=== PATIENT | male | born 1940 | race Caucasian/White ===

== ENCOUNTER 2019-09-18 10:50 | Emergency (ER) | payer MEDICARE, SELFPAY ==
[2019-09-18 10:51] VITALS: BP 152/81; PULSE 90; RESP 18; TEMP 36.4; O2SAT 99; BMI 26.1
--- NOTE | 2019-09-18 11:08 | ED.VIS.GEN ---
History of Present Illness Chief Complaint: Hypertension Informant: Patient Narrative: Patient has no current complaints. He stopped taking his diltiazem about 15 days ago due to side effects. He went to the PCPs office today to try to get new medication, he was found to be hypertensive and sent to the emergency department. He has no chest pain shortness of breath fever chills cough or congestion. He denies a headache or visual changes. No difficulty urinating. Past Medical History - Allergies and Home Meds Allergies/Adverse Reactions: Allergies No Known Allergies Allergy (Verified 09/18/19 10:55) Primary Care Physician: Marshall Pineda MD [STAFF PHYSICIAN] - Past Medical History: - - Hypertension Surgical History: tonsillectomy, - - Left arm surgery secondary to laceration Smoking Status: Former smoker - Family History Maternal Family History: Reports: Hypertension Paternal Family History: Reports: Heart Disease Review of Systems All systems negative except as indicated General: Denies: Fever Eyes: Denies: Visual changes - left, Visual changes - right Cardiovascular: Denies: Chest pain Respiratory: Denies: Dyspnea, Cough Gastrointestinal: Denies: Abdominal pain, Nausea Musculoskeletal: Denies: Myalgias, Back pain Neurological: Denies: Headache, Weakness Psych: Denies: Depression Hematologic: Denies: Easy bleeding Allergy: Denies: Swelling of the tongue Physical Exam Vital Signs/Narrative: Vital Signs Temp Pulse Resp BP Pulse Ox 09/18/19 10:51 97.5 F L 90 18 152/81 H 99 General: Well nourished, Well developed Eyes: Perrl ENT: Moist mucous membranes, No rhinorrhea Neck: Supple Cardiovascular: Regular rate, Regular rhythm Respiratory: No distress, CTA bilaterally Abdomen: Soft Back: Nontender, Normal Inspection Extremities: Nontender Skin: Normal color Neurological: Alert, Oriented x3, Normal Strength, Normal Sensation Psychological: Normal affect Diagnostic/Tx/Re-eval - Medical Decision Making Patient has normal renal function. We will change his prescription to a lisinopril hydrochlorothiazide combination. His blood pressure in the emergency department is 152/81. ED Disposition - Plan for ED Patient: Disposition: Home or Assisted Living Diagnosis: Hypertension Instructions: HYPERTENSION, Established Prescriptions: Lisinopril/Hydrochlorothiazide [Lisinopril-Hctz 10-12.5 mg Tab] 1 ea PO DAILY #30 tab Prescription Printed Referrals: Marshall Pineda MD [STAFF PHYSICIAN] - 3-5 Days
[2019-09-18 11:44] LABS: Anion Gap 5 (5-15); BUN 13 mg/dL (7-18); Calcium,Total 9.1 mg/dL (8.5-10.1); Chloride 103 mmol/L (98-107); Creatinine, Serum 0.93 mg/dL (0.70-1.30); EST Glomerular Filtration Rate 83 mL/min (>60); Est Glom Filt Rate - Afr Amer 100 mL/min (>60); Estimated Creatinine Clearance 63.35 ml/min; Glucose 155 mg/dL (74-106); Potassium 4.2 mmol/L (3.5-5.1); Sodium Level 135 mmol/L (136-145)
[2019-09-18 12:04] VITALS: BP 168/69; PULSE 68; RESP 12; O2SAT 97
[2019-09-18] MEDS: hydroCHLOROthiazide 12.5mg 12.5 MG PO (12:05)
[2019-09-18] MEDS: Lisinopril 10 MG Tablet PO (12:06)
== END 2019-09-18 12:15 | disposition home or self-care (01) ==
PROVIDERS: Emergency Provider Emergency Medicine; Family Provider Family Medicine; PCP Family Medicine
DX: I10 Essential (primary) hypertension (principal); Z82.49 Family history of ischemic heart disease and other diseases of the circulatory system; Z87.891 Personal history of nicotine dependence
CPT/HCPCS: 80048; 99284; A4216

== ENCOUNTER → 2019-09-28 08:33 | Outpatient (CLI) | payer MEDICARE, SELFPAY ==
[2019-09-18 10:51] VITALS: BMI 26.1
[2019-09-28 11:31] LABS: Anion Gap 9 (5-15); BUN 15 mg/dL (7-18); BUN/Creat Ratio 16.4 RATIO (10-20); Calcium,Total 9.6 mg/dL (8.5-10.1); Chloride 98 mmol/L (98-107); Cholesterol 156 mg/dL (200); Creatinine, Serum 0.91 mg/dL (0.70-1.30); EST Glomerular Filtration Rate 85 mL/min (>60); Est Glom Filt Rate - Afr Amer 103 mL/min (>60); Glucose 123 mg/dL (74-106); High Density Lipoprotein 43 mg/dL; PSA,Total - Annual Screen 2.53 ng/mL (0.00-4.00); Potassium 3.8 mmol/L (3.5-5.1); Sodium Level 133 mmol/L (136-145); Triglycerides 138 mg/dL; Very Low Density Lipoprotein 28 mg/dL (5-40)
[2019-09-28 17:45] LABS: Hemoglobin A1c 6.3 % (4.2-6.3)
== END ==
PROVIDERS: Family Provider Family Medicine; PCP Family Medicine; Visit Provider Family Medicine
DX: I10 Essential (primary) hypertension (principal); N40.0 Benign prostatic hyperplasia without lower urinary tract symptoms; R73.09 Other abnormal glucose; Z12.5 Encounter for screening for malignant neoplasm of prostate
CPT/HCPCS: 36415; 80048; 80061; 83036; 84153; G0103

== ENCOUNTER 2019-12-24 07:21 | Inpatient (IN) | payer MEDICARE, SELFPAY ==
[2019-12-24] VITALS (16 sets, daily range): BP systolic 158–240; BP diastolic 66–86; PULSE 67–111; RESP 11–18; TEMP 36.5–37.1; O2SAT 97–100; BMI 27.3; BMI 25.9; BMI 26.0
--- NOTE | 2019-12-24 07:29 | RAD_ITS ---
STUDY: X-RAY CHEST REASON FOR EXAM: Male, 79 years old. chest pain, palpitations TECHNIQUE: AP COMPARISON: None. FINDINGS: EKG leads project over the chest. The lungs are clear and expanded. There is no demonstrated pleural abnormality. Normal size heart. Normal mediastinum and rico. Normal visualized pulmonary arteries. Normal visualized aortic arch and descending thoracic aorta. Normal visualized thoracic spine. Normal visualized ribs, clavicles, and shoulders. There is no demonstrated abnormality of the visualized soft tissue structures of the upper abdomen. RAD/Chest PA and Lateral IMPRESSION: Nonacute portable x-ray examination of the chest. Electronically Signed: Neymar De Leon MD (Brooks) at 8:02 EDT , Service support ,
--- NOTE | 2019-12-24 07:29 | EKG12_ITS ---
Test Reason : CP Blood Pressure : / mmHG Vent. Rate : 099 BPM Atrial Rate : 099 BPM P-R Int : 188 ms QRS Dur : 086 ms QT Int : 332 ms P-R-T Axes : 078 -50 081 degrees QTc Int : 426 ms Sinus rhythm with occasional and consecutive Premature ventricular complexes and Fusion complexes Possible Left atrial enlargement Left anterior fascicular block Left ventricular hypertrophy with repolarization abnormality Abnormal ECG Confirmed by KATHLEEN NGUYỄN, KARINA ([id number]), editor producer MILTON MAYEN ([id number]) on 12/25/2019 8:25:21 AM Referred By: ELI Confirmed By:KARINA WANG MD
--- NOTE | 2019-12-24 07:33 | ED.DCSUM_ITS ---
History of Present Illness Chief Complaint: Palpitations Informant: Patient Onset: Yesterday Narrative: Patient presents with home intermittent palpitations and racing heart since yesterday afternoon. States without chest pain with it. No dyspnea or cough. No fevers or myalgias. No nausea or vomiting. History of hypertension and hypercholesterolemia. Denies diabetes heart failure history. History of similar in the past with negative work-ups. 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 States PCP has placed him on Cardizem in the past for blood pressure however had side effects. Currently denies any chest pain. Denies any anticoagulant therapy. Pain substernal no radicular symptoms. EMS EKG evaluated noted electronically atrial fibrillation however on reevaluation noted to be sinus rhythm first- degree block with PAC noted at a rate of 122. He states he has been having more urine frequency since feeling his fast heart rate. No dysuria. Prior similar symptoms: Yes Past Medical History - Allergies and Home Meds Allergies/Adverse Reactions: Allergies No Known Allergies Allergy (Verified 12/24/19 07:28) Past Medical History: - - Hypertension, hypercholesterolemia Surgical History: tonsillectomy, - - Left arm surgery secondary to laceration Smoking Status: Former smoker - Family History Maternal Family History: Reports: Hypertension Paternal Family History: Reports: Heart Disease Review of Systems General: Denies: Chills, Fever, Sweats Eyes: Denies: Visual changes - bilaterally, Diplopia ENT: Denies: Rhinorrhea, Sore throat Cardiovascular: Reports: Chest pain, Palpitations, Heart racing Respiratory: Denies: Dyspnea, Cough, Dyspnea on exertion Gastrointestinal: Denies: Abdominal pain, Nausea, Vomiting, Diarrhea, Melena, Hematochezia Genitourinary: Denies: Dysuria, Hematuria, Frequency Musculoskeletal: Denies: Back pain, Extremity Pain Skin: Denies: Rash, Wounds Neurological: Denies: Headache, Weakness, Numbness Physical Exam Vital Signs/Narrative: Vital Signs Temp Pulse Resp BP Pulse Ox 12/24/19 07:23 98.2 F 108 H 14 240/86 H 100 Inital Vital Signs reviewed: Yes General: Well nourished, Well developed, No Acute Distress Head: Normocephalic, Atraumatic Eyes: Perrl, EOMI ENT: Moist mucous membranes, No rhinorrhea Neck: Supple, Nontender Cardiovascular: Regular rate, Regular rhythm, No murmurs, - - Heart rate 96 on exam Respiratory: No distress, CTA bilaterally, Chest nontender Abdomen: Soft, Nontender, Nondistended, Normal bowel sounds Back: Nontender, Normal Inspection Extremities: Nontender, No edema Skin: Normal color, No rash Neurological: Alert, Oriented x3, Cranial nerves II-XII grossly intact, Normal Strength, Normal Sensation Psychological: Normal affect, Normal Mood Diagnostic/Tx/Re-eval Clinical Impression(s) from Imaging Studies Chest X-Ray 12/24/19 07:29 IMPRESSION: Nonacute portable x-ray examination of the chest. Electronically Signed: Neymar De Leon MD (Brooks) at 8:02 EDT , Service support , Abnormal Lab Results 12/24/19 12/24/19 12/24/19 07:25 07:25 07:25 WBC 14.0 H RBC 4.96 Hgb 15.5 Hct 44.9 MCV 90.5 MCH 31.3 MCHC 34.5 RDW Std Deviation 40.2 RDW Coeff of Yoan 12.1 Plt Count 378 MPV 8.8 Immature Gran % (Auto) 0.400 Neut % (Auto) 76.4 H Lymph % (Auto) 13.6 L [place] % (Auto) 8.7 Eos % (Auto) 0.4 Baso % (Auto) 0.5 Absolute Neuts (auto) 10.7 H Absolute Lymphs (auto) 1.91 Nucleated RBC % 0 Sodium 132 L Potassium 3.0 L Chloride 97 L Carbon Dioxide 24.0 Anion Gap 11 BUN 15 Creatinine 1.10 Estim Creat Clear Calc 51.82 Est GFR (MDRD) Af Amer 83 Est GFR (MDRD) Non-Af 68 BUN/Creatinine Ratio 13.6 Glucose 218 H Calcium 9.5 Magnesium 2.2 Troponin I 0.094 H - EKG Initial EKG Interpretation: Sinus Rhythm - Sinus rate of 99, no ST or T wave changes. PVCs noted. - Medical Decision Making Patient currently chest pain-free intermittent palpitations. EKG sinus rhythm rate of 99, PVCs noted, there is isolated T wave inversion in aVL old from p revious January 2017. He had noted EMS EKG is sinus rhythm with a first-degree AV block. Patient had cardiac work-up initiated. He was given aspirin. Troponin returned at 0.096. Chest x-ray negative. White count 14, he had no cough. With urine frequency UA sent. Potassium 3.0, orally replaced, magnesium sent is normal. Reevaluation blood pressure 216/66, heart rate 100s, will give labetalol to help with blood pressure and heart rate. Patient denies any headache or visual changes with elevated blood pressure. I spoke with patient's shaping machine tender Dr. Pittman at 0825, he states no additional anticoagulants at this time. We will plan on continue beta-blockers, admit to hospitalist service and trend his troponin. He does not plan on stress testing, heart cath if needed depending on repeat troponins. Hospitalist is on page for discussion. Spoke with Dr. London for admission. - Critical Care Time Critical care time (excluding procedures): 30-74 minutes, Discussing w/Consultants, Arranging Admission or Transfer ED Disposition - Plan for ED Patient: Disposition: Acute Care Hospital [facility] Diagnosis: Chest pain, Elevated troponin, Palpitations, Accelerated hypertension, Hypokalemia
[2019-12-24] MEDS: Aspirin 81 MG TAB.CHEW 324 MG PO (07:35)
[2019-12-24 07:40] LABS: Absolute Lymphocyte Count 1.91 X10^3/uL (0.83-4.51); Absolute Neutrophil Count 10.7 X10^3/uL (2.0-7.7); Basophil# 0.07 X10^3/uL; Basophil% 0.5 % (0-1); Eosinophil# 0.06 X10^3/uL; Eosinophils% 0.4 % (0-5); Hematocrit 44.9 % (40-54); Hemoglobin 15.5 g/dL (13.0-16.5); Lymphocyte # 1.91 X10^3/ul (4.0); Lymphocyte % 13.6 % (19-41); Mean Corp Hgb Conc 34.5 g/dL (32-36); Mean Corpuscular Hgb 31.3 pg (27.0-32.0); Mean Corpuscular Volume 90.5 fL (80-94); Mean Platelet Vol. 8.8 fl (6.2-12.0); Monocyte# 1.22 X10^3/uL; Monocyte% 8.7 % (0-10); NRBC Flagged by Analyzer 0 % (0-5); Neutrophil % 76.4 % (47-70); Platelet Count 378 K/mm3 (150-450); RBC Distribution Width CV 12.1 % (11.6-14.6); RBC Distribution Width SD 40.2 fl (35.1-43.9); Red Blood Count 4.96 M/mm3 (4.6-6.2)
[2019-12-24 07:54] LABS: Anion Gap 11 (5-15); BUN 15 mg/dL (7-18); BUN/Creat Ratio 13.6 RATIO (10-20); Calcium,Total 9.5 mg/dL (8.5-10.1); Chloride 97 mmol/L (98-107); EST Glomerular Filtration Rate 68 mL/min (>60); Est Glom Filt Rate - Afr Amer 83 mL/min (>60); Estimated Creatinine Clearance 51.82 ml/min; Glucose 218 mg/dL (74-106); Sodium Level 132 mmol/L (136-145)
[2019-12-24 08:22] LABS: Magnesium 2.2 mg/dL (1.6-2.6)
[2019-12-24 08:27] LABS: Prothrombin Time (Protime)PT. 13.2 SECONDS (11.7-14.9)
[2019-12-24 08:28] LABS: Partial Thromboplast Time 27.6 Seconds (24.1-36.2)
--- NOTE | 2019-12-24 08:34 | HP.PCM_ITS ---
History of Present Illness Date of Admission: 12/24/19 Chief Complaint: palpitations, chest pain The patient is a 79 year old M with a past medical history as outlined. He was admitted through the ED on 12/24/2019 with a complaint of palpitations that started the day before admission. He admitted to associated chest pain with a palpitations. He denied any shortness of breath, dizziness, cough, lightheadedness or dizziness or nausea or vomiting. He admits to a history of recurrent intermittent heart palpitations but denied any history of A. fib. EMS was called and Per ED documentation, EMS EKG noted A. fib but when he came into the ED he was noted to be in sinus rhythm with first-degree block and PACs with a rate of 122. In the ED, he was noted to have severely elevated blood pressure of 240/86 which gradually came down to 192/82. Heart rate was initially 108, but vitals were otherwise stable. CBC showed WBC of 14 was otherwise normal. Initial troponin was 0.094 and potassium was 3 with sodium of 132 and magnesium of 2.2. Chest x-ray showed no acute cardiopulmonary process. He has been admitted to be managed for palpitations and chest pain to rule out ACS. [] Past Medical History Past Medical History (Chronic Problems): Chronic Problems BPH (benign prostatic hyperplasia) (Chronic) Hyperlipemia (Chronic) Hypertension (Chronic) Allergies No Known Allergies Allergy (Verified 12/24/19 07:28) Home Medications: Ambulatory Orders Medication Instructions Recorded Atorvastatin Calcium [Lipitor] 5 mg PO DAILY 12/16/14 Finasteride [Proscar] 5 mg PO DAILY 12/16/14 Cholecalciferol (Vitamin D3) 2,000 unit PO DAILY 10/13/17 [Vitamin D3] Lisinopril/Hydrochlorothiazide 1 ea PO DAILY 12/24/19 [Lisinopril-Hctz 10-12.5 mg Tab] Losartan Potassium [Cozaar] 100 mg PO DAILY 12/24/19 Surgical History: tonsillectomy, - - Left arm surgery secondary to laceration Psychiatric History: No pertinent psych hx Smoking Status: Former smoker - *Family History Maternal History Items: Hypertension Paternal History Items: Heart Disease Review of Systems Constitutional: Denies: Anorexia, Chills, Fever, Malaise, Weakness Eyes: Denies: Blurred vision HEENT: Denies: Head Aches, Sinus Congestion, Sinus Drainage Cardiovascular: Reports: Chest Pain, Palpitations. Denies: Chest Pressure, C hest Tightness, Edema, Heaviness, Light Headedness, Orthopnea, Paroxysmal Noc. Dyspnea, Syncope Respiratory: Denies: Cough, Shortness of Breath, Shortness of breath at rest, S hortness of breath upon exertion, Sputum production Gastrointestinal: Denies: Abdominal Pain, Nausea, Vomiting Genitourinary: Reports: Frequency. Denies: Dysuria Musculoskeletal: Denies: Joint Pain, Joint Tenderness Skin: Denies: Rash, Wounds Neurological: Denies: Numbness, Tingling, Focal weakness Psychiatric: Denies: Anxiety, Depression, Homicidal Ideations, Suicidal Ideations Hematologic/ Lymphatic: Denies: Easy Bruising, Easy Bleeding VTE Information - Inpt Only VTE Present on Admission: No VTE Pharm Prophylaxis ordered?: Yes Patient Problems: Active and Suspected Problems Elevated troponin (Acute) Palpitations (Acute) Accelerated hypertension (Acute) Hypokalemia (Acute) Chest pain (Acute) - Physical Exam Vitals/I&O's: Vital Signs Temp Pulse Resp BP Pulse Ox 98.2 F 108 H 14 240/86 H 100 12/24/19 07:23 12/24/19 07:23 12/24/19 07:23 12/24/19 07:23 12/24/19 07:23 Oxygen Delivery Method Room Air Weight: 180 lb Body Mass Index (BMI) 27.3 General: Alert, Oriented x3, Cooperative, No apparent distress HEENT: Atraumatic, PERRLA, EOMI, Normocephalic Oral: Moist Mucosa Neck: Supple, No JVD, Negative Carotid Bruits Lungs: Clear to auscultation, Normal air movement, No rhonchi, No wheeze, No rales Cardiovascular: Regular rate, Regular Rhythm, Normal S1, Normal S2, No murmurs Abdomen: Bowel Sounds Present, Soft, Non Tender, Non-Distended, No Hepato- splenomegaly Extremities: No clubbing, No cyanosis, No edema, Capillary Refill Less than 3 Seconds Skin: No rashes, No breakdown Musculoskeletal: No Tenderness to Palpation of Joints or Extremities Lymphatic: No Cervical, Supraclavicular, or Inguinal Adenopathy Neurological: Cranial nerves II-XII grossly intact, Neuro grossly intact, Motor Exam 5/5 strength throughout Psych/Mental Status: Normal Affect, Appropriate, Alert and oriented to time, place, person, mood and affect Laboratory Results 12/24/19 07:25: WBC 14.0 H, RBC 4.96, Hgb 15.5, Hct 44.9, MCV 90.5, MCH 31.3, MCHC 34.5, RDW Std Deviation 40.2, RDW Coeff of Yoan 12.1, Plt Count 378, MPV 8.8, Immature Gran % (Auto) 0.400, Neut % (Auto) 76.4 H, Lymph % (Auto) 13.6 L, [place] % (Auto) 8.7, Eos % (Auto) 0.4, Baso % (Auto) 0.5, Absolute Neuts (auto) 10.7 H, Absolute Lymphs (auto) 1.91, Nucleated RBC % 0 12/24/19 07:25: PT 13.2, INR 1.0, APTT 27.6 12/24/19 07:25: Sodium 132 L, Potassium 3.0 L, Chloride 97 L, Carbon Dioxide 24.0, Anion Gap 11, BUN 15, Creatinine 1.10, Estim Creat Clear Calc 51.82, Est GFR (MDRD) Af Amer 83, Est GFR (MDRD) Non-Af 68, BUN/Creatinine Ratio 13.6, Glucose 218 H, Calcium 9.5, Troponin I 0.094 H 12/24/19 07:25: Magnesium 2.2 Diagnostic Data Chest X-Ray 12/24/19 07:29 IMPRESSION: Nonacute portable x-ray examination of the chest. Electronically Signed: eNymar De Leon MD (Brooks) at 8:02 EDT , Service support , Assessment/Plan All Active Problems Elevated troponin (Acute) Palpitations (Acute) Accelerated hypertension (Acute) Hypokalemia (Acute) Chest pain (Acute) 79 y/o admitted with a complaint of palpitations and chest pain 1. Hypertensive emergency * BP was 240/86 on admission, with associated chest pain and palpitations, meets criteria for hypertensive emergency * BP came down to 192/82 with medication * patient claims compliance with home BP meds. * on lisinopril/HCTZ and losartan. Will give PO clonidine 0.3mg once. * hold lisinopril/HCTZ and continue losartan 100mg daily. add on metoprolol 25mg bid * 2. Chest pain * patient says he has chest pain with tachycardia * initial troponiin was 0.094, and trended up to 0.162 * EKG showed no acute ST changes * cycle troponins * PO aspirin 81mg daily. SL nitroglycerin prn for chest pain * cardiology consulted. 3. Sinus tachycardia * HR was 108 on admission, but is now down to 72 * potassium is 3, which could be contributing. mg is 2.2 * will start on metoprolol 25mg bid. * IV labetalol prn 4. BPH: on finasteride. 5. Hyperlipidemia: on statin DVT prophylaxis: lovenox Code status: full code * Patient counseled extensively about different types of CODE STATUS including full code, DNR CCA and DNR CCA. Patient elects to be full code. Total awhc-yx-inut time 16 minutes. Inpatient E&M: 77921 Init Hosp L3 Procedures: 55796 Advncd Care Plan 30 Min
--- NOTE | 2019-12-24 10:01 | ECHOD_ITS ---
Reason For Study: Arrhythmia Procedure This was a 2D Doppler, Color Flow transthoracic echocardiogram. Exam performed portable in patient room. Left Ventricle Normal LV size. Left ventricular systolic function is normal. The estimated ejection fraction is 60 %. Stage 2 diastolic dysfunction. No regional wall motion abnormalities noted. Right Ventricle Normal RV size. Normal systolic function. Atria Normal left atrium. Normal right atrium. Mitral Valve Normal mitral valve. Tricuspid Valve Normal tricuspid valve. Mild (1+) tricuspid valve insufficiency. Pulmonary artery systolic pressure is 30 mmHg. Aortic Valve Normal aortic valve. Trisinus/trileaflet aortic valve. Pulmonic Valve Normal pulmonic valve. Great Vessels Normal aortic root. The pulmonary artery is normal size. Normal inferior vena cava. Pericardium/Pleural No pericardial effusion. MMode/2D Measurements & Calculations LVIDd: 4.1 cm IVSd: 1.1 cm Ao root diam: 3.2 cm LVIDs: 2.2 cm LVPWd: 1.1 cm RVDd: 3.5 cm FS: 45.2 % LAV(MOD-bp): 43.9 ml LA A4 area: 15.8 cm2 LA dimension(2D): 3.5 cm LAV(MOD-bp) Indexed: 22.8 ml/m2 LAV(MOD-sp2): 45.1 ml LAV(MOD-sp4): 40.8 ml RA A4 area: 14.7 cm2 Doppler Measurements & Calculations MV E max prem: 144.1 cm/sec Lat Peak E' Prem: 12.2 cm/sec Med Peak E' Prem: 6.1 cm/sec MV A max prem: 116.6 cm/sec E/E' lat: 11.9 E/E' med: 23.5 MV E/A: 1.2 MV V2 max: 138.6 cm/sec MV P1/2t max prem: 132.1 cm/sec Ao V2 max: 163.6 cm/sec MV max P.7 mmHg MV P1/2t: 63.1 msec Ao max P.7 mmHg MV V2 mean: 88.0 cm/sec MV dec slope: 613.4 cm/sec2 MV mean P.5 mmHg MVA(P1/2t): 3.5 cm2 MV V2 VTI: 38.2 cm LV V1 max: 110.0 cm/sec PA V2 max: 113.7 cm/sec TR max prem: 258.6 cm/sec LV V1 max P.8 mmHg TR max P.7 mmHg Interpretation Summary Normal LV size. Left ventricular systolic function is normal. The estimated ejection fraction is 60 %. Stage 2 diastolic dysfunction. Structurally normal valves. Ordering Physician: Saumya London Referring Physician: Evelio Villalba Performed By: Jyoti Gastelum RDCS
--- NOTE | 2019-12-24 11:29 | CASEMGMT ---
Patient has a Healthcare Power of Coin Box Inspector and a Healthcare Living will. He is aware they are not on file at [facility] and to bring in copies when able. Idalia SEE MSW
[2019-12-24] MEDS: Metoprolol Tartrate 25 MG Tablet PO (11:35)
[2019-12-24] MEDS: cloNIDine HCl 0.1 MG Tablet (11:47)
[2019-12-24] MEDS: Clonidine HCl 0.1 MG, Clonidine HCl 0.2 MG 0.3 MG PO (12:02)
[2019-12-24 13:34] LABS: Mucous, Urine 0 SEEN /hpf (<or=2+); Squamous Epithelial Cells - UA 0 SEEN /hpf (0-5); White Blood Cells 0 SEEN /hpf (0-5)
[2019-12-24 13:39] LABS: Color, Urine Yellow (Yellow); Glucose, Dipstick 50 mg/dl (Normal); Ketone-Dipstick Negative (Negative); Leukocyte Esterase-Dipstick 25 /ul (Negative); Nitrite-Dipstick Negative (Negative); Occult Blood-Urine 25 /ul (Negative); Protein-Dipstick Negative (Negative); Urine Bilirubin Dipstick Negative (Negative); Urine Clarity Clear (Clear); Urine Urobilinogen Normal (Normal)
[2019-12-24 13:45] LABS: Bacteria RARE /hpf (None Seen); Red Blood Cells-Urine 0-5 SEEN /hpf (0-5)
--- NOTE | 2019-12-24 15:10 | CON.PCM_ITS ---
Reason for Consult Date of Consultation: 12/24/19 Reason for Consultation: Chest pain and irregular heartbeat History of Present Illness: The patient is a 79 year old M with a past medical history of palpitations. He was admitted through the ED on 12/24/2019 with a complaint of palpitations that started the day before admission. He admitted to associated chest pain with a palpitations. He denied any shortness of breath, dizziness, cough, lightheadedness or dizziness or nausea or vomiting. He admits to a history of recurrent intermittent heart palpitations but denied any history of A. fib. EMS was called and Per ED documentation, EMS EKG noted A. fib but when he came into the ED he was noted to be in sinus rhythm with first-degree block and PACs with a rate of 122. In the ED, he was noted to have severely elevated blood pressure of 240/86 which gradually came down to 192/82. Heart rate was initially 108, but vitals were otherwise stable. He was treated with intravenous labetalol and I was called for further evaluation and management. Of note was the fact that approximately 5 years ago the patient underwent stress testing where he exercised to 7 metabolic equivalents with peaked T waves being noted. No obvious ischemia was noted though the patient did develop some chest discomfort requiring sublingual nitroglycerin. He did not follow-up for care. He says that at this particular time he is free of any chest discomfort. [] Past Medical History Allergies/Adverse Reactions: Allergies No Known Allergies Allergy (Verified 12/24/19 07:28) Home Medications: Ambulatory Orders Medication Instructions Recorded Atorvastatin Calcium [Lipitor] 5 mg PO DAILY 12/16/14 Finasteride [Proscar] 5 mg PO DAILY 12/16/14 Cholecalciferol (Vitamin D3) 2,000 unit PO DAILY 10/13/17 [Vitamin D3] Lisinopril/Hydrochlorothiazide 1 ea PO DAILY 12/24/19 [Lisinopril-Hctz 10-12.5 mg Tab] Losartan Potassium [Cozaar] 100 mg PO DAILY 12/24/19 Past Medical History (Chronic Problems): Chronic Problems BPH (benign prostatic hyperplasia) (Chronic) Hyperlipemia (Chronic) Hypertension (Chronic) Surgical History: tonsillectomy, - - Left arm surgery secondary to laceration Psychiatric History: No pertinent psych hx - *Family History Maternal History Items: Hypertension Paternal History Items: Heart Disease Lives: Spouse/ Significant Other Smoking Status: Former smoker Tobacco Use: Non-smoker Alcohol: None Drugs: None Review of Systems - Review of Systems General: Denies: Fever, Night Sweats, Fatigue HEENT: Denies: Vision Change Cardiovascular: Reports: Chest Discomfort, Palpitations. Denies: Shortness of Breath, Orthopnea, PND, Peripheral Edema, Lightheadedness, Dizziness, Near Syncope, Syncope Respiratory: Denies: Cough, Sputum Production, Hemoptysis Gastrointestinal: Denies: Hematemesis, Hematochezia, Melena Genitourinary: Denies: Dysuria, Hematuria Muscoloskeletal: Denies: Myalgias Skin: Denies: Rash Neurological: Denies: Dizziness Psychiatric: Denies: Anxiety Hematologic/ Lymphatic: Denies: Anemia Subjectve: Pleasant gentleman in no distress Objective: Vital Signs Temp Pulse Resp BP Pulse Ox 98.7 F 81 16 158/74 H 99 12/24/19 13:24 12/24/19 14:39 12/24/19 13:24 12/24/19 13:24 12/24/19 13:24 Oxygen Delivery Method Room Air Weight: 170 lb 13.732 oz Body Mass Index (BMI) 25.9 General: Awake, Alert, Oriented x 3 HEENT: PERRL, EOMI, Sclera Non Icteric Neck: Supple, Good ROM, No Lymph Node Enlargement Lungs: Clear to auscultation Cardiovascular: Regular Rhythm, Normal S1, Normal S2, No Murmurs, No Rubs, No Gallops Vascular: No Carotid Bruits, Normal Femoral Pulses, Normal Radial Pulses, Normal Dorsalis Pedal Pulse, Normal Posterior Tibial Pulses Abdomen: Bowel Sounds Present, Soft, Non Tender, No HSM, No Organomegaly Extremities: No Cyanosis, No Clubbing, No edema Musculoskeletal: No Erythema Skin: No Rashes Lymphatic: No Lymph Node Enlargement Neurological: No Focal Motor or Sensory Deficit Psych/Mental Status: Appropriate 12/24/19 07:25: WBC 14.0 H, RBC 4.96, Hgb 15.5, Hct 44.9, MCV 90.5, MCH 31.3, MCHC 34.5, Plt Count 378, MPV 8.8, Immature Gran % (Auto) 0.400, Neut % (Auto) 76.4 H, Lymph % (Auto) 13.6 L, Travis % (Auto) 8.7, Eos % (Auto) 0.4, Baso % (Auto) 0.5, Absolute Neuts (auto) 10.7 H, Nucleated RBC % 0 12/24/19 07:25: PT 13.2, INR 1.0, APTT 27.6 12/24/19 07:25: Sodium 132 L, Potassium 3.0 L, Chloride 97 L, Carbon Dioxide 24.0, Anion Gap 11, BUN 15, Creatinine 1.10, Est GFR (MDRD) Af Amer 83, Est GFR (MDRD) Non-Af 68, BUN/Creatinine Ratio 13.6, Glucose 218 H, Calcium 9.5, Troponin I 0.094 H 12/24/19 07:25: Magnesium 2.2 12/24/19 07:25: Magnesium Cancelled 12/24/19 10:30: Troponin I 0.162 H 12/24/19 13:20: Urine Color Yellow, Urine Clarity Clear, Urine pH 7.0, Ur Specific [place] 1.010, Urine Protein Negative, Urine Glucose (UA) 50 H, Urine Ketones Negative, Urine Occult Blood 25 H, Urine Nitrite Negative, Urine Bilirubin Negative, Urine Urobilinogen Normal, Ur Leukocyte Esterase 25 H, Urine RBC 0-5 SEEN, Urine WBC 0 SEEN 12/24/19 13:35: Troponin I 0.159 H Rhythm: EKG: Normal sinus rhythm with frequent premature ventricular complexes ECHO: Preserved left ventricular systolic function Stress Test: Cardiac Cath: PCI: CT Surgery: Holter monitor: EPS: PPM: CXR: Chest CT Scan: Assessment/Plan 1. Chest discomfort * Patient presents with chest discomfort which is somewhat atypical. It appears to be related to the premature ventricular complexes however the fact that he was at rest is somewhat concerning. In addition his cardiac enzymes appear to be trending upwards. This is concerning especially in light of the fact that his last stress test was not completely normal. He is of course hesitant about repeating his stress test at this time and therefore I would like to recommend that we obtain visualization of his coronary anatomy. The risk benefits and alternatives have been explained to him he understands and agrees to proceed. * It is possible that the above was secondary to his markedly elevated blood pressure. His echocardiogram demonstrated overall preserved left ventricular systolic function. No LVH was noted. * 2. Severe uncontrolled hypertension-hypertensive emergency * Patient presents with hypertensive emergency and requires treatment with intravenous labetalol. He appears to be doing fairly well at this particular time. * His echocardiogram demonstrated preserved left ventricular systolic function * My recommendation will be for him to continue with the losartan * Discontinue hydrochlorothiazide * Metoprolol 50 mg twice a day * May need to add amlodipine if blood pressure still elevated * If blood pressure does not improve may need to screen for secondary hyperaldosteronism 3. Hyperlipidemia * His lipid profile appears to be under good control at this time * We will continue risk factor modification * * Thank you for allowing me to participate in the care of your patient. Please don't hesitate to call if any issues arise.
[2019-12-24] MEDS: Clopidogrel Bisulfate 300 MG Tablet PO (16:51)
[2019-12-24] MEDS: 0.9% Saline Lock 10 ML Syringe IV (19:18)
[2019-12-24] MEDS: Metoprolol Tartrate 50 MG Tablet PO (21:46)
[2019-12-24] MEDS: Atorvastatin Calcium 20 MG Tablet PO (21:47)
[2019-12-25] VITALS (30 sets, daily range): BP systolic 89–141; BP diastolic 39–61; PULSE 48–77; RESP 10–18; TEMP 36.3–37; O2SAT 92–99
--- NOTE | 2019-12-25 05:55 | EKG12_ITS ---
Test Reason : AM EKG Blood Pressure : / mmHG Vent. Rate : 068 BPM Atrial Rate : 068 BPM P-R Int : 208 ms QRS Dur : 080 ms QT Int : 426 ms P-R-T Axes : 035 -46 032 degrees QTc Int : 452 ms Normal sinus rhythm Left anterior fascicular block Abnormal ECG When compared with ECG of 24-DEC-2019 07:24, MANUAL COMPARISON REQUIRED, DATA IS UNCONFIRMED Confirmed by ROMARIO THORNTON ([id number]), food expeditor DANNI LOOMIS ([id number]) on 12/27/2019 8:02:06 AM Referred By: DR MONTEZ Confirmed By:ROMARIO THORNTON
[2019-12-25 06:19] LABS: Absolute Lymphocyte Count 1.71 X10^3/uL (0.83-4.51); Absolute Neutrophil Count 8.8 X10^3/uL (2.0-7.7); Basophil# 0.05 X10^3/uL; Basophil% 0.4 % (0-1); Eosinophil# 0.08 X10^3/uL; Eosinophils% 0.7 % (0-5); Hematocrit 44.4 % (40-54); Hemoglobin 15.1 g/dL (13.0-16.5); Lymphocyte # 1.71 X10^3/ul (4.0); Lymphocyte % 14.4 % (19-41); Mean Corpuscular Hgb 30.8 pg (27.0-32.0); Mean Corpuscular Volume 90.4 fL (80-94); Mean Platelet Vol. 8.7 fl (6.2-12.0); Monocyte# 1.27 X10^3/uL; Monocyte% 10.7 % (0-10); NRBC Flagged by Analyzer 0 % (0-5); Neutrophil # 8.75 X10^3/uL (2.7-7.7); Neutrophil % 73.5 % (47-70); Platelet Count 376 K/mm3 (150-450); RBC Distribution Width CV 12.7 % (11.6-14.6); Red Blood Count 4.91 M/mm3 (4.6-6.2); White Blood Count 11.9 K/mm3 (4.4-11.0)
[2019-12-25] MEDS: Aspirin E.C. 81 MG Tablet PO (06:32)
[2019-12-25] MEDS: Clopidogrel Bisulfate 75 MG Tablet PO (06:32)
[2019-12-25 07:01] LABS: Anion Gap 7 (5-15); BUN 17 mg/dL (7-18); BUN/Creat Ratio 20.7 RATIO (10-20); Calcium,Total 9.2 mg/dL (8.5-10.1); Chloride 105 mmol/L (98-107); Creatinine, Serum 0.82 mg/dL (0.70-1.30); EST Glomerular Filtration Rate 96 mL/min (>60); Est Glom Filt Rate - Afr Amer 116 mL/min (>60); Estimated Creatinine Clearance 69.51 ml/min; Glucose 141 mg/dL (74-106); Potassium 4.7 mmol/L (3.5-5.1); Sodium Level 134 mmol/L (136-145); Thyroid Stim Hormone (TSH) 1.93 uIU/mL (0.358-3.74)
--- NOTE | 2019-12-25 07:42 | CASEMGMT ---
According to [facility], the following are in-network tertiary facilities: [facility], [place], [facility], [place], [facility], [facility], [place], [facility], and . Dwight ORELLANA CM
--- NOTE | 2019-12-25 08:40 | PN.CARD_ITS ---
Subjectve: Patient seen and evaluated and appears to be doing well Objective: Vital Signs Temp Pulse Resp BP Pulse Ox 97.6 F L 64 11 L 89/41 L 98 12/25/19 06:28 12/25/19 06:53 12/25/19 06:28 12/25/19 06:30 12/25/19 06:28 Oxygen Delivery Method Room Air Weight: 170 lb 13.732 oz Body Mass Index (BMI) 25.9 Intake and Output for Last 24 Hours 12/23/19 12/24/19 12/25/19 23:59 23:59 23:59 Intake Total 750 / 750 40 / 40 Balance 750 / 750 40 / 40 General: Awake, Alert, Oriented x 3 HEENT: PERRL, EOMI, Sclera Non Icteric Neck: Supple, Good ROM, No Lymph Node Enlargement Lungs: Clear to auscultation Cardiovascular: Regular Rhythm, Normal S1, Normal S2, No Murmurs, No Rubs, No Gallops Vascular: No Carotid Bruits, Normal Femoral Pulses, Normal Radial Pulses, Normal Dorsalis Pedal Pulse, Normal Posterior Tibial Pulses Abdomen: Bowel Sounds Present, Soft, Non Tender, No HSM, No Organomegaly Extremities: No Cyanosis, No Clubbing, No edema Musculoskeletal: No Erythema Skin: No Rashes Lymphatic: No Lymph Node Enlargement Neurological: No Focal Motor or Sensory Deficit Psych/Mental Status: Appropriate 12/24/19 07:25: Magnesium Cancelled 12/24/19 10:30: Troponin I 0.162 H 12/24/19 13:20: Urine Color Yellow, Urine Clarity Clear, Urine pH 7.0, Ur Specific [place] 1.010, Urine Protein Negative, Urine Glucose (UA) 50 H, Urine Ketones Negative, Urine Occult Blood 25 H, Urine Nitrite Negative, Urine Bilirubin Negative, Urine Urobilinogen Normal, Ur Leukocyte Esterase 25 H, Urine RBC 0-5 SEEN, Urine WBC 0 SEEN 12/24/19 13:35: Troponin I 0.159 H 12/25/19 05:40: WBC 11.9 H, RBC 4.91, Hgb 15.1, Hct 44.4, MCV 90.4, MCH 30.8, MCHC 34.0, Plt Count 376, MPV 8.7, Immature Gran % (Auto) 0.300, Neut % (Auto) 73.5 H, Lymph % (Auto) 14.4 L, Sampson % (Auto) 10.7 H, Eos % (Auto) 0.7, Baso % (Auto) 0.4, Absolute Neuts (auto) 8.8 H, Nucleated RBC % 0 12/25/19 05:40: Sodium 134 L, Potassium 4.7, Chloride 105, Carbon Dioxide 22.0, Anion Gap 7, BUN 17, Creatinine 0.82, Est GFR (MDRD) Af Amer 116, Est GFR (MDRD) Non-Af 96, BUN/Creatinine Ratio 20.7 H, Glucose 141 H, Calcium 9.2 Rhythm: EKG: ECHO: Stress Test: Cardiac Cath: PCI: CT Surgery: Holter monitor: EPS: PPM: CXR: Chest CT Scan: Medical Necessity - Tobacco Use Smoking Status: Former smoker Tobacco Use: Non-smoker Assessment/Plan 1. Chest discomfort * Patient presents with chest discomfort which is somewhat atypical. It appears to be related to the premature ventricular complexes however the fact that he was at rest is somewhat concerning. * He underwent cardiac catheterization which demonstrated the following: * Normal left main coronary artery * Left anterior descending artery with minimal disease * Codominant left circumflex artery with distal 90% stenosis * Right coronary artery with moderate mid segment stenosis * Preserved left ventricular systolic function * Based on the above the patient underwent angioplasty and stenting of the distal left circumflex artery. * Will discharge in a.m. * 2. Severe uncontrolled hypertension-hypertensive emergency * Patient presents with hypertensive emergency and requires treatment with intravenous labetalol. He appears to be doing fairly well at this particular time. * His echocardiogram demonstrated preserved left ventricular systolic function * My recommendation will be for him to continue with the losartan * Discontinue hydrochlorothiazide * Metoprolol 50 mg twice a day * May need to add amlodipine if blood pressure still elevated * If blood pressure does not improve may need to screen for secondary hyp eraldosteronism 3. Hyperlipidemia * His lipid profile appears to be under good control at this time * We will continue risk factor modification * * Thank you for allowing me to participate in the care of your patient. Please don't hesitate to call if any issues arise.
--- NOTE | 2019-12-25 08:59 | CL.D_ITS ---
Patient Name: MICHAEL HENRY Study Date: 12/25/2019 Performing: Albaro Pittman MD Ht: 68.11 inches 173 cm : 1940 Wt: 171.96 lbs 78 kg Age: 79 Gender: male BSA: 1.92 PROCEDURE(S) PERFORMED BW53-IIM/COR/LV BP21-MSQ W OR WO PTCA, SINGLE CORONARY ARTERY CLINICAL PROFILE AND INDICATIONS Indications: Suspected CAD, Suspected CAD Heart Failure: None Stress/Imaging Stress/Image Study Performed: No CAD Presentations: Unstable angina. 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 Preserved ejection fraction RECOMMENDATIONS Referred for immediate PCI DESCRIPTION OF PROCEDURE The patient arrived to the procedure lab. The risks and benefits of the procedure as well as a full d escription of our services here and current unavailability of surgical backup were fully explained to the patient and/or their significant other prior to the catheterization. The Timeout was completed, verifying the correct patient and procedure. The patient's procedural site was prepped and draped in the usual fashion. Local anesthetic was given subcutaneously to right radial region with Lidocaine 2% . Using a modified Seldinger technique, arterial access was obtained via the right radial artery, a 6 Fr sheath was inserted. Left Coronary Artery selective angiography was performed in multiple views u sing a 5 Fr. JL3.5 catheter. Right Coronary Artery selective angiography was then performed in multip le views using a 5 Fr. JR 4 catheter. LV to AO pullback pressures were then recorded. Left Ventriculo graphy was performed in BETH projection using a 5 Fr. Pigtail catheter.The arterial sheath was pulled and a TR Band was applied for hemostasis - 11CC AIR CORONARY ANGIOGRAPHY DOMINANCE: Co- Dominant LEFT HEART ASSESSMENT Left Ventricular Ejection Fraction: by LV Gram 60 % Normal Left Ventricular systolic function LEFT MAIN: Angiographically normal LEFT ANTERIOR DESCENDING ARTERY: Mild luminal irregularities CIRCUMFLEX ARTERY: PROX CIRC: Mild luminal irregularities LT PDA: Left PDA: Mid - 90 % Stenosis RIGHT CORONARY ARTERY: Moderate luminal irregularities up to 50% COMPLICATIONS No Complications PROCEDURE MEDICATIONS Versed 1 mg IV Fentanyl 25 mcg IV Fentanyl 25 mcg IV Versed 2 mg IV Oxygen: 2 L/min via nasal cannula Heparin diluted in 23cc Heparinized saline. Patient given 10cc IA of this solution. 12/25/2019 08:09: 44 Heparin 6000 unit(s) IV 12/25/2019 08:31:18 Nitro 200 mcg IC 12/25/2019 08:39:24 Nitro 200 mcg IC 12/25/2019 08:39:24 Verapamil 2.5mg, Ntg 100mcgs, 2000 units of Heparin diluted in 23cc Heparinized saline. Patient give n 10cc IA of this solution. 12/25/2019 08:09:44 IV Bolus: .9 NaCl 350ml total 12/25/2019 08:14:31 IV Fluids: .9 NaCl decreased to 150 ml/hr 12/25/2019 08:53:45 SUMMARY OF HEMODYNAMIC DATA Time AIR REST ECG 07:46:03 AO 78/37 (47) SA 08:13:53 AO 170/77 (115) 08:19:17 LV 87/0, 7 08:27:51 LV 119/1, 15 08:28:36 LV 118/0, 14 08:28:43 LVp 120/0, 15 08:28:48 AOp 94/45 (60) 08:28:53 Signed By Albaro Pittman MD On 12/25/2019 08:58:55 Albaro Pittman MD
--- NOTE | 2019-12-25 09:09 | EKG12_ITS ---
Test Reason : POST STENT PLACEMENT Blood Pressure : / mmHG Vent. Rate : 064 BPM Atrial Rate : 064 BPM P-R Int : 226 ms QRS Dur : 138 ms QT Int : 460 ms P-R-T Axes : 060 002 171 degrees QTc Int : 474 ms Sinus rhythm with 1st degree A-V block Left bundle branch block Abnormal ECG When compared with ECG of 25-DEC-2019 05:49, MANUAL COMPARISON REQUIRED, DATA IS UNCONFIRMED Confirmed by ROMARIO THORNTON ([id number]), online content editor DANNI LOOMIS ([id number]) on 12/27/2019 7:51:51 AM Referred By: HILLARY Confirmed By:ROMARIO THORNTON
[2019-12-25 09:11] LABS: ACT Activated Clotting Time 235 sec (74-137)
--- NOTE | 2019-12-25 09:26 | CL.I_ITS ---
Patient Name: MICHAEL HENRY Study Date: 12/25/2019 Performing: Derek Weldon MD Ht: 68.11 inches 173 cm : 1940 Wt: 171.96 lbs 78 kg Age: 79 Gender: male BSA: 1.92 PROCEDURE(S) PERFORMED KH40-RFC W OR WO PTCA, SINGLE CORONARY ARTERY CLINICAL PROFILE AND CO-MORBIDITIES Patient presents with NSTEMI for urgent cardiac cath Indications: Suspected CAD, Suspected CAD, ACS > 24 hrs, New Onset Angina <= 2 months, Suspected CAD Heart Failure: None Stress/Imaging Stress/Image Study Performed: No Stress/Image Study Performed: No Angina Classification Anginal Classification w/in 2 Weeks: CCS III CAD Presentations: Unstable angina. Unstable angina. Non-STEMI. Symptom onset Date/Time: 0 Time Not Available Comorbidities/Risk Factors: Hypertension Dyslipidemia CONCLUSIONS Successful PTCA/GORDO distal LCX with a 2.25 x 24 Promus Synergy at 12 BRENNAN; 75%-->0%, no dissection. RECOMMENDATIONS Highly recommend quitting all tobacco products Follow up with primary therapeutic recreation leader Risk factor modification ASA Indefinitley Plavix for at least 12 months Routine post interventional care Refer for Outpatient Cardiac Rehab Manual sheath removal per protocol Follow up with Dr. Pittman TR band placed with good tamponade. DESCRIPTION OF PROCEDURE The patient arrived to the procedure lab. The risks and benefits of the procedure as well as a full d escription of our services here and current unavailability of surgical backup were fully explained to the patient and/or their significant other prior to the catheterization. The Timeout was completed, verifying the correct patient and procedure. The patient's procedural site was prepped and draped in the usual fashion. Local anesthetic was given subcutaneously to right radial region with Lidocaine 2% Using a modified Seldinger technique,arterial access was obtained via the right radial artery, a 6Fr sheath was inserted. Left Coronary Artery selective angiography was performed in multiple views usin g a 5 Fr. JL3.5 catheter. Right Coronary Artery selective angiography was then performed in multiple views using a 5 Fr. JR 4 catheter. LV to AO pullback pressures were then recorded. Left Ventriculogra phy was performed in BETH projection using a 5 Fr. Pigtail catheter.The images were reviewed and options discussed. A decision was then made to proceed with an Intervention, IVUS or oth er adjunct procedure. EBU 3.5 Guide catheter was inserted and engaged into the LCA. BMW Guide wire was advanced to the DISTAL CIRC. Angiogram performed pre balloon dilatation. 2.0X12 EMERGE Balloon catheter was inserted. Balloon catheter was advanced across lesion in the circumflex, distal. PTCA balloon inflated at 6 at ms for 12 secs. PTCA balloon inflated at 6 atms for 8 secs. PTCA balloon inflated at 6 atms for 6 sec s. PTCA balloon inflated at 8 atms for 11 secs. Angiogram performed post balloon dilatation. Angiogra m performed pre stent deployment. 2.25X20 SYNERGY Drug Eluting stent was inserted. Drug Eluting stent was removed intact, failed to cross lesion 2.25X24 SYNERGY Drug Eluting stent was inserted. Angiogra m performed pre stent deployment. Angiogram performed post stent deployment. The arterial sheath wa s pulled and a TR Band was applied for hemostasis - 11CC AIR INTERVENTION INFORMATION LESION SITE: Circumflex (Distal) Lesion Complexity: High/C, lesion at bifurcation: No, lesion length: 24 mm, thrombus present: No, cul prit lesion: Yes Pre Stenosis: 75 % Pre intervention KITA flow: 3 PROCEDURE: Drug Eluting Stent with pre dilatation. Post Stenosis: 0 % Post intervention KITA flow: 3 Lesion Devices: Lara .014 BMW [place] Straight 190cm Dedrick Sci EMERGE MR 2.00x12 BALLOON Dedrick Sci Synergy MR GORDO 2.25x24 COMPLICATIONS No Complications PROCEDURE MEDICATIONS Versed 1 mg IV Fentanyl 25 mcg IV Fentanyl 25 mcg IV Versed 2 mg IV Oxygen: 2 L/min via nasal cannula Heparin diluted in 23cc Heparinized saline. Patient given 10cc IA of this solution. 12/25/2019 08:09: 44 Heparin 6000 unit(s) IV 12/25/2019 08:31:18 Nitro 200 mcg IC 12/25/2019 08:39:24 Nitro 200 mcg IC 12/25/2019 08:39:24 Verapamil 2.5mg, Ntg 100mcgs, 2000 units of Heparin diluted in 23cc Heparinized saline. Patient give n 10cc IA of this solution. 12/25/2019 08:09:44 IV Bolus: .9 NaCl 350ml total 12/25/2019 08:14:31 IV Fluids: .9 NaCl decreased to 150 ml/hr 12/25/2019 08:53:45 SUMMARY OF HEMODYNAMIC DATA Time AIR REST ECG 07:46:03 AO 78/37 (47) SA 08:13:53 AO 170/77 (115) 08:19:17 LV 87/0, 7 08:27:51 LV 119/1, 15 08:28:36 LV 118/0, 14 08:28:43 LVp 120/0, 15 08:28:48 AOp 94/45 (60) 08:28:53 Signed By Derek Weldon MD On 12/25/2019 9:25:45 AM Derek Weldon MD
[2019-12-25] MEDS: 0.9% Normal Saline 1,000 ML 150 ML IV (09:42)
[2019-12-25] MEDS: Finasteride 5 MG Tablet PO (09:43)
--- NOTE | 2019-12-25 10:00 | EKG12_ITS ---
Test Reason : AM EKG Blood Pressure : / mmHG Vent. Rate : 082 BPM Atrial Rate : 082 BPM P-R Int : 206 ms QRS Dur : 088 ms QT Int : 378 ms P-R-T Axes : 028 -46 065 degrees QTc Int : 441 ms Normal sinus rhythm Left anterior fascicular block Abnormal ECG When compared with ECG of 25-DEC-2019 09:21, MANUAL COMPARISON REQUIRED, DATA IS UNCONFIRMED Confirmed by ROMARIO THORNTON ([id number]), editor magazine DANNI LOOMIS ([id number]) on 12/27/2019 7:56:46 AM Referred By: MELIDA Confirmed By:ROMARIO THORNTON
[2019-12-25 10:10] LABS: ACT Activated Clotting Time 197 sec (74-137)
--- NOTE | 2019-12-25 10:33 | CRPHASE1 ---
Cardiac Rehabilitation Info Cardiac Rehabilitation Program Information: Cardiac Rehabilitation is important for patients like you who are recovering from a heart problem. Cardiac rehabilitation programs are recognized as integral to the continued care of the patient with coronary heart disease. The cardiac rehabilitation program is designed to optimize a patient's physical, psychological, and social functioning. Health career services director work in cardiac rehabilitation programs and assist you with getting the treatments you need to get stronger and healthier - like exercise, healthy eating habits, and medications. Cardiac rehabilitation has been show to help people with heart problems live longer and have better life enjoyment than people who do not go to cardiac rehabilitation. Please contact the Cardiac Rehabilitation Program at [facility] at in two weeks if you have not heard from them.
--- NOTE | 2019-12-25 12:41 | CRPHASE1 ---
Patient Communication PHII Cardiac Rehab Discussed with Patient:: Yes Guide to Cardiac Rehab Given to Patient:: Yes Cardiac Rehab Facility Choice List Given to Patient:: Yes Choice Program [facility] CR PHII:: Communication Given to CR, Refer to [facility] Discharge/Home/Social Eval Discharge Disposition: Home - PT DENIES NEED OR WANT OF ATTENDING CR AT THIS TIME. Cardiac Rehabilitation Info Cardiac Rehabilitation Program Information: Cardiac Rehabilitation is important for patients like you who are recovering from a heart problem. Cardiac rehabilitation programs are recognized as integral to the continued care of the patient with coronary heart disease. The cardiac rehabilitation program is designed to optimize a patient's physical, psychological, and social functioning. Health care trainer work in cardiac rehabilitation programs and assist you with getting the treatments you need to get stronger and healthier - like exercise, healthy eating habits, and medications. Cardiac rehabilitation has been show to help people with heart problems live longer and have better life enjoyment than people who do not go to cardiac rehabilitation. Please contact the Cardiac Rehabilitation Program at [facility] at in two weeks if you have not heard from them.
[2019-12-25] MEDS: Nitroglycerin Oint 1 INCH PACKET TRANSDERM. ×3 (12:43→23:03)
--- NOTE | 2019-12-25 12:44 | CRPH1.INSTRU ---
General Education CAD and cardiac anatomy and function:: Not instructed Explanation of diagnoses and procedures:: Not instructed Sign/Symptoms of [place]:: Not instructed Antiplatelet therapy: Needs reinforcement Proper use of NTG-SL: Not instructed Emergency procedures and activation of EMS: Not instructed Compliance of all prescribed medications: Not instructed Smoking Nicotine/Smoking Response Code:: Not instructed Dyslipidemia Recommendations Include:: Lipid profile not available Overweight/Obesity Overweight/Obesity:: Not instructed Hypertension Hypertension:: Needs reinforcement, Not instructed Heart Disease Heart Disease Response Code:: Not instructed Diabetes Patient Diabetes Risk Factors Are:: No documented hx of diabetes Metabolic Syndrome Metabolic Syndrome Response Code:: Not instructed Sedentary Sedentary Response Code:: Not instructed Stress Stress Response Code:: Not instructed - PT DENIES NEED OR DESIRE TO ATTEND CR
--- NOTE | 2019-12-25 12:45 | CASEMGMT ---
REYNA RUBY assessment: Face to Face with patient for initial transition planning/care coordination assessment. RN CM introduced self and role at [facility], pt voices understanding and consents to assessment at this time. Pt is sitting up in bed in no distress at this time. Pt is A/Ox4 at this time and answers all questions appropriately at this time. Care providers, pharmacy, and demographics verified at this time. Presentation: Palpitations since yesterday, increases w/ exertion, also c/o CP Admitting dx: Palpitations PCP: Orly Specialists: Toya cardio Preferred Pharmacy: [facility] Insurance: [facility] Prescription Benefit: [facility] Living Will/HPOA: Pt states has a LW/HPOA and is aware that they are not on file at [facility] at this time. Pt states that his , Cheryl Lindquist, is HPOA. LNOK: Cheryl Lindquist, Living Arrangements: Pt states lives with in home and states no concerns at home at this time. Pt states is independent with ADL's. Transportation: Pt states drives self and states no transportation concerns at this time. DME/HHC: Pt states no current DME or need for any at this time. Pt states no hx of HHC or SNF in the past. Pt states no concerns with going home at time of discharge. Pt states is retired. Pt states does not smoke or drink ETOH. Pt states no further concerns/needs at this time. Pt does get somewhat upset with this RN CM at this time and frustrated with answering questions but as this RN CM continued to talk/let pt vent, pt states he is upset because he came in for palpitations and no one is 'fixing that or telling me what they are from.' Dr. London and Jane ORELLANA updated on all, voice understanding and both into room at this time. Pt Goal: Home Plan: [place] REYNA RUBY
--- NOTE | 2019-12-25 12:49 | PN_ITS ---
Patient Problems: Active and Suspected Problems (Last Updated 12/25/19 @ 13:56 by Veronica Zimmerman) Elevated troponin (Acute) Palpitations (Acute) Accelerated hypertension (Acute) Hypokalemia (Acute) Chest pain (Acute) Subjective: Patient seen and examined. He was seen after cardiac cath. He had no complaints. Review of symptoms otherwise negative. He has remained hemodynamically stable. Findings of cath with single-vessel coronary artery disease involving the distal circumflex artery had mild to moderate disease noted in the RCA and he had PCI of the distal circumflex artery. Vitals/I&O's: Vital Signs Temp Pulse Resp BP Pulse Ox 98.4 F 68 15 111/51 L 98 12/25/19 10:40 12/25/19 12:43 12/25/19 12:40 12/25/19 12:43 12/25/19 12:40 Oxygen Delivery Method Room Air Weight: 170 lb 13.732 oz Body Mass Index (BMI) 25.9 Intake and Output for Last 24 Hours 12/23/19 12/24/19 12/25/19 23:59 23:59 23:59 Intake Total 750 / 750 40 / 40 Balance 750 / 750 40 / 40 General: Alert, Oriented x3, Cooperative, No apparent distress HEENT: Atraumatic, PERRLA, EOMI, Normocephalic Oral: Moist Mucosa Neck: Supple, No JVD, Negative Carotid Bruits Lungs: Clear to auscultation, Normal air movement, No rhonchi, No wheeze, No rales Cardiovascular: Regular rate, Regular Rhythm, Normal S1, Normal S2, No murmurs Abdomen: Bowel Sounds Present, Soft, Non Tender, Non-Distended, No Hepato- splenomegaly Extremities: No clubbing, No cyanosis, No edema, Capillary Refill Less than 3 Seconds Skin: No rashes, No breakdown, right wrist dressing Musculoskeletal: No Tenderness to Palpation of Joints or Extremities Lymphatic: No Cervical, Supraclavicular, or Inguinal Adenopathy Neurological: Cranial nerves II-XII grossly intact, Neuro grossly intact, Motor Exam 5/5 strength throughout Psych/Mental Status: Normal Affect, Appropriate, Alert and oriented to time, place, person, mood and affect Laboratory Results 12/24/19 13:20: Urine Color Yellow, Urine Clarity Clear, Urine pH 7.0, Ur Specific [place]idental 1.010, Urine Protein Negative, Urine Glucose (UA) 50 H, Urine Ketones Negative, Urine Occult Blood 25 H, Urine Nitrite Negative, Urine Bilirubin Negative, Urine Urobilinogen Normal, Ur Leukocyte Esterase 25 H, Urine RBC 0-5 SEEN, Urine WBC 0 SEEN, Ur Squamous Epith Cells 0 SEEN, Urine Bacteria RARE, Urine Mucus 0 SEEN 12/24/19 13:35: Troponin I 0.159 H 12/25/19 05:40: WBC 11.9 H, RBC 4.91, Hgb 15.1, Hct 44.4, MCV 90.4, MCH 30.8, MCHC 34.0, RDW Std Deviation 42.0, RDW Coeff of Yoan 12.7, Plt Count 376, MPV 8.7, Immature Gran % (Auto) 0.300, Neut % (Auto) 73.5 H, Lymph % (Auto) 14.4 L, [place] % (Auto) 10.7 H, Eos % (Auto) 0.7, Baso % (Auto) 0.4, Absolute Neuts (auto) 8.8 H, Absolute Lymphs (auto) 1.71, Nucleated RBC % 0 12/25/19 05:40: Sodium 134 L, Potassium 4.7, Chloride 105, Carbon Dioxide 22.0, Anion Gap 7, BUN 17, Creatinine 0.82, Estim Creat Clear Calc 69.51, Est GFR (MDRD) Af Amer 116, Est GFR (MDRD) Non-Af 96, BUN/Creatinine Ratio 20.7 H, Glucose 141 H, Calcium 9.2, TSH 1.93 12/25/19 08:50: Activated Clotting Time 235 H 12/25/19 09:55: Activated Clotting Time 197 H Diagnostic Data Chest X-Ray 12/24/19 07:29 IMPRESSION: Nonacute portable x-ray examination of the chest. Electronically Signed: Neymar De Leon MD (Brooks) at 8:02 EDT , Service support , Current Medications Acetaminophen (Tylenol) 650 mg PO Q6H PRN PRN PRN Reason: Pain Score 1-3/10 Aspirin (Ecotrin) 81 mg PO DAILY@0800 THANH Last Admin: 12/25/19 06:32 Dose: 81 mg Documented by: Atorvastatin Calcium (Lipitor) 20 mg PO QHS [facility] Last Admin: 12/24/19 21:47 Dose: 20 mg Documented by: Atropine Sulfate () 0.5 mg IV UD PRN PRN Reason: HR <50 bpm Clopidogrel Bisulfate (Plavix) 75 mg PO DAILY [facility] Last Admin: 12/25/19 06:32 Dose: 75 mg Documented by: Finasteride (Proscar) 5 mg PO DAILY [facility] Last Admin: 12/25/19 09:43 Dose: 5 mg Documented by: Glucagon () 1 mg IM .X1 PRN PRN Reason: Hypoglycemia Heparin Sodium (Beef Lung) (Heparin 500 Unit/5 Ml (100/Ml)) 500 unit IV UD PRN PRN Reason: HEPARIN FLUSH Sodium Chloride () 250 mls @ 15 mls/hr IV .[id number] PRN PRN Reason: Saline Flush Sodium Chloride () 250 mls @ 15 mls/hr IV .[id number] PRN PRN Reason: Additional IVPB Infusion Dextrose (Dextrose 10%-Water) 250 mls @ 999 mls/hr IV .Q16M PRN; Protocol PRN Reason: HYPOGLYCEMIA Sodium Chloride () 1,000 mls @ 15 mls/hr IV .Q48H [facility] Last Admin: 12/25/19 09:32 Dose: Not Given Documented by: Sodium Chloride () 1,000 mls @ 150 mls/hr IV .Q6H40M [facility] Stop: 12/25/19 15:52 Last Admin: 12/25/19 09:42 Dose: 150 mls/hr Documented by: Labetalol HCl (Trandate) 10 mg IV Q4H PRN PRN PRN Reason: BLOOD PRESSURE ELEVATION Last Admin: 12/24/19 19:13 Dose: 10 mg Documented by: Labetalol HCl (Trandate) 5 mg IV X1 PRN PRN Reason: SBP > 160 when pulling sheath Lorazepam (Ativan) 1 mg PO Q6H PRN PRN PRN Reason: BACK SPASMS/ANXIETY Losartan Potassium (Cozaar) 100 mg PO DAILY [facility] Last Admin: 12/25/19 10:37 Dose: Not Given Documented by: Metoclopramide HCl (Reglan) 5 mg IV Q6H PRN PRN PRN Reason: NAUSEA/VOMITING Metoprolol Tartrate (Lopressor (Beta Eric)) 50 mg PO BID [facility] Last Admin: 12/25/19 10:37 Dose: Not Given Documented by: Morphine Sulfate () 2 - 4 mg IV Q4H PRN PRN PRN Reason: Pain Score 1-10/10 Nitroglycerin (Nitrobid) 1 inch TRANSDERM. Q6 [facility] Stop: 12/26/19 10:00 Last Admin: 12/25/19 12:43 Dose: 1 inch Documented by: Nitroglycerin (Nitrostat) 0.4 mg SUBLINGUAL Q5M PRN PRN Reason: CARDIAC/CHEST PAIN Ondansetron HCl (Zofran) 4 mg IV Q8H PRN PRN PRN Reason: NAUSEA/VOMITING Sodium Chloride () 10 - 40 ml IV UD PRN PRN Reason: SALINE FLUSH Last Admin: 12/24/19 19:18 Dose: 20 ml Documented by: Sodium Chloride () 500 ml IV BOLUS PRN PRN Reason: VASO-VAGAL PROTOCOL STROKE Vital Signs/Narrative: Vital Signs Temp Pulse Resp BP Pulse Ox 12/25/19 12:43 68 111/51 L 12/25/19 12:40 67 15 111/51 L 98 12/25/19 12:10 63 16 106/47 L 96 12/25/19 11:40 61 16 117/46 L 99 12/25/19 11:25 58 L 16 125/59 H 96 12/25/19 11:10 62 16 105/51 L 99 12/25/19 11:05 66 12/25/19 10:55 63 14 126/61 H 97 12/25/19 10:40 98.4 F 69 16 92/42 L 96 12/25/19 10:25 64 18 98/49 L 99 12/25/19 10:10 64 16 94/49 L 99 12/25/19 09:55 67 16 96/48 L 97 12/25/19 09:40 72 18 92/39 L 92 12/25/19 09:25 48 L 16 94/42 L 93 12/25/19 09:10 97.3 F L 74 18 112/55 L 97 Medical Necessity - Tobacco Use Smoking Status: Former smoker Tobacco Use: Non-smoker Assessment/Plan All Active Problems (Last Updated 12/25/19 @ 13:56 by Veronica A Elsie) Elevated troponin (Acute) Palpitations (Acute) Accelerated hypertension (Acute) Hypokalemia (Acute) Chest pain (Acute) 79 y/o admitted with a complaint of palpitations and chest pain 1. Hypertensive emergency * BP is now down to 111/51 * on losartan 100mg daily and metoprolol 50mg bid. * * 2. CAD s/p stent * troponin peaked at 0.162 * had cardiac cath today which showed single vessel disease of distal left circumflex artery, with PCI and drug eluting stent placement * on aspirin and statin as well as plavix. 3. Sinus tachycardia * resolved. HR now normalised * on metoprolol 50mg bid. 4. BPH: on finasteride. 5. Hyperlipidemia: on statin DVT prophylaxis: lovenox Code status: full code * Inpatient E&M: 26400 Subs Hosp L2
--- NOTE | 2019-12-25 14:38 | PCM.PN.BLA ---
Progress Note Patient will be contacted by [facility] for an office appointment in approximately 4 weeks. STROKE Vital Signs/Narrative: Vital Signs Temp Pulse Resp BP Pulse Ox 12/25/19 13:40 73 16 98/41 L 97 12/25/19 12:43 68 111/51 L 12/25/19 12:40 67 15 111/51 L 98 12/25/19 12:10 63 16 106/47 L 96 12/25/19 11:40 61 16 117/46 L 99 12/25/19 11:25 58 L 16 125/59 H 96 12/25/19 11:10 62 16 105/51 L 99 12/25/19 11:05 66 12/25/19 10:55 63 14 126/61 H 97 12/25/19 10:40 98.4 F 69 16 92/42 L 96
[2019-12-25] MEDS: Atorvastatin Calcium 20 MG Tablet PO (22:15)
[2019-12-26] VITALS (7 sets, daily range): BP systolic 126–150; BP diastolic 57–67; PULSE 74–81; RESP 16; TEMP 36.8; O2SAT 98
[2019-12-26 06:12] LABS: Absolute Lymphocyte Count 1.24 X10^3/uL (0.83-4.51); Absolute Neutrophil Count 9.8 X10^3/uL (2.0-7.7); Basophil# 0.05 X10^3/uL; Basophil% 0.4 % (0-1); Eosinophil# 0.11 X10^3/uL; Eosinophils% 0.9 % (0-5); Hematocrit 39.5 % (40-54); Hemoglobin 13.3 g/dL (13.0-16.5); Lymphocyte # 1.24 X10^3/ul (4.0); Mean Corp Hgb Conc 33.7 g/dL (32-36); Mean Corpuscular Hgb 31.1 pg (27.0-32.0); Mean Corpuscular Volume 92.3 fL (80-94); Mean Platelet Vol. 8.9 fl (6.2-12.0); Monocyte# 1.09 X10^3/uL; Monocyte% 8.8 % (0-10); NRBC Flagged by Analyzer 0 % (0-5); Neutrophil # 9.77 X10^3/uL (2.7-7.7); Neutrophil % 79.3 % (47-70); Platelet Count 295 K/mm3 (150-450); RBC Distribution Width CV 12.7 % (11.6-14.6); Red Blood Count 4.28 M/mm3 (4.6-6.2); White Blood Count 12.3 K/mm3 (4.4-11.0)
[2019-12-26] MEDS: Nitroglycerin Oint 1 INCH PACKET TRANSDERM. (06:34)
[2019-12-26 06:50] LABS: ALB/GLOB Ratio 0.9 RATIO (0.9-2.4); AST(SGOT) 32 U/L (15-37); Alanine Aminotransfer ALT/SGPT 38 U/L (16-61); Albumin, Serum 3.2 g/dL (3.2-5.0); Alkaline Phosphatase 63 U/L (45-117); Anion Gap 10 (5-15); BUN 21 mg/dL (7-18); BUN/Creat Ratio 30.2 RATIO (10-20); Calcium,Total 8.5 mg/dL (8.5-10.1); Chloride 105 mmol/L (98-107); EST Glomerular Filtration Rate 116 mL/min (>60); Est Glom Filt Rate - Afr Amer 140 mL/min (>60); Globulin 3.4 g/dL (2.2-4.2); Glucose 129 mg/dL (74-106); Potassium 4.3 mmol/L (3.5-5.1); Protein, Total 6.6 g/dL (6.4-8.2); Sodium Level 133 mmol/L (136-145)
[2019-12-26] MEDS: Aspirin E.C. 81 MG Tablet PO (08:24)
[2019-12-26] MEDS: Losartan Potassium 100 MG Tablet PO (08:24)
[2019-12-26] MEDS: Metoprolol Tartrate 50 MG Tablet PO (08:24)
[2019-12-26] MEDS: Clopidogrel Bisulfate 75 MG Tablet PO (08:24)
[2019-12-26] MEDS: Finasteride 5 MG Tablet PO (08:24)
--- NOTE | 2019-12-26 09:32 | PCM.PN.CARD ---
Subjectve: Patient doing very well, no 24-hour events. Has no chest pain. Right radial site is clean/dry/intact with excellent pulses and capillary refill. Hemoglobin and creatinine within nominal limits. KG shows normal sinus rhythm, no acute changes. Objective: Vital Signs Temp Pulse Resp BP Pulse Ox 98.3 F 79 16 150/66 H 98 12/26/19 08:21 12/26/19 08:24 12/26/19 08:21 12/26/19 08:21 12/26/19 08:21 Oxygen Delivery Method Room Air Weight: 170 lb 13.732 oz Body Mass Index (BMI) 25.9 Intake and Output for Last 24 Hours 12/24/19 12/25/19 12/26/19 23:59 23:59 23:59 Intake Total 750 / 750 1790 / 1790 0 / 0 Balance 750 / 750 1790 / 1790 0 / 0 General: Awake, Alert, Oriented x 3 HEENT: PERRL, EOMI, Sclera Non Icteric Neck: Supple, Good ROM, No Lymph Node Enlargement Lungs: Clear to auscultation Cardiovascular: Regular Rhythm, Normal S1, Normal S2, No Murmurs, No Rubs, No Gallops Vascular: No Carotid Bruits, Normal Femoral Pulses, Normal Radial Pulses, Normal Dorsalis Pedal Pulse, Normal Posterior Tibial Pulses Abdomen: Bowel Sounds Present, Soft, Non Tender, No HSM, No Organomegaly Extremities: No Cyanosis, No Clubbing, No edema Neurological: No Focal Motor or Sensory Deficit 12/26/19 05:22: WBC 12.3 H, RBC 4.28 L, Hgb 13.3, Hct 39.5 L, MCV 92.3, MCH 31.1, MCHC 33.7, Plt Count 295, MPV 8.9, Immature Gran % (Auto) 0.600, Neut % (Auto) 79.3 H, Lymph % (Auto) 10.0 L, [place] % (Auto) 8.8, Eos % (Auto) 0.9, Baso % (Auto) 0.4, Absolute Neuts (auto) 9.8 H, Nucleated RBC % 0 12/26/19 05:22: Sodium 133 L, Potassium 4.3, Chloride 105, Carbon Dioxide 18.0 L, Anion Gap 10, BUN 21 H, Creatinine 0.70, Est GFR (MDRD) Af Amer 140, Est GFR (MDRD) Non-Af 116, BUN/Creatinine Ratio 30.2 H, Glucose 129 H, Calcium 8.5, Total Bilirubin 0.90 Rhythm: EKG: ECHO: Stress Test: Cardiac Cath: PCI: CT Surgery: Holter monitor: EPS: PPM: CXR: Chest CT Scan: Medical Necessity - Tobacco Use Smoking Status: Former smoker Tobacco Use: Non-smoker Assessment/Plan 1. Coronary artery disease: Patient status post angioplasty and drug-eluting stenting to his distal left circumflex receiving a 2.25X 24 Promus Synergy stent with an excellent result. Patient has minimal nonobstructive coronary disease of his remaining coronary vessels. He denies any chest pain feels much better. Would recommend he continue baby aspirin, Plavix, antihypertensive therapy as outlined in the MRF, and be enrolled in cardiac rehab in the next week or 2. The patient will follow-up with Dr. Pittman going forward. Patient may be discharged home from a cardiac standpoint. 2. Hyperlipidemia: Continue Lipitor therapy. Repeat lipid profile in 6 weeks time. 3. Hypertension: I believe the patient's hypertension is a major component to his anginal symptoms, and responded well to nitrate-based therapy. Recommend starting him on Imdur 30 mg p.o. daily going forward in addition to his losartan and metoprolol. He will return in 2 weeks time to our office for a blood pressure check. 4. Patient may be discharged home and follow-up with Dr. Pittman going forward. Inpatient E&M: 21553 [facility] Hosp L2
--- NOTE | 2019-12-26 09:39 | DCINST_ITS ---
- Discharge Diagnoses Current Active Problems: Current Active and Chronic Problems (Last Updated 12/25/19 @ 13:56 by Veronica Zimmerman) Atherosclerosis of coronary artery without angina pectoris (Chronic) Successful PTCA/GORDO distal LCX with a 2.25 x 24 Promus Synergy 12/25/2019 Stented coronary artery (Chronic 12/25/19) Successful PTCA/GORDO distal LCX with a 2.25 x 24 Promus Synergy 12/25/2019 Elevated troponin (Acute) Palpitations (Acute) Accelerated hypertension (Acute) Hypokalemia (Acute) Chest pain (Acute) You will use the following diet at home:: Cardiac Your food should be the consistency of: Regular Your liquids should be the consistency of: Regular/Thin Discharge Activity: Return to Normal Activity Weight Bearing Status: Weight bearing as tolerated Call your doctor if you observe: Shortness of breath, Dizziness, Fainting spells, Chest pain, Increased palpitations (irregular heartbeat) Instructions: ED Palpitations, First Aid: Heart Attacks, Heart Attack, Symptoms of a Heart Attack, Exercising After a Heart Attack, Know the Medications You're Taking Allergies/Adverse Reactions: Allergies No Known Allergies Allergy (Verified 12/24/19 07:28) Medications to take at Discharge Finasteride [Proscar] 5 mg PO DAILY 12/16/14 Cholecalciferol (Vitamin D3) [Vitamin D3] 2,000 unit PO DAILY 10/13/17 Aspirin E.C. [Ecotrin] 81 mg PO DAILY@0800 #30 tab 12/26/19 Atorvastatin Calcium [Lipitor] 40 mg PO QHS #30 tab 12/26/19 Clopidogrel Bisulfate [Plavix] 75 mg PO DAILY #30 tab 12/26/19 Losartan Potassium [Cozaar] 100 mg PO DAILY #30 tab 12/26/19 Metoprolol Tartrate [Lopressor (beta ino)] 50 mg PO BID #60 tab 12/26/19 The following prescriptions were given: Losartan Potassium [Cozaar] 100 mg PO DAILY #30 tab Transmission Status: Pending to [facility] #30 Aspirin E.C. [Ecotrin] 81 mg PO DAILY@0800 #30 tab Transmission Status: Pending to [facility] #30 Atorvastatin Calcium [Lipitor] 40 mg PO QHS #30 tab Transmission Status: Pending to [facility] #30 Metoprolol Tartrate [Lopressor (beta ino)] 50 mg PO BID #60 tab Transmission Status: Pending to [facility] #30 Clopidogrel Bisulfate [Plavix] 75 mg PO DAILY #30 tab Transmission Status: Pending to [facility] #30 Orders to be completed after discharge: Phase II, Outpatient Cardiac Rehab Location: None Selected Primary Care Physician: Evelio Villalba MD [Primary Care Provider] - Please follow up with your Primary Care Physician in: ONE WEEK Test Results: Test results from this visit will be discussed in further detail at your follow- up appointment, if applicable. Please Follow Up With: Albaro Pittman MD When: 2-4 WEEKS Proposed Discharge Date: 12/26/19
--- NOTE | 2019-12-26 09:41 | PCM.DC.SUM ---
Discharge Date and Diagnosis Date of Admission: 12/24/19 Date of Discharge: 12/26/19 - Primary Discharge Diagnosis Active and Suspected Problems (Last Updated 12/25/19 @ 13:56 by Veronica Zimmerman) Elevated troponin (Acute) Palpitations (Acute) Accelerated hypertension (Acute) Hypokalemia (Acute) Chest pain (Acute) CAD - Secondary Discharge Diagnosis Chronic Problems (Last Updated 12/25/19 @ 13:56 by Veronica Zimmerman) Atherosclerosis of coronary artery without angina pectoris (Chronic) Successful PTCA/GORDO distal LCX with a 2.25 x 24 Promus Synergy 12/25/2019 Stented coronary artery (Chronic 12/25/19) Successful PTCA/GORDO distal LCX with a 2.25 x 24 Promus Synergy 12/25/2019 BPH (benign prostatic hyperplasia) (Chronic) Hyperlipemia (Chronic) Hypertension (Chronic) Hospital Course and Treatment Imaging Results: Diagnostic Data Chest X-Ray 12/24/19 07:29 IMPRESSION: Nonacute portable x-ray examination of the chest. Electronically Signed: Neymar De Leon MD (Brooks) at 8:02 EDT , Service support , cardiology- Dr Pittman Operations: None Procedures: Cardiac catheterization Summary of Care Provided: The patient is a 79 year old M with a past medical history as outlined. He was admitted through the ED on 12/24/2019 with a complaint of palpitations that started the day before admission. He admitted to associated chest pain with a palpitations. He denied any shortness of breath, dizziness, cough, lightheadedness or dizziness or nausea or vomiting. He admits to a history of recurrent intermittent heart palpitations but denied any history of A. fib. EMS was called and Per ED documentation, EMS EKG noted A. fib but when he came into the ED he was noted to be in sinus rhythm with first-degree block and PACs with a rate of 122. In the ED, he was noted to have severely elevated blood pressure of 240/86 which gradually came down to 192/82. Heart rate was initially 108, but vitals were otherwise stable. CBC showed WBC of 14 was otherwise normal. Initial troponin was 0.094 and potassium was 3 with sodium of 132 and magnesium of 2.2. Chest x-ray showed no acute cardiopulmonary process. He was admitted to be managed for hypertensive emergency and chest pain rule out ACS as well as palpitations. Lisinopril and hydrochlorothiazide was discontinued and he was continued on his losartan and placed on p.o. metoprolol 50 mg twice daily. Troponins trended up to a peak of 0.162. Cardiology was consulted and patient was taken for cardiac cath which showed single-vessel coronary artery disease involving the distal circumflex artery. He also had mild disease noted in the RCA. Patient had PCI with drug-eluting stent placement of the distal circumflex artery. He was placed on aspirin and Plavix. Patient tachycardia resolved and he felt as well. He remained stable hemodynamically and was discharged home on 12/26/2019 with a prescription for p.o. aspirin 80 mg daily, p.o. Plavix 75 mg daily, and p.o. atorvastatin 40 mg nightly. He was also given a prescription for p.o. metoprolol 50 mg twice daily. He is follow-up with his primary care doctor and with cardiology within 2 to 3 weeks. Patient seen and examined prior to discharge. He felt well and said he felt ready to go home. Review of symptoms otherwise negative. Labs and vitals reviewed. Home medication reviewed and reconciled. o/e: Vital Signs Height 5 ft 8 in Weight: 170 lb 13.732 oz Weight in Pounds 170.9 lbs Pulse Ox 98 Temperature 98.3 F Pulse Rate 79 Respiratory Rate 16 Blood Pressure [BP] 112/53 Blood Pressure 150/66 Blood Pressure Position [BP] Semi-Fowlers Blood Pressure Position Semi-Fowlers General: Alert, Oriented x3, Cooperative, No apparent distress HEENT: Atraumatic, PERRLA, EOMI, Normocephalic Oral: Moist Mucosa Neck: Supple, No JVD, Negative Carotid Bruits Lungs: Clear to auscultation, Normal air movement, No rhonchi, No wheeze, No rales Cardiovascular: Regular rate, Regular Rhythm, Normal S1, Normal S2, No murmurs Abdomen: Bowel Sounds Present, Soft, Non Tender, Non-Distended, No Hepato-splenomegaly Extremities: No clubbing, No cyanosis, No edema, Capillary Refill Less than 3 Seconds Skin: No rashes, No breakdown, right wrist dressing Musculoskeletal: No Tenderness to Palpation of Joints or Extremities Lymphatic: No Cervical, Supraclavicular, or Inguinal Adenopathy Neurological: Cranial nerves II-XII grossly intact, Neuro grossly intact, Motor Exam 5/5 strength throughout Psych/Mental Status: Normal Affect, Appropriate, Alert and oriented to time, place, person, mood and affect Plan is for discharge home today as above. - Physical Exam Vitals/I&O's: Vital Signs Temp Pulse Resp BP Pulse Ox 98.3 F 79 16 150/66 H 98 12/26/19 08:21 12/26/19 08:24 12/26/19 08:21 12/26/19 08:21 12/26/19 08:21 Oxygen Delivery Method Room Air Weight: 170 lb 13.732 oz Body Mass Index (BMI) 25.9 Intake and Output for Last 24 Hours 12/24/19 12/25/19 12/26/19 23:59 23:59 23:59 Intake Total 750 / 750 1790 / 1790 0 / 0 Balance 750 / 750 1790 / 1790 0 / 0 Laboratory Results 12/25/19 09:55: Activated Clotting Time 197 H 12/26/19 05:22: WBC 12.3 H, RBC 4.28 L, Hgb 13.3, Hct 39.5 L, MCV 92.3, MCH 31.1, MCHC 33.7, RDW Std Deviation 43.0, RDW Coeff of Yoan 12.7, Plt Count 295, MPV 8.9, Immature Gran % (Auto) 0.600, Neut % (Auto) 79.3 H, Lymph % (Auto) 10.0 L, [place] % (Auto) 8.8, Eos % (Auto) 0.9, Baso % (Auto) 0.4, Absolute Neuts (auto) 9.8 H, Absolute Lymphs (auto) 1.24, Nucleated RBC % 0 12/26/19 05:22: Sodium 133 L, Potassium 4.3, Chloride 105, Carbon Dioxide 18.0 L, Anion Gap 10, BUN 21 H, Creatinine 0.70, Estim Creat Clear Calc 57.00, Est GFR (MDRD) Af Amer 140, Est GFR (MDRD) Non-Af 116, BUN/Creatinine Ratio 30.2 H, Glucose 129 H, Calcium 8.5, Total Bilirubin 0.90, AST 32, ALT 38, Alkaline Phosphatase 63, Total Protein 6.6, Albumin 3.2, Globulin 3.4, Albumin/Globulin Ratio 0.9 Current Medications Acetaminophen (Tylenol) 650 mg PO Q6H PRN PRN PRN Reason: Pain Score 1-3/10 Aspirin (Ecotrin) 81 mg PO DAILY@0800 [facility] Last Admin: 12/26/19 08:24 Dose: 81 mg Documented by: Atorvastatin Calcium (Lipitor) 20 mg PO QHS [facility] Last Admin: 12/25/19 22:15 Dose: 20 mg Documented by: Atropine Sulfate () 0.5 mg IV UD PRN PRN Reason: HR <50 bpm Clopidogrel Bisulfate (Plavix) 75 mg PO DAILY [facility] Last Admin: 12/26/19 08:24 Dose: 75 mg Documented by: Finasteride (Proscar) 5 mg PO DAILY [facility] Last Admin: 12/26/19 08:24 Dose: 5 mg Documented by: Glucagon () 1 mg IM .X1 PRN PRN Reason: Hypoglycemia Heparin Sodium (Beef Lung) (Heparin 500 Unit/5 Ml (100/Ml)) 500 unit IV UD PRN PRN Reason: HEPARIN FLUSH Sodium Chloride () 250 mls @ 15 mls/hr IV .[id number] PRN PRN Reason: Saline Flush Sodium Chloride () 250 mls @ 15 mls/hr IV .[id number] PRN PRN Reason: Additional IVPB Infusion Dextrose (Dextrose 10%-Water) 250 mls @ 999 mls/hr IV .Q16M PRN; Protocol PRN Reason: HYPOGLYCEMIA Sodium Chloride () 1,000 mls @ 15 mls/hr IV .Q48H [facility] Last Admin: 12/25/19 09:32 Dose: Not Given Documented by: Isosorbide Mononitrate (Imdur) 30 mg PO DAILY [facility] Labetalol HCl (Trandate) 10 mg IV Q4H PRN PRN PRN Reason: BLOOD PRESSURE ELEVATION Last Admin: 12/24/19 19:13 Dose: 10 mg Documented by: Labetalol HCl (Trandate) 5 mg IV X1 PRN PRN Reason: SBP > 160 when pulling sheath Lorazepam (Ativan) 1 mg PO Q6H PRN PRN PRN Reason: BACK SPASMS/ANXIETY Losartan Potassium (Cozaar) 100 mg PO DAILY [facility] Last Admin: 12/26/19 08:24 Dose: 100 mg Documented by: Metoclopramide HCl (Reglan) 5 mg IV Q6H PRN PRN PRN Reason: NAUSEA/VOMITING Metoprolol Tartrate (Lopressor (Beta Eric)) 50 mg PO BID [facility] Last Admin: 12/26/19 08:24 Dose: 50 mg Documented by: Morphine Sulfate () 2 - 4 mg IV Q4H PRN PRN PRN Reason: Pain Score 1-10/10 Nitroglycerin (Nitrostat) 0.4 mg SUBLINGUAL Q5M PRN PRN Reason: CARDIAC/CHEST PAIN Ondansetron HCl (Zofran) 4 mg IV Q8H PRN PRN PRN Reason: NAUSEA/VOMITING Sodium Chloride () 10 - 40 ml IV UD PRN PRN Reason: SALINE FLUSH Last Admin: 12/24/19 19:18 Dose: 20 ml Documented by: Sodium Chloride () 500 ml IV BOLUS PRN PRN Reason: VASO-VAGAL PROTOCOL Discharge Diet: Low fat/ Low Cholesterol Discharge Activity: Return to Normal Activity Weight Bearing Status: Weight bearing as tolerated Call your doctor if you observe: Shortness of breath, Dizziness, Fainting spells, Chest pain, Increased palpitations (irregular heartbeat) Home Medications: Medications to take at Discharge Finasteride [Proscar] 5 mg PO DAILY 12/16/14 Cholecalciferol (Vitamin D3) [Vitamin D3] 2,000 unit PO DAILY 10/13/17 Aspirin E.C. [Ecotrin] 81 mg PO DAILY@0800 #30 tab 12/26/19 atorvastatin 40 mg tablet 40 mg PO QHS #90 tab 12/26/19 clopidogrel 75 mg tablet 75 mg PO DAILY #90 tab 12/26/19 isosorbide mononitrate 30 mg tablet,extended release 24 hr 30 mg PO DAILY #30 tab 12/26/19 losartan 100 mg tablet 100 mg PO DAILY #90 tab 12/26/19 metoprolol tartrate 50 mg tablet 50 mg PO BID #180 tab 12/26/19 Following Prescrptions Were Given to Patient: Aspirin E.C. [Ecotrin] 81 mg PO DAILY@0800 #30 tab Transmission Status: Received by [facility] #30 Other Amb Orders: Phase II, Outpatient Cardiac Rehab Location: None Selected Primary Care Physician: Evelio Villalba MD [Primary Care Provider] - Please follow up with your Primary Care Physician in: ONE WEEK Please Follow Up With: Albaro Pittman MD When: 2-4 WEEKS Patient Instructions: Symptoms of a Heart Attack, First Aid: Heart Attacks, Heart Attack, Exercising After a Heart Attack, Know the Medications You're Taking, ED Palpitations Disposition: Home Minutes spent on discharge:: 40 Patient Condition:: Stable Medical Necessity - Tobacco Use Smoking Status: Former smoker Tobacco Use: Non-smoker Meaningful Use Info Meaningful Use Diagnoses (Choose all that apply): None applicable Inpatient E&M: 14068 Disch Hosp
[2019-12-26] MEDS: Isosorbide Mononitrate 30 MG Tablet PO (11:00)
--- NOTE | 2019-12-26 11:19 | PHA.DC.MC ---
Pharmacy Service has performed discharge medication reconciliation and counseling for this patient. 1. ASPIRIN 81MG PO DAILY 2. ATORVASTATIN 40MG PO QHS 3. CLOPIDOGREL 75MG PO DAILY 4. METOPROLOL TARTRATE 50MG PO BID 5. LOSARTAN 100MG PO DAILY The patient's discharge medication list was reviewed for discrepancies and discrepancies were resolved. Home Medications Finasteride [Proscar] 5 mg PO DAILY 12/16/14 Cholecalciferol (Vitamin D3) [Vitamin D3] 2,000 unit PO DAILY 10/13/17 Aspirin E.C. [Ecotrin] 81 mg PO DAILY@0800 #30 tab 12/26/19 Atorvastatin Calcium [Lipitor] 40 mg PO QHS #30 tab 12/26/19 Clopidogrel Bisulfate [Plavix] 75 mg PO DAILY #30 tab 12/26/19 Losartan Potassium [Cozaar] 100 mg PO DAILY #30 tab 12/26/19 Metoprolol Tartrate [Lopressor (beta ino)] 50 mg PO BID #60 tab 12/26/19 The patient was counseled on the following discharge medications and changes in medications for homegoing were reviewed. The Reason for Use, instructions for use, and potential side effects were reviewed for all new medications. The patient's questions regarding all of their medications were answered. The patient was able to verbally demonstrate an understanding of their discharge medications.
--- NOTE | 2019-12-26 11:49 | NURSING ---
Spoke with Eveline from [employer] d/t Dr Weldon being in PCI to verify 30 mg PO Imdur needed to be ordered as OP script. Discharge instructions signed by hospitalist, Dr London, minutes after script was ordered by Dr Weldon and therefore not mentioned for patient to take as OP.
[2019-12-26 14:34] LABS: Vitamin D 1,25-Dihydroxy 69.1 pg/mL (19.9-79.3)
--- NOTE | 2019-12-26 14:53 | ED.RN ---
I was alerted by REYNA RUBY this pt may have had concerns regarding source of palpitations despite receiving other treatment. We then determined he had been d/c. I explained I'd review chart to be aware of situation prn future inquiry from pt.
== END 2019-12-26 12:01 | disposition home or self-care (01) | DRG 247 ==
LOC: ED 08:31 → PCU 08:43
PROVIDERS: Internal Medicine Cardiovascular Disease; Admitting Provider Student in an Organized Health Care Education/Training Program; Emergency Provider Emergency Medicine; PCP Family Medicine; Visit Provider Student in an Organized Health Care Education/Training Program
DX: I21.4 Non-ST elevation (NSTEMI) myocardial infarction (principal); I16.1 Hypertensive emergency; I25.10 Atherosclerotic heart disease of native coronary artery without angina pectoris; I10 Essential (primary) hypertension; E87.6 Hypokalemia; E78.5 Hyperlipidemia, unspecified; N40.0 Benign prostatic hyperplasia without lower urinary tract symptoms; Z87.891 Personal history of nicotine dependence
CPT/HCPCS: 36415; 71046; 80048; 80053; 81001; 82652; 83735; 84443; 84484; 85025; 85347; 85610; 85730; 92928; 93005; 93306; 93458; 99152; 99153; 99285; J7030; Q9967; A4216; C1725; C1769; C1874; C1887; C1894; C9600

== ENCOUNTER 2020-05-01 11:13 | Observation (INO) | payer MEDICARE, SELFPAY ==
[2019-12-24 09:22] VITALS: BMI 25.9
[2020-05-01] VITALS (7 sets, daily range): BP systolic 116–145; BP diastolic 48–64; PULSE 55–71; RESP 16–18; TEMP 36.3–36.7; O2SAT 97–100; BMI 26.4; BMI 26.5
--- NOTE | 2020-05-01 11:44 | ED.DCSUM_ITS ---
- ER Visit Summary Date of Service: 05/01/20 Chief Complaint: Palpitations History of Present Illness: The patient is a 79 M who presents with palpitations that began yesterday. Patient states his palpitations began when he woke up yesterday morning. Patient states he felt like his heart was racing and beating hard. Patient states he took his morning medications and his palpitations resolved. Patient states that today he also noted some palpitations when he woke up this morning. Patient states he took his morning medications again today and his palpitations have resolved. Patient admits to some mild pain in his chest when he had the palpitations. Patient currently denies any chest pain. Patient denies any shortness of breath or cough. Patient denies any nausea or vomiting. Patient does admit to some urinary frequency and mild dysuria. Physical Examination: Vital signs are stable. Patient is afebrile. Patient is in no acute distress. Oral mucosa is pink and moist. Neck is supple. Trachea is midline. There is no JVD. Heart was regular rate and rhythm. Lungs are clear and equal bilaterally. Abdomen is soft. Bowel sounds are normal. There is no tenderness. Cranial nerves II through XII are intact. There are no focal motor or sensory deficits noted. Extremities are intact. There is no calf tenderness or edema. Test Results: EKG shows a normal sinus rhythm with a rate of 64. There are no acute ST or T wave changes. There is left ventricular hypertrophy noted. This was unchanged compared to previous EKG dated 12/26/2019. CBC, comprehensive metabolic profile, troponin, and urinalysis were obtained were all within normal limits. Portable chest x-ray was obtained. There is no acute cardiopulmonary process. This was interpreted by the radiologist and myself. Emergency Department Course and Treatment: Patient had no further episodes of palpitations here in the emergency department. Since the patient's symptoms are similar to symptoms he had prior to his most recent cardiac stent, I recommended admitting the patient to the hospital overnight for observation. Patient is agreeable with this. Case was discussed with the hospitalist. She will admit the patient for observation. Patient understood and was agreeable with the plan. All questions were answered. Disposition: Admit to hospital Impression: 1. Palpitations This note was generated with [employer] dictation software. It may contain incorrect words, spelling, and punctuation that were not noted in review of the chart prior to signing ED Disposition - Plan for ED Patient: Disposition: Acute Care Hospital [facility] Diagnosis: Palpitations Referrals: Evelio Villalba MD [Primary Care Provider] -
--- NOTE | 2020-05-01 12:12 | EKG12_ITS ---
Test Reason : AM EKG Blood Pressure : / mmHG Vent. Rate : 057 BPM Atrial Rate : 057 BPM P-R Int : 224 ms QRS Dur : 090 ms QT Int : 444 ms P-R-T Axes : 067 -42 036 degrees QTc Int : 432 ms Sinus bradycardia with 1st degree A-V block Left axis deviation Abnormal ECG When compared with ECG of 01-MAY-2020 11:31, MANUAL COMPARISON REQUIRED, DATA IS UNCONFIRMED Confirmed by MEREDITH NGUYỄN, EMPERATRIZ ([id number]), purchasing expeditor DANNI LOOMIS ([id number]) on 05/05/2020 2:13:48 PM Referred By: ERVIN Confirmed By:MARTA HARPER MD
--- NOTE | 2020-05-01 12:22 | RAD_ITS ---
STUDY: X-RAY CHEST REASON FOR EXAM: Male, 79 years old. Palpitations intermittent for 2 days TECHNIQUE: Single AP portable view of the chest. COMPARISON: Comparison is made with prior study dated 12/24/2019. FINDINGS: EKG electrodes are seen. The lungs are clear and expanded. There is no demonstrated pleural abnormality. Normal size heart. Normal mediastinum and rico. Normal visualized pulmonary arteries. Normal visualized aortic arch and descending thoracic aorta. There are diffuse degenerative changes of the visualized thoracic spine. Normal visualized ribs, clavicles, and shoulders. There is no demonstrated abnormality of the visualized soft tissue structures of the upper abdomen. RAD/Chest 1 View (Portable) IMPRESSION: Unremarkable examination. Electronically Signed: Gian Cordero, at 12:42 EDT , Service support ,
[2020-05-01 12:29] LABS: Absolute Lymphocyte Count 0.81 X10^3/uL (0.83-4.51); Absolute Neutrophil Count 8.9 X10^3/uL (2.0-7.7); Basophil# 0.05 X10^3/uL; Basophil% 0.5 % (0-1); Eosinophil# 0.03 X10^3/uL; Eosinophils% 0.3 % (0-5); Hematocrit 41.8 % (40-54); Hemoglobin 14.2 g/dL (13.0-16.5); Lymphocyte # 0.81 X10^3/ul (4.0); Lymphocyte % 7.7 % (19-41); Mean Corpuscular Hgb 31.2 pg (27.0-32.0); Mean Corpuscular Volume 91.9 fL (80-94); Mean Platelet Vol. 9.4 fl (6.2-12.0); Monocyte# 0.78 X10^3/uL; Monocyte% 7.4 % (0-10); NRBC Flagged by Analyzer 0 % (0-5); Neutrophil # 8.87 X10^3/uL (2.7-7.7); Neutrophil % 83.7 % (47-70); Platelet Count 338 K/mm3 (150-450); RBC Distribution Width CV 12.2 % (11.6-14.6); RBC Distribution Width SD 40.9 fl (35.1-43.9); Red Blood Count 4.55 M/mm3 (4.6-6.2); White Blood Count 10.6 K/mm3 (4.4-11.0)
[2020-05-01 12:36] LABS: Partial Thromboplast Time 30.7 Seconds (24.1-36.2); Prothrombin Time (Protime)PT. 13.1 SECONDS (11.7-14.9)
[2020-05-01 12:47] LABS: ALB/GLOB Ratio 1.2 RATIO (0.9-2.4); AST(SGOT) 19 U/L (15-37); Alanine Aminotransfer ALT/SGPT 45 U/L (16-61); Albumin, Serum 4.2 g/dL (3.2-5.0); Alkaline Phosphatase 70 U/L (45-117); Anion Gap 4 (5-15); BUN 16 mg/dL (7-18); BUN/Creat Ratio 16.1 RATIO (10-20); Calcium,Total 9.4 mg/dL (8.5-10.1); Chloride 102 mmol/L (98-107); Creatinine, Serum 0.99 mg/dL (0.70-1.30); EST Glomerular Filtration Rate 77 mL/min (>60); Est Glom Filt Rate - Afr Amer 93 mL/min (>60); Estimated Creatinine Clearance 57.58 ml/min; Globulin 3.6 g/dL (2.2-4.2); Glucose 203 mg/dL (74-106); Potassium 3.9 mmol/L (3.5-5.1); Protein, Total 7.8 g/dL (6.4-8.2); Sodium Level 134 mmol/L (136-145)
[2020-05-01 13:38] LABS: Bacteria 0 SEEN /hpf (None Seen); Mucous, Urine 0 SEEN /hpf (<or=2+); Red Blood Cells-Urine 0 SEEN /hpf (0-5); Squamous Epithelial Cells - UA 0 SEEN /hpf (0-5); White Blood Cells 0 SEEN /hpf (0-5)
[2020-05-01 13:41] LABS: Color, Urine Yellow (Yellow); Glucose, Dipstick Normal (Normal); Ketone-Dipstick Negative (Negative); Leukocyte Esterase-Dipstick Negative /ul (Negative); Nitrite-Dipstick Negative (Negative); Occult Blood-Urine 10 /ul (Negative); Protein-Dipstick Negative (Negative); Urine Bilirubin Dipstick Negative (Negative); Urine Clarity Clear (Clear); Urine Urobilinogen Normal (Normal)
--- NOTE | 2020-05-01 14:29 | NURSING ---
PCU OBS WHITE PALPITATIONS
--- NOTE | 2020-05-01 15:00 | HP.PCM_ITS ---
Problem List (1) Chest pain Status: Acute (2) Palpitations Status: Acute (3) Atherosclerosis of coronary artery without angina pectoris Status: Chronic Qualifiers: Coronary Disease-Associated Artery/Lesion type: unspecified vessel or lesion type [place] vs. transplanted heart: unspecified whether [place] or transplanted heart Qualified Code(s): I25.10 - Atherosclerotic heart disease of [place] coronary artery without angina pectoris Comment: Successful PTCA/GORDO distal LCX with a 2.25 x 24 Promus Synergy 12/25/2019 (4) BPH (benign prostatic hyperplasia) Status: Chronic Qualifiers: Lower urinary tract symptom presence: unspecified whether lower urinary tract symptoms present Qualified Code(s): N40.0 - Benign prostatic hyperplasia without lower urinary tract symptoms (5) Hyperlipemia Status: Chronic Qualifiers: Hyperlipidemia type: unspecified Qualified Code(s): E78.5 - Hyperlipidemia, unspecified (6) Hypertension Status: Chronic Qualifiers: Hypertension type: essential hypertension Qualified Code(s): I10 - Essential (primary) hypertension History of Present Illness Date of Admission: 05/01/20 Chief Complaint: Palpitations, racing heart The patient is a 79 y/o M w/ PMHx: Hx rheumatic fever in his youth, CAD s/p 12/25/19 PCI GORDO distal LCx, HTN, HLD, BPH, Former Tobacco use who presents to the [facility] ED on 05/01/20 with history of ~ 48 hours of initially intermittent, now constant since awakening at ~ 6:30 ongoing racing heart sensation/palpitations with rare occasional midsternal, non-radiating, zing like electrical shock lasting seconds only, rated minimal 1-2/10 when occurred (only twice on day of presentation), worse with deep inspiratory effort with no specific onset dyspnea, diaphoresis, nausea or emesis but not resolving prompting ED pre sentation. Patient denied any recent fever, chills, nausea, emesis, abdominal pain, diarrhea, arthralgia or myalgias, cough, alteration to sense of taste or smell, rhinorrhea or congestion or any headaches. Work-up in the ED included T 97.4, heart rate 58, BP 136/64, respiratory rate 16, 98% on room air, CBC with WBC 10.6, hemoglobin 14.2, platelet 338 with left shift with concurrent noted lymphopenia, unremarkable coags, CMP with sodium 134, glucose 2 3 otherwise unremarkable, troponin is 0.05, EKG was sinus rhythm with no acute evidence of ischemia, urinalysis unremarkable, chest x-ray with no acute cardiopulmonary findings. Past Medical History Past Medical History (Chronic Problems): Chronic Problems (Last Updated 12/25/19 @ 13:56 by Veronica Zimmerman) Atherosclerosis of coronary artery without angina pectoris (Chronic) Successful PTCA/GORDO distal LCX with a 2.25 x 24 Promus Synergy 12/25/2019 Stented coronary artery (Chronic 12/25/19) Successful PTCA/GORDO distal LCX with a 2.25 x 24 Promus Synergy 12/25/2019 BPH (benign prostatic hyperplasia) (Chronic) Hyperlipemia (Chronic) Hypertension (Chronic) Medical History: Medical History (Last Updated 12/25/19 @ 13:56 by Veronica Zimmerman) Atherosclerosis of coronary artery without angina pectoris (Chronic) I25.10 Successful PTCA/GORDO distal LCX with a 2.25 x 24 Promus Synergy 12/25/2019 Allergies No Known Allergies Allergy (Verified 05/01/20 11:17) Home Medications: Ambulatory Orders Medication Instructions Recorded Finasteride [Proscar] 5 mg PO DAILY 12/16/14 atorvastatin 40 mg tablet 40 mg PO QHS #90 tab 12/26/19 isosorbide mononitrate 30 mg 30 mg PO DAILY #30 tab 12/26/19 tablet,extended release 24 hr losartan 100 mg tablet 100 mg PO DAILY #90 tab 12/26/19 metoprolol tartrate 50 mg tablet 50 mg PO BID #180 tab 12/26/19 Aspirin E.C. [Ecotrin] 81 mg PO QODAY 05/01/20 Cholecalciferol (Vitamin D3) 5,000 unit PO DAILY 05/01/20 [Vitamin D3] Clopidogrel Bisulfate [Clopidogrel] 75 mg PO QODAY 05/01/20 Surgical History: Surgical History (Last Updated 12/25/19 @ 13:56 by Veronica Zimmerman) Stented coronary artery (Chronic) Onset Date: 12/25/19 Z95.5 Successful PTCA/GORDO distal LCX with a 2.25 x 24 Promus Synergy 12/25/2019 Surgical History: tonsillectomy, - - Left arm surgery secondary to laceration, tonsillectomy, cataract surgery. Psychiatric History: No pertinent psych hx Lives: Spouse/ Significant Other Smoking Status: Former smoker - Patient quit cigarette tobacco usage in 1981 with prior to this approximately 1 pack/day cigarette tobacco use and he had been a teenager. Tobacco Use: Non-smoker Alcohol: None Drugs: None - *Family History Maternal History Items: Hypertension, - - Mother with history of dementia. Paternal History Items: Heart Disease Review of Systems Constitutional: Reports: Weakness, Fatigue. Denies: Anorexia, Chills, Fever, Malaise, Weight Change HEENT: Denies: Head Aches, Nasal Congestion, Sinus Congestion, Sinus Drainage, Visual Changes Cardiovascular: Reports: Chest Pain. Denies: Chest Pressure, Chest Tightness, Edema, Heaviness, Light Headedness, Orthopnea, Palpitations, Syncope Respiratory: Denies: Cough, Shortness of Breath, Shortness of breath at rest, Shortness of breath upon exertion, Sputum production Gastrointestinal: Denies: Abdominal Pain, Diarrhea, Nausea, Vomiting Genitourinary: Denies: Dysuria Musculoskeletal: Denies: Joint Pain, Joint Tenderness, Muscle pain Skin: Reports: Skin Changes. Denies: Rash, Wounds Neurological: Denies: Numbness, Tingling, Focal weakness Psychiatric: Denies: Anxiety, Depression, Homicidal Ideations, Suicidal Ideations Hematologic/ Lymphatic: Reports: Easy Bruising, Easy Bleeding VTE Information - Inpt Only VTE Present on Admission: No VTE Mechan Device Prophylaxis: SCD's VTE Pharm Prophylaxis ordered?: Yes Patient Problems: Active and Suspected Problems (Last Updated 12/25/19 @ 13:56 by Veronica Zimmerman) Palpitations (Acute) Subjective: Patient seated upright in the ED bed, no acute distress, denies any current chest discomfort, sensation of racing heart and palpitations have resolved. Objective: Physical Examination: General: awake, alert, oriented x 3 and cooperative, seated upright in the ED bed in no apparent distress, no chest discomfort nor any palpitations/racing heart sensation. Skin: normal color, turgor, no icterus, cyanosis. HEENT: AT/NC, EOMI, PERRLA, MMM, no carotid bruits or JVD noted. Lungs: CTA bilaterally, moderate effort, moderate decrease BL bases, no rales, ronchi or wheezing. Heart: Currently mildly bradycardic with regular rhythm; no gallop, rub audible. Abdomen: soft, NTTP, ND, normal BS, no HSM. Extremities: no cyanosis, clubbing, or edema. Neurological: patient awake, alert, oriented x 3; cognitive function intact; pupils equally reactive to light and accomodation; cranial nerves II-XII grossly normal, moving all 4 extremities, no focal deficits, strength preserved. Psychiatric: affect appears normal, no acute evidence of depressive or anxiety feelings. - Physical Exam Vitals/I&O's: Vital Signs Temp Pulse Resp BP Pulse Ox 97.4 F L 58 L 18 116/53 L 100 05/01/20 11:15 05/01/20 14:23 05/01/20 14:23 05/01/20 14:23 05/01/20 14:23 Oxygen Delivery Method Room Air Weight: 173 lb 11.588 oz Body Mass Index (BMI) 26.4 Laboratory Results 05/01/20 11:30: WBC 10.6, RBC 4.55 L, Hgb 14.2, Hct 41.8, MCV 91.9, MCH 31.2, MCHC 34.0, RDW Std Deviation 40.9, RDW Coeff of Yoan 12.2, Plt Count 338, MPV 9.4, Immature Gran % (Auto) 0.400, Neut % (Auto) 83.7 H, Lymph % (Auto) 7.7 L, [place] % (Auto) 7.4, Eos % (Auto) 0.3, Baso % (Auto) 0.5, Absolute Neuts (auto) 8.9 H, Absolute Lymphs (auto) 0.81 L, Nucleated RBC % 0 05/01/20 11:30: PT 13.1, INR 1.0, APTT 30.7 05/01/20 11:30: Sodium 134 L, Potassium 3.9, Chloride 102, Carbon Dioxide 28.0, Anion Gap 4 L, BUN 16, Creatinine 0.99, Estim Creat Clear Calc 57.58, Est GFR (MDRD) Af Amer 93, Est GFR (MDRD) Non-Af 77, BUN/Creatinine Ratio 16.1, Glucose 203 H, Calcium 9.4, Total Bilirubin 0.70, AST 19, ALT 45, Alkaline Phosphatase 70, Troponin I 0.015, Total Protein 7.8, Albumin 4.2, Globulin 3.6, Albumin/Globulin Ratio 1.2 05/01/20 13:15: Urine Color Yellow, Urine Clarity Clear, Urine pH 7.0, Ur Specific [place] 1.010, Urine Protein Negative, Urine Glucose (UA) Normal, Urine Ketones Negative, Urine Occult Blood 10 H, Urine Nitrite Negative, Urine Bilirubin Negative, Urine Urobilinogen Normal, Ur Leukocyte Esterase Negative, Urine RBC 0 SEEN, Urine WBC 0 SEEN, Ur Squamous Epith Cells 0 SEEN, Urine Bacteria 0 SEEN, Urine Mucus 0 SEEN Assessment/Plan All Active Problems (Last Updated 12/25/19 @ 13:56 by Veronica Zimmerman) Elevated troponin (Acute) Palpitations (Acute) Accelerated hypertension (Acute) Hypokalemia (Acute) Chest pain (Acute) The patient is a 79 y/o M w/ PMHx: Hx rheumatic fever in his youth, CAD s/p 12/25/19 PCI GORDO distal LCx, HTN, HLD, BPH, Former Tobacco use who presents to the [facility] ED on 05/01/20 with history of ~ 48 hours of initially intermittent, now constant since awakening at ~ 6:30 ongoing racing heart sensation/palpitations with rare occasional midsternal, non-radiating, zing like electrical shock lasting seconds only, rated minimal 1-2/10 when occurred (only twice on day of presentation). 1. Chest Pain with palpitations/racing heart sensation: EKG in ED sinus rhythm with no acute evidence of ischemia, CXR w/ no acute cardiopulmonary findings, initial trop normal x1. Will admit to PCU, place on a monitored bed to assure no acute myocardial infarction with serial cardiac enzymes and EKGs, will continue to monitor for etiology for sensation of racing heart/palpitations which is his primary complaint, if no arrhythmia then may consider stress testing but will defer immediate order at this time as atypical discomfort complaint and primary presentation reason was for significant arrhythmia sensation. Magnesium and TSH requested. ASA, NG, morphine. 2. Hyperglycemia: Admission glucose 203, hemoglobin A1c requested, if notable transition to insulin sliding scale with ADA diet with nutrition consultation. 3. CAD: s/p NSTEMI 12/21/19 with 12/25/19 PCI GORDO distal LCx, continue home regimen asa, plavix, statin, BB. 4. Chronic hyponatremia, mild: Admission sodium 134, baseline 131-135, trend. 5. Hypertension: Continue home regimen including isosorbide, losartan, metoprolol with hold parameters, PRN hydralazine. 6. Hyperlipidemia: Continue home statin regimen. 7. BPH: We will continue patient home Proscar regimen. 8. Former tobacco usage: Encouraged continued tobacco cessation. 9. DVT prophylaxis: SCDs, Lovenox. 10. CODE status: Patient SARAH is his and living will is currently in place. Discussed CODE status at length including difference between FULL code, DNR-CCA and DNR-CC status. Following discussions about the differences in these status, requested full CODE STATUS. Advanced Care Planning Face to Face Time: 16 minutes. OBSV E&M: 98115 Initial observation care L3 Procedures: [id number] Advncd Care Plan 30 Min
[2020-05-01 16:47] LABS: Magnesium 2.1 mg/dL (1.6-2.6); T4 Free Direct 0.76 ng/dL (0.76-1.46); Thyroid Stim Hormone (TSH) 1.38 uIU/mL (0.358-3.74)
[2020-05-01 16:53] LABS: Hemoglobin A1c 6.3 % (3.8-5.6)
[2020-05-01] MEDS: Atorvastatin Calcium 40 MG Tablet PO (20:26)
[2020-05-01] MEDS: Metoprolol Tartrate 50 MG Tablet PO (20:26)
[2020-05-01] MEDS: Losartan Potassium 100 MG Tablet PO (20:27)
[2020-05-02 02:30] VITALS: BP 142/49; PULSE 59; RESP 12; TEMP 36.6; O2SAT 98
[2020-05-02 02:59] VITALS: PULSE 59
--- NOTE | 2020-05-02 05:55 | EKG12_ITS ---
Test Reason : PALPS Blood Pressure : / mmHG Vent. Rate : 064 BPM Atrial Rate : 064 BPM P-R Int : 196 ms QRS Dur : 086 ms QT Int : 396 ms P-R-T Axes : 073 -27 046 degrees QTc Int : 408 ms Normal sinus rhythm Moderate voltage criteria for LVH, may be normal variant Nonspecific ST abnormality Abnormal ECG Confirmed by KATHLEEN NGUYỄN, KARINA ([id number]), newspaper editor managing MILTON MAYEN ([id number]) on 05/06/2020 8:53:44 AM Referred By: JOHN Confirmed By:KARINA WANG MD
[2020-05-02 06:50] LABS: Absolute Lymphocyte Count 2.08 X10^3/uL (0.83-4.51); Absolute Neutrophil Count 5.2 X10^3/uL (2.0-7.7); Basophil# 0.06 X10^3/uL; Basophil% 0.7 % (0-1); Eosinophil# 0.18 X10^3/uL; Eosinophils% 2.2 % (0-5); Hematocrit 40.8 % (40-54); Hemoglobin 13.6 g/dL (13.0-16.5); Lymphocyte # 2.08 X10^3/ul (4.0); Lymphocyte % 25.1 % (19-41); Mean Corp Hgb Conc 33.3 g/dL (32-36); Mean Corpuscular Hgb 31.1 pg (27.0-32.0); Mean Corpuscular Volume 93.4 fL (80-94); Mean Platelet Vol. 9.2 fl (6.2-12.0); Monocyte# 0.79 X10^3/uL; Monocyte% 9.5 % (0-10); NRBC Flagged by Analyzer 0 % (0-5); Neutrophil # 5.15 X10^3/uL (2.7-7.7); Neutrophil % 62.3 % (47-70); Platelet Count 262 K/mm3 (150-450); RBC Distribution Width CV 12.3 % (11.6-14.6); RBC Distribution Width SD 42.6 fl (35.1-43.9); Red Blood Count 4.37 M/mm3 (4.6-6.2); White Blood Count 8.3 K/mm3 (4.4-11.0)
[2020-05-02 07:00] VITALS: PULSE 58
[2020-05-02 07:15] LABS: ALB/GLOB Ratio 1.1 RATIO (0.9-2.4); AST(SGOT) 21 U/L (15-37); Alanine Aminotransfer ALT/SGPT 38 U/L (16-61); Albumin, Serum 3.7 g/dL (3.2-5.0); Alkaline Phosphatase 65 U/L (45-117); Anion Gap 3 (5-15); BUN 16 mg/dL (7-18); BUN/Creat Ratio 20.2 RATIO (10-20); Calcium,Total 8.9 mg/dL (8.5-10.1); Chloride 102 mmol/L (98-107); Creatinine, Serum 0.79 mg/dL (0.70-1.30); EST Glomerular Filtration Rate 100 mL/min (>60); Est Glom Filt Rate - Afr Amer 120 mL/min (>60); Globulin 3.3 g/dL (2.2-4.2); Glucose 109 mg/dL (74-106); Potassium 4.2 mmol/L (3.5-5.1); Sodium Level 132 mmol/L (136-145)
[2020-05-02 07:45] VITALS: O2SAT 98
[2020-05-02 07:55] VITALS: BP 149/56; PULSE 57; RESP 16; TEMP 36.6; O2SAT 99
[2020-05-02 09:37] VITALS: PULSE 66
[2020-05-02] MEDS: Finasteride 5 MG Tablet PO (09:37)
[2020-05-02] MEDS: Isosorbide Mononitrate 30 MG Tablet PO (09:37)
[2020-05-02] MEDS: Clopidogrel Bisulfate 75 MG Tablet PO (09:37)
[2020-05-02] MEDS: Metoprolol Tartrate 50 MG Tablet PO (09:37)
[2020-05-02] MEDS: Aspirin E.C. 81 MG Tablet PO (09:38)
[2020-05-02] MEDS: Enoxaparin 40 MG/0.4 ML Syringe SC (09:38)
--- NOTE | 2020-05-02 09:40 | DCINST_ITS ---
- Discharge Diagnoses Current Active Problems: Current Active and Chronic Problems (Last Updated 12/25/19 @ 13:56 by Veronica Zimmerman) Palpitations (Acute) You will use the following diet at home:: Cardiac Your food should be the consistency of: Regular Your liquids should be the consistency of: Regular/Thin Discharge Activity: Return to Normal Activity Call your doctor if you observe: Fever of 101 or Higher, Shortness of breath, Dizziness, Fainting spells, Swelling in the ankles, Chest pain, Increased palpitations (irregular heartbeat) Allergies/Adverse Reactions: Allergies No Known Allergies Allergy (Verified 05/01/20 11:17) Medications to take at Discharge Finasteride [Proscar] 5 mg PO DAILY 12/16/14 atorvastatin 40 mg tablet 40 mg PO QHS #90 tab 12/26/19 isosorbide mononitrate 30 mg tablet,extended release 24 hr 30 mg PO DAILY #30 tab 12/26/19 losartan 100 mg tablet 100 mg PO DAILY #90 tab 12/26/19 metoprolol tartrate 50 mg tablet 50 mg PO BID #180 tab 12/26/19 Cholecalciferol (Vitamin D3) [Vitamin D3] 5,000 unit PO DAILY 05/01/20 Aspirin E.C. [Ecotrin] 81 mg PO DAILY #0 05/02/20 Clopidogrel Bisulfate [Clopidogrel] 75 mg PO DAILY #0 05/02/20 Primary Care Physician: Evelio Villalba MD [Primary Care Provider] - Please follow up with your Primary Care Physician in: 3-5 days Test Results: Test results from this visit will be discussed in further detail at your follow- up appointment, if applicable. Please Follow Up With: Cardiology When: Normal Follow-up
--- NOTE | 2020-05-02 10:04 | PHA.DC.MR ---
Pharmacy Service has performed discharge medication reconciliation for this patient. The patient's discharge medication list was reviewed for discrepancies and discrepancies were resolved. Home Medications Finasteride [Proscar] 5 mg PO DAILY 12/16/14 atorvastatin 40 mg tablet 40 mg PO QHS #90 tab 12/26/19 isosorbide mononitrate 30 mg tablet,extended release 24 hr 30 mg PO DAILY #30 tab 12/26/19 losartan 100 mg tablet 100 mg PO DAILY #90 tab 12/26/19 metoprolol tartrate 50 mg tablet 50 mg PO BID #180 tab 12/26/19 Cholecalciferol (Vitamin D3) [Vitamin D3] 5,000 unit PO DAILY 05/01/20 Aspirin E.C. [Ecotrin] 81 mg PO DAILY #0 05/02/20 Clopidogrel Bisulfate [Clopidogrel] 75 mg PO DAILY #0 05/02/20
--- NOTE | 2020-05-02 11:53 | DS.PCM_ITS ---
Discharge Date and Diagnosis Date of Admission: 05/01/20 Date of Discharge: 05/02/20 - Secondary Discharge Diagnosis Chronic Problems: Chronic Problems (Last Updated 12/25/19 @ 13:56 by Veronica Zimmerman) Atherosclerosis of coronary artery without angina pectoris (Chronic) Successful PTCA/GORDO distal LCX with a 2.25 x 24 Promus Synergy 12/25/2019 Stented coronary artery (Chronic 12/25/19) Successful PTCA/GORDO distal LCX with a 2.25 x 24 Promus Synergy 12/25/2019 BPH (benign prostatic hyperplasia) (Chronic) Hyperlipemia (Chronic) Hypertension (Chronic) Hospital Course and Treatment Imaging Results: None Consults: None Operations: None Procedures: None Summary of Care Provided: Per HPI: The patient is a 79 y/o M w/ PMHx: Hx rheumatic fever in his youth, CAD s/p 12/25/19 PCI GORDO distal LCx, HTN, HLD, BPH, Former Tobacco use who presents to the [facility] ED on 05/01/20 with history of ~ 48 hours of initially intermittent, now constant since awakening at ~ 6:30 ongoing racing heart sensation/palpitations with rare occasional midsternal, non-radiating, zing like electrical shock lasting seconds only, rated minimal 1-2/10 when occurred (only twice on day of presentation), worse with deep inspiratory effort with no specific onset dyspnea, diaphoresis, nausea or emesis but not resolving prompting ED presentation. Patient denied any recent fever, chills, nausea, emesis, abdominal pain, diarrhea, arthralgia or myalgias, cough, alteration to sense of taste or smell, rhinorrhea or congestion or any headaches. Work-up in the ED included T 97.4, heart rate 58, BP 136/64, respiratory rate 16, 98% on room air, CBC with WBC 10.6, hemoglobin 14.2, platelet 338 with left shift with concurrent noted lymphopenia, unremarkable coags, CMP with sodium 134, glucose 2 3 otherwise unremarkable, troponin is 0.05, EKG was sinus rhythm with no acute evidence of ischemia, urinalysis unremarkable, chest x-ray with no acute cardiopulmonary findings. Hospital Course: 1. Chest pain with palpitation/CAD status post non-STEMI and stents/HTN/HLD- 79-year-old male who recently underwent a heart cath in December with stent placement presents with 2 episodes of palpitations after working on his car with his son. He also had one episode of slight chest pain. He states that he feels great now he has not had any arrhythmia on telemetry and does not have any chest pain. EKG is unremarkable and unchanged from December and his troponins were also normal. I discussed with him that he should really be taking his aspirin and his Plavix daily instead of every other day which she agrees to. He had a stress test ordered this morning however unfortunately prior to the stress test being ordered he had eaten, I discussed with him the possibility of staying overnight and having a stress test done on Tuesday however he refused. 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 No changes were made to his medication other than the recommendation of taking his aspirin and Plavix daily. 2. Hyperglycemia-when he presented his blood sugar was 203, his A1c is 6.3 and given at his age that snacking to be addressed during this hospitalization he can follow-up with his PCP as an outpatient. - Physical Exam Vitals/I&O's: Vital Signs Temp Pulse Resp BP Pulse Ox 97.9 F 66 16 149/56 H 99 05/02/20 07:55 05/02/20 09:37 05/02/20 07:55 05/02/20 07:55 05/02/20 07:55 Oxygen Delivery Method Room Air Weight: 174 lb 1.585 oz Body Mass Index (BMI) 26.4 Intake and Output for Last 24 Hours 04/30/20 05/01/20 05/02/20 23:59 23:59 23:59 Intake Total 500 / 500 200 / 200 Balance 500 / 500 200 / 200 General: Alert, Oriented x3, Cooperative, No apparent distress HEENT: Atraumatic, PERRLA, EOMI, Normocephalic Oral: Moist Mucosa Neck: Supple, No JVD Lungs: Clear to auscultation, Normal air movement, No rhonchi, No wheeze, No rales Cardiovascular: Regular rate, Regular Rhythm, Normal S1, Normal S2, No murmurs Abdomen: Soft, Non Tender, Non-Distended, No Hepato-splenomegaly Extremities: No edema, Capillary Refill Less than 3 Seconds Skin: No rashes, No breakdown Neurological: Neuro grossly intact, Sensory exam intact to light touch and pain Psych/Mental Status: Normal Affect, Appropriate Laboratory Results 05/01/20 11:30: WBC 10.6, RBC 4.55 L, Hgb 14.2, Hct 41.8, MCV 91.9, MCH 31.2, MCHC 34.0, RDW Std Deviation 40.9, RDW Coeff of [place] 12.2, Plt Count 338, MPV 9.4, Immature Gran % (Auto) 0.400, Neut % (Auto) 83.7 H, Lymph % (Auto) 7.7 L, [place] % (Auto) 7.4, Eos % (Auto) 0.3, Baso % (Auto) 0.5, Absolute Neuts (auto) 8.9 H, Absolute Lymphs (auto) 0.81 L, Nucleated RBC % 0 05/01/20 11:30: PT 13.1, INR 1.0, APTT 30.7 05/01/20 11:30: Sodium 134 L, Potassium 3.9, Chloride 102, Carbon Dioxide 28.0, Anion Gap 4 L, BUN 16, Creatinine 0.99, Estim Creat Clear Calc 57.58, Est GFR (MDRD) Af Amer 93, Est GFR (MDRD) Non-Af 77, BUN/Creatinine Ratio 16.1, Glucose 203 H, Calcium 9.4, Total Bilirubin 0.70, AST 19, ALT 45, Alkaline Phosphatase 70, Troponin I 0.015, Total Protein 7.8, Albumin 4.2, Globulin 3.6, Albumin/Globulin Ratio 1.2 05/01/20 11:30: Hemoglobin A1c 6.3 H 05/01/20 11:30: Magnesium 2.1, TSH 1.38, Free T4 0.76 05/01/20 13:15: Urine Color Yellow, Urine Clarity Clear, Urine pH 7.0, Ur Specific [place] 1.010, Urine Protein Negative, Urine Glucose (UA) Normal, Urine Ketones Negative, Urine Occult Blood 10 H, Urine Nitrite Negative, Urine Bilirubin Negative, Urine Urobilinogen Normal, Ur Leukocyte Esterase Negative, Urine RBC 0 SEEN, Urine WBC 0 SEEN, Ur Squamous Epith Cells 0 SEEN, Urine Bacteria 0 SEEN, Urine Mucus 0 SEEN 05/01/20 16:38: Troponin I Cancelled 05/01/20 16:59: Troponin I < 0.015 05/01/20 20:41: Troponin I < 0.015 05/02/20 06:20: WBC 8.3, RBC 4.37 L, Hgb 13.6, Hct 40.8, MCV 93.4, MCH 31.1, MCHC 33.3, RDW Std Deviation 42.6, RDW Coeff of [place] 12.3, Plt Count 262, MPV 9.2, Immature Gran % (Auto) 0.200, Neut % (Auto) 62.3, Lymph % (Auto) 25.1, [place] % (Auto) 9.5, Eos % (Auto) 2.2, Baso % (Auto) 0.7, Absolute Neuts (auto) 5.2, Absolute Lymphs (auto) 2.08, Nucleated RBC % 0 05/02/20 06:20: Sodium 132 L, Potassium 4.2, Chloride 102, Carbon Dioxide 27.0, Anion Gap 3 L, BUN 16, Creatinine 0.79, Estim Creat Clear Calc 57.00, Est GFR (MDRD) Af Amer 120, Est GFR (MDRD) Non-Af 100, BUN/Creatinine Ratio 20.2 H, Glucose 109 H, Calcium 8.9, Total Bilirubin 1.40 H, AST 21, ALT 38, Alkaline Phosphatase 65, Total Protein 7.0, Albumin 3.7, Globulin 3.3, Albumin/Globulin Ratio 1.1 Discharge Activity: Return to Normal Activity Call your doctor if you observe: Fever of 101 or Higher, Shortness of breath, Dizziness, Fainting spells, Swelling in the ankles, Chest pain, Increased palpitations (irregular heartbeat) Home Medications: Medications to take at Discharge Finasteride [Proscar] 5 mg PO DAILY 12/16/14 atorvastatin 40 mg tablet 40 mg PO QHS #90 tab 12/26/19 isosorbide mononitrate 30 mg tablet,extended release 24 hr 30 mg PO DAILY #30 tab 12/26/19 losartan 100 mg tablet 100 mg PO DAILY #90 tab 12/26/19 metoprolol tartrate 50 mg tablet 50 mg PO BID #180 tab 12/26/19 Cholecalciferol (Vitamin D3) [Vitamin D3] 5,000 unit PO DAILY 05/01/20 Aspirin E.C. [Ecotrin] 81 mg PO DAILY #0 05/02/20 Clopidogrel Bisulfate [Clopidogrel] 75 mg PO DAILY #0 05/02/20 Primary Care Physician: vEelio Villalba MD [Primary Care Provider] - Please follow up with your Primary Care Physician in: 3-5 days Please Follow Up With: Cardiology When: Normal Follow-up Disposition: Home Minutes spent on discharge:: 35 Patient Condition:: Stable Medical Necessity - Tobacco Use Smoking Status: Former smoker - Patient quit cigarette tobacco usage in 1981 with prior to this approximately 1 pack/day cigarette tobacco use and he had been a teenager. Tobacco Use: Non-smoker Meaningful Use Info Meaningful Use Diagnoses (Choose all that apply): None applicable OBSV E&M: 06346 Observation care discharge
== END 2020-05-02 09:40 | disposition home or self-care (01) ==
LOC: ED 13:02 → PCU 15:42
PROVIDERS: Admitting Provider Family Medicine; Emergency Provider Emergency Medicine; PCP Family Medicine; Visit Provider Family Medicine
DX: R07.89 Other chest pain (principal); R00.2 Palpitations; I25.10 Atherosclerotic heart disease of native coronary artery without angina pectoris; I25.2 Old myocardial infarction; E87.1 Hypo-osmolality and hyponatremia; I10 Essential (primary) hypertension; N40.0 Benign prostatic hyperplasia without lower urinary tract symptoms; E78.5 Hyperlipidemia, unspecified; R73.9 Hyperglycemia, unspecified; Z79.899 Other long term (current) drug therapy; Z79.02 Long term (current) use of antithrombotics/antiplatelets; Z79.82 Long term (current) use of aspirin; Z87.891 Personal history of nicotine dependence
CPT/HCPCS: 36415; 71045; 80053; 81001; 83036; 83735; 84439; 84443; 84484; 85025; 85610; 85730; 93005; 96372; 99218; 99283; A4216; G0378

== ENCOUNTER → 2020-11-26 15:00 | Outpatient (CLI) | payer MEDICARE, SELFPAY ==
[2020-05-01 15:16] VITALS: BMI 26.4
[2020-11-26 18:44] LABS: Anion Gap 8 (5-15); BUN 15 mg/dL (7-18); BUN/Creat Ratio 17.5 RATIO (10-20); Calcium,Total 9.2 mg/dL (8.5-10.1); Chloride 99 mmol/L (98-107); Cholesterol 113 mg/dL (200); Creatinine, Serum 0.86 mg/dL (0.70-1.30); EST Glomerular Filtration Rate 91 mL/min (>60); Est Glom Filt Rate - Afr Amer 110 mL/min (>60); Glucose 106 mg/dL (74-106); High Density Lipoprotein 47 mg/dL; Potassium 4.4 mmol/L (3.5-5.1); Sodium Level 133 mmol/L (136-145); Triglycerides 84 mg/dL; Very Low Density Lipoprotein 17 mg/dL (5-40)
== END ==
PROVIDERS: PCP Family Medicine; Referring Provider Family Medicine; Visit Provider Family Medicine
DX: I10 Essential (primary) hypertension (principal)
CPT/HCPCS: 36415; 80048; 80061

== ENCOUNTER 2020-12-06 06:11 | Observation (INO) | payer MEDICARE, SELFPAY ==
[2020-05-01 15:16] VITALS: BMI 26.4
[2020-12-06] VITALS (10 sets, daily range): BP systolic 133–165; BP diastolic 50–69; PULSE 63–95; RESP 14–16; TEMP 35.6–37.2; O2SAT 97–100; BMI 27.0; BMI 25.8
--- NOTE | 2020-12-06 06:18 | EKG12_ITS ---
Test Reason : PALPS Blood Pressure : / mmHG Vent. Rate : 079 BPM Atrial Rate : 079 BPM P-R Int : 214 ms QRS Dur : 092 ms QT Int : 358 ms P-R-T Axes : 071 -33 063 degrees QTc Int : 410 ms Sinus rhythm with 1st degree A-V block Left axis deviation Voltage criteria for left ventricular hypertrophy Septal CO, age undetermined, cannot be excluded Abnormal ECG Confirmed by ROE NGUYỄN, SAFIA ([id number]), commercial production editor MILTON MAYEN ([id number]) on 12/09/2020 12:33:12 PM Referred By: CLEM Confirmed By:SAFIA AU MD
[2020-12-06] MEDS: Aspirin 81 MG TAB.CHEW 324 MG PO (06:25)
[2020-12-06] MEDS: 0.9% Normal Saline 1,000 ML 1000 ML IV (06:25)
[2020-12-06 06:26] LABS: Absolute Lymphocyte Count 1.98 X10^3/uL (0.83-4.51); Absolute Neutrophil Count 6.6 X10^3/uL (2.0-7.7); Basophil# 0.05 X10^3/uL; Basophil% 0.5 % (0-1); Eosinophil# 0.13 X10^3/uL; Eosinophils% 1.3 % (0-5); Hematocrit 43.3 % (40-54); Hemoglobin 15.2 g/dL (13.0-16.5); Lymphocyte # 1.98 X10^3/ul (4.0); Lymphocyte % 20.5 % (19-41); Mean Corp Hgb Conc 35.1 g/dL (32-36); Mean Corpuscular Hgb 31.7 pg (27.0-32.0); Mean Corpuscular Volume 90.2 fL (80-94); Mean Platelet Vol. 9.3 fl (6.2-12.0); Monocyte# 0.92 X10^3/uL; Monocyte% 9.5 % (0-10); NRBC Flagged by Analyzer 0 % (0-5); Neutrophil # 6.55 X10^3/uL (2.7-7.7); Neutrophil % 67.8 % (47-70); Platelet Count 342 K/mm3 (150-450); RBC Distribution Width CV 11.9 % (11.6-14.6); RBC Distribution Width SD 39.5 fl (35.1-43.9); White Blood Count 9.7 K/mm3 (4.4-11.0)
--- NOTE | 2020-12-06 06:28 | ED.DCSUM_ITS ---
History of Present Illness Chief Complaint: Palpitations Informant: Patient Onset: Today Activity at onset: Rest Narrative: patient is an 80-year-old male with history of coronary artery disease status post PCI with GORDO to the distal left circumflex 1 year ago as well as hypertension, hyperlipidemia and tobacco abuse in the past presenting with palpitations. Patient states she has been feeling off for the past day or 2 and since 1 AM he felt like his heart was racing. He could not really sleep because of his discomfort. He did not check his heart rate or blood pressure at that time. When he finally started moving around around 4 AM the symptoms only started to improve. For him a symptom started to worsen. He called EMS and was brought to the ER. By the time they arrived his symptoms started to remove improved. Patient states the last time he felt like this he had stents placed. He does note that over the past few days he started taking hydrochlorothiazide in addition to HCTZ. He is not sure if that the cause of his presentation symptoms. He denies any swelling of his extremities, chest pain or difficulty breathing. Denies any fever or chills. No other complaints at this time. He is on daily aspirin and Plavix. Prior Similar Symptoms: Yes, With Prior [place] - NSTEMI Past Medical History - Allergies and Home Meds Allergies/Adverse Reactions: Allergies No Known Allergies Allergy (Verified 05/01/20 11:17) Primary Care Physician: Evelio Villalba MD [Primary Care Provider] - Past Medical History: - - Coronary artery disease, hypertension, BPH, hyperlipidemia Surgical History: tonsillectomy, - - Left arm surgery secondary to laceration, tonsillectomy, cataract surgery. Smoking Status: Former smoker - Family History Maternal Family History: Reports: Hypertension, - - Mother with history of dementia. Paternal Family History: Reports: Heart Disease Review of Systems General: Denies: Chills, Fever, Sweats Eyes: Denies: Visual changes - bilaterally, Diplopia ENT: Denies: Rhinorrhea, Sore throat Cardiovascular: Reports: Palpitations, Heart racing. Denies: Chest pain Respiratory: Denies: Dyspnea, Cough, Dyspnea on exertion Gastrointestinal: Denies: Abdominal pain, Nausea, Vomiting, Diarrhea, Melena, Hematochezia Genitourinary: Denies: Dysuria, Hematuria, Frequency Musculoskeletal: Denies: Back pain, Extremity Pain Skin: Denies: Rash, Wounds Neurological: Reports: Weakness - Generalized. Denies: Headache, Numbness Physical Exam Vital Signs/Narrative: Vital Signs Temp Pulse Resp Pulse Ox 12/06/20 06:13 96.1 F L 78 15 97 Inital Vital Signs reviewed: Yes General: Well nourished, Well developed, No Acute Distress Head: Normocephalic, Atraumatic Eyes: Perrl, EOMI ENT: Moist mucous membranes, No rhinorrhea Neck: Supple, Nontender, No JVD Cardiovascular: Regular rate, Regular rhythm, No murmurs Respiratory: No distress, CTA bilaterally, Chest nontender Abdomen: Soft, Nontender, Nondistended, Normal bowel sounds Back: Nontender, Normal Inspection Extremities: Nontender, No edema Skin: Normal color, No rash Neurological: Alert, Oriented x3, Cranial nerves II-XII grossly intact, Normal Strength, Normal Sensation Psychological: Normal affect, Normal Mood Diagnostic/Tx/Re-eval Chest X-Ray - ED: 1 View, Read by ED Physician, Read by Radiologist Laboratory Data 12/06/20 12/06/20 06:05 06:05 WBC 9.7 RBC 4.80 Hgb 15.2 Hct 43.3 MCV 90.2 MCH 31.7 MCHC 35.1 RDW Std Deviation 39.5 RDW Coeff of Yoan 11.9 Plt Count 342 MPV 9.3 Immature Gran % (Auto) 0.400 Neut % (Auto) 67.8 Lymph % (Auto) 20.5 [place] % (Auto) 9.5 Eos % (Auto) 1.3 Baso % (Auto) 0.5 Absolute Neuts (auto) 6.6 Absolute Lymphs (auto) 1.98 Nucleated RBC % 0 Sodium 129 L Potassium 3.7 Chloride 92 L Carbon Dioxide 29.0 Anion Gap 8 BUN 15 Creatinine 0.89 Estim Creat Clear Calc 65.10 Est GFR (MDRD) Af Amer 106 Est GFR (MDRD) Non-Af 87 BUN/Creatinine Ratio 16.9 Glucose 149 H Calcium 9.6 Magnesium 2.1 Troponin I < 0.015 TSH 3.01 - Rhythm Strip Rhythm Strip: Sinus Rhythm Rate: 79 Ectopy: None - EKG Initial EKG Interpretation: Sinus Rhythm, - - Normal sinus rhythm at a rate of 79 with first-degree AV block MA interval 214 Left axis deviation Normal QRS and QTc Minimal voltage criteria for LVH T wave inversion in aVL Compared to prior EKG patient has new T wave inversion in aVL Treatment: Aspirin - Medical Decision Making Patient evaluated for sensation of palpitations and feeling his heart racing. His symptoms actually resolved upon arrival to the ER. He was hypertensive with a systolic of 190 per EMS but his blood pressure improved without intervention in the ER. Patient is given aspirin in the ER. He does have a history of coronary artery disease with stent placement within the last year. Patient does have a new T wave inversion in aVL. Given his heart score of 5, history and EKG changes I do think you benefit from admission for further cardiac evaluation. Patient agreeable with plan of care. ED Disposition - Plan for ED Patient: Referrals: Evelio Villalba MD [Primary Care Provider] -
--- NOTE | 2020-12-06 06:32 | RAD_ITS ---
STUDY: X-RAY CHEST REASON FOR EXAM: Male, 80 years old. chest pain and palpitations. TECHNIQUE: Single AP portable view of the chest. COMPARISON: 05/01/2020 FINDINGS: The lungs are clear and expanded. There is no demonstrated pleural abnormality. Normal size heart. Normal mediastinum and rico. Normal visualized pulmonary arteries. Normal visualized aortic arch and descending thoracic aorta. Normal visualized thoracic spine. Normal visualized ribs, clavicles, and shoulders. There is no demonstrated abnormality of the visualized soft tissue structures of the upper abdomen. RAD/Chest 1 View (Portable) IMPRESSION: Normal x-ray examination of the chest. Electronically Signed: Diaz Rajan MD at 6:56 EST Tel , Service support ,
[2020-12-06 06:51] LABS: Anion Gap 8 (5-15); BUN 15 mg/dL (7-18); BUN/Creat Ratio 16.9 RATIO (10-20); Calcium,Total 9.6 mg/dL (8.5-10.1); Chloride 92 mmol/L (98-107); Creatinine, Serum 0.89 mg/dL (0.70-1.30); EST Glomerular Filtration Rate 87 mL/min (>60); Est Glom Filt Rate - Afr Amer 106 mL/min (>60); Glucose 149 mg/dL (74-106); Magnesium 2.1 mg/dL (1.6-2.6); Potassium 3.7 mmol/L (3.5-5.1); Sodium Level 129 mmol/L (136-145); Thyroid Stim Hormone (TSH) 3.01 uIU/mL (0.358-3.74)
[2020-12-06 07:22] LABS: BNP,B-Type NATRIURETIC PEPTIDE 20.8 pg/mL (0-100)
--- NOTE | 2020-12-06 10:10 | CON.PCM_ITS ---
Reason for Consult Date of Consultation: 12/06/20 History of Present Illness: The patient is a 80 year old M [] Past Medical History Allergies/Adverse Reactions: Allergies No Known Allergies Allergy (Verified 05/01/20 11:17) Home Medications: Ambulatory Orders Medication Instructions Recorded Finasteride [Proscar] 5 mg PO DAILY 12/16/14 atorvastatin 40 mg tablet 40 mg PO QHS #90 tab 12/26/19 isosorbide mononitrate 30 mg 30 mg PO DAILY #30 tab 12/26/19 tablet,extended release 24 hr losartan 100 mg tablet 100 mg PO DAILY #90 tab 12/26/19 metoprolol tartrate 50 mg tablet 50 mg PO BID #180 tab 12/26/19 Cholecalciferol (Vitamin D3) 5,000 unit PO DAILY 05/01/20 [Vitamin D3] Aspirin E.C. [Ecotrin] 81 mg PO DAILY #0 05/02/20 Clopidogrel Bisulfate [Clopidogrel] 75 mg PO DAILY #0 05/02/20 Hydrochlorothiazide [Hctz] 25 mg PO DAILY 12/06/20 Past Medical History (Chronic Problems): Chronic Problems (Last Updated 12/25/19 @ 13:56 by Veronica Zimmerman) Atherosclerosis of coronary artery without angina pectoris (Chronic) Successful PTCA/GORDO distal LCX with a 2.25 x 24 Promus Synergy 12/25/2019 Stented coronary artery (Chronic 12/25/19) Successful PTCA/GORDO distal LCX with a 2.25 x 24 Promus Synergy 12/25/2019 BPH (benign prostatic hyperplasia) (Chronic) Hyperlipemia (Chronic) Hypertension (Chronic) Surgical History: tonsillectomy, - - Left arm surgery secondary to laceration, tonsillectomy, cataract surgery. Psychiatric History: No pertinent psych hx - *Family History Maternal History Items: Hypertension, - - Mother with history of dementia. Paternal History Items: Heart Disease Smoking Status: Former smoker Objective: Vital Signs Temp Pulse Resp BP Pulse Ox 98.1 F 75 16 161/65 H 100 12/06/20 08:25 12/06/20 08:25 12/06/20 08:25 12/06/20 08:25 12/06/20 08:25 Oxygen Delivery Method Room Air Weight: 175 lb 0.752 oz Body Mass Index (BMI) 25.8 Intake and Output for Last 24 Hours 12/04/20 12/05/20 12/06/20 23:59 23:59 23:59 Intake Total 1000 / 1000 Balance 1000 / 1000 General: Awake, Alert, Oriented x 3 HEENT: PERRL, EOMI, Sclera Non Icteric Neck: Supple, Good ROM, No Lymph Node Enlargement Lungs: Clear to auscultation Cardiovascular: Normal S2, No Murmurs, No Rubs, No Gallops 12/06/20 06:05: WBC 9.7, RBC 4.80, Hgb 15.2, Hct 43.3, MCV 90.2, MCH 31.7, MCHC 35.1, Plt Count 342, MPV 9.3, Immature Gran % (Auto) 0.400, Neut % (Auto) 67.8, Lymph % (Auto) 20.5, [place] % (Auto) 9.5, Eos % (Auto) 1.3, Baso % (Auto) 0.5, Absolute Neuts (auto) 6.6, Nucleated RBC % 0 12/06/20 06:05: Sodium 129 L, Potassium 3.7, Chloride 92 L, Carbon Dioxide 29.0, Anion Gap 8, BUN 15, Creatinine 0.89, Est GFR (MDRD) Af Amer 106, Est GFR (MDRD) Non-Af 87, BUN/Creatinine Ratio 16.9, Glucose 149 H, Calcium 9.6, Magnesium 2.1, Troponin I < 0.015 12/06/20 06:05: B-Natriuretic Peptide 20.8 12/06/20 08:59: Troponin I < 0.015 Rhythm: Sinus rhythm EKG: Nonspecific change, evidence of left ventricle hypertrophy. Assessment/Plan 80-year-old patient, cardiac consult patient requested to evaluate for CAD progression Patient had history of CAD, PCI and stent of the left circumflex artery done in December 25, 2019 Using drug-eluting stent 2.25 x 24 mm Evidently patient seen by his primary employment case manager and follow-up by Dr. Pittman Recently he was seen by his primary care physician Dr. Rick who increase his medication for hypertension he was on losartan HCTZ. He denied any symptoms of chest pain today and he is very reluctant to undergo stress test Electrocardiogram on this admission showed sinus rhythm with 30 degree AV block and voltage criteria for LVH Patient lives with his Card examination essentially normal In the initial set of cardiac biomarker was high sensitive troponin has been negative Assessment and plan; 1. I reviewed and discussed his current medication will continue current treatment/maximize medical therapy 2. Patient reluctant to undergo nuclear stress test Continue to monitor and follow-up clinically during this admission. Plan cardiac care plan discussed with the patient and nursing staff
[2020-12-06] MEDS: Losartan Potassium 100 MG Tablet PO (10:28)
[2020-12-06] MEDS: Metoprolol Tartrate 50 MG Tablet PO ×2 (10:29→20:32)
[2020-12-06] MEDS: Isosorbide Mononitrate 30 MG Tablet PO (10:29)
[2020-12-06] MEDS: Clopidogrel Bisulfate 75 MG Tablet PO (10:29)
[2020-12-06] MEDS: Finasteride 5 MG Tablet PO (10:29)
--- NOTE | 2020-12-06 10:40 | HP.PCM_ITS ---
History of Present Illness Date of Admission: 12/06/20 Chief Complaint: Chest pain The patient is a 80 year old M with a PMH as below who presents to the hospital with chest pain and a sensation of palpitations. He says he is not been feeling well for about the last 2 days just feeling off and then starting this morning around 1 AM he felt like his heart was racing. He was unable to sleep because of his chest discomfort. At around 4 AM he started moving around and his symptoms got worse so he called EMS and presented to the ER. Initial troponin was unremarkable and EKG only showed T wave inversions in aVL. He had a cardiac cath less than a year ago with a stent placed to his circumflex. And recently his blood pressure medications were increased by his PCP, he states that he was added hydrochlorothiazide and he thinks that he had had this added to his medication list a year ago when he had similar issues with palpitations which he thinks is the hydrochlorothiazide that is causing his palpitations at this time and he is refusing to take it. Past Medical History Past Medical History (Chronic Problems): Chronic Problems (Last Updated 12/25/19 @ 13:56 by Veronica Zimmerman) Atherosclerosis of coronary artery without angina pectoris (Chronic) Successful PTCA/GORDO distal LCX with a 2.25 x 24 Promus Synergy 12/25/2019 Stented coronary artery (Chronic 12/25/19) Successful PTCA/GORDO distal LCX with a 2.25 x 24 Promus Synergy 12/25/2019 BPH (benign prostatic hyperplasia) (Chronic) Hyperlipemia (Chronic) Hypertension (Chronic) Medical History: Medical History (Last Updated 12/25/19 @ 13:56 by Veronica Zimmerman) Atherosclerosis of coronary artery without angina pectoris (Chronic) I25.10 Successful PTCA/GORDO distal LCX with a 2.25 x 24 Promus Synergy 12/25/2019 Allergies No Known Allergies Allergy (Verified 05/01/20 11:17) Home Medications: Ambulatory Orders Medication Instructions Recorded RX: Finasteride [Proscar] 5 mg PO DAILY 12/16/14 atorvastatin 40 mg tablet 40 mg PO QHS #90 tab 12/26/19 isosorbide mononitrate 30 mg 30 mg PO DAILY #30 tab 12/26/19 tablet,extended release 24 hr losartan 100 mg tablet 100 mg PO DAILY #90 tab 12/26/19 metoprolol tartrate 50 mg tablet 50 mg PO BID #180 tab 12/26/19 RX: Cholecalciferol (Vitamin D3) 5,000 unit PO DAILY 05/01/20 [Vitamin D3] RX: Aspirin E.C. [Ecotrin] 81 mg PO DAILY #0 05/02/20 RX: Clopidogrel Bisulfate 75 mg PO DAILY #0 05/02/20 [Clopidogrel] Hydrochlorothiazide [Hctz] 25 mg PO DAILY 12/06/20 Surgical History: Surgical History (Last Updated 12/25/19 @ 13:56 by Veronica Zimmerman) Stented coronary artery (Chronic) Onset Date: 12/25/19 Z95.5 Successful PTCA/GORDO distal LCX with a 2.25 x 24 Promus Synergy 12/25/2019 Surgical History: tonsillectomy, - - Left arm surgery secondary to laceration, tonsillectomy, cataract surgery. Psychiatric History: No pertinent psych hx Smoking Status: Former smoker Tobacco Use: Cigarettes Alcohol: None Drugs: None - *Family History Maternal History Items: Hypertension, - - Mother with history of dementia. Paternal History Items: Heart Disease Review of Systems Constitutional: Reports: Weakness. Denies: Chills, Fever, Weight Change HEENT: Denies: Head Aches, Sinus Congestion, Sinus Drainage Cardiovascular: Reports: Chest Tightness, Palpitations. Denies: Chest Pain Respiratory: Denies: Cough, Shortness of breath at rest, Sputum production Gastrointestinal: Denies: Abdominal Pain, Nausea, Vomiting Genitourinary: Denies: Dysuria Musculoskeletal: Denies: Joint Pain, Joint Tenderness Skin: Denies: Rash, Wounds Neurological: Denies: Numbness, Tingling, Focal weakness Psychiatric: Denies: Anxiety, Depression Hematologic/ Lymphatic: Denies: Easy Bruising, Easy Bleeding VTE Information - Inpt Only VTE Present on Admission: No - Physical Exam Vitals/I&O's: Vital Signs Temp Pulse Resp BP Pulse Ox 98.1 F 75 16 161/65 H 100 12/06/20 08:25 12/06/20 10:29 12/06/20 08:25 12/06/20 08:25 12/06/20 08:25 Oxygen Delivery Method Room Air Weight: 175 lb 0.752 oz Body Mass Index (BMI) 25.8 Intake and Output for Last 24 Hours 12/04/20 12/05/20 12/06/20 23:59 23:59 23:59 Intake Total 1000 / 1000 Balance 1000 / 1000 General: Alert, Oriented x3, Cooperative, No apparent distress HEENT: Atraumatic, PERRLA, EOMI, Normocephalic Oral: Moist Mucosa Neck: Supple, No JVD Lungs: Clear to auscultation, Normal air movement, No rhonchi, No wheeze, No rales Cardiovascular: Regular rate, Regular Rhythm, Normal S1, Normal S2, No murmurs Abdomen: Soft, Non Tender, Non-Distended, No Hepato-splenomegaly Extremities: No edema, Capillary Refill Less than 3 Seconds Skin: No rashes, No breakdown Neurological: Neuro grossly intact, Sensory exam intact to light touch and pain Psych/Mental Status: Normal Affect, Appropriate Laboratory Results 12/06/20 06:05: WBC 9.7, RBC 4.80, Hgb 15.2, Hct 43.3, MCV 90.2, MCH 31.7, MCHC 35.1, RDW Std Deviation 39.5, RDW Coeff of Yoan 11.9, Plt Count 342, MPV 9.3, Immature Gran % (Auto) 0.400, Neut % (Auto) 67.8, Lymph % (Auto) 20.5, [place] % (Auto) 9.5, Eos % (Auto) 1.3, Baso % (Auto) 0.5, Absolute Neuts (auto) 6.6, Absolute Lymphs (auto) 1.98, Nucleated RBC % 0 12/06/20 06:05: Sodium 129 L, Potassium 3.7, Chloride 92 L, Carbon Dioxide 29.0, Anion Gap 8, BUN 15, Creatinine 0.89, Estim Creat Clear Calc 65.10, Est GFR (MDRD) Af Amer 106, Est GFR (MDRD) Non-Af 87, BUN/Creatinine Ratio 16.9, Glucose 149 H, Calcium 9.6, Magnesium 2.1, Troponin I < 0.015, TSH 3.01 12/06/20 06:05: B-Natriuretic Peptide 20.8 12/06/20 08:59: Troponin I < 0.015 Current Medications Acetaminophen (Acetaminophen 325 Mg Tablet) 650 mg PO Q6H PRN PRN PRN Reason: Pain Score 1-10/Temp > 100.7 F Aspirin (Aspirin E.C. 81 Mg Tablet) [facility] Last Admin: 12/06/20 10:34 Dose: Not Given Documented by: Atorvastatin Calcium (Atorvastatin Calcium 40 Mg Tablet) 40 mg PO QHS [facility] Clopidogrel Bisulfate (Clopidogrel Bisulfate 75 Mg Tablet) 75 mg PO DAILY [facility] Last Admin: 12/06/20 10:29 Dose: 75 mg Documented by: Enoxaparin Sodium (Enoxaparin 40 Mg/0.4 Ml Syringe) 40 mg SC DAILY [facility] Last Admin: 12/06/20 10:34 Dose: Not Given Documented by: Finasteride (Finasteride 5 Mg Tablet) 5 mg PO DAILY [facility] Last Admin: 12/06/20 10:29 Dose: 5 mg Documented by: Isosorbide Mononitrate (Isosorbide Mononitrate 30 Mg Tablet) 30 mg PO DAILY [facility] Last Admin: 12/06/20 10:29 Dose: 30 mg Documented by: Losartan Potassium (Losartan Potassium 100 Mg Tablet) 100 mg PO DAILY [facility] Last Admin: 12/06/20 10:28 Dose: 100 mg Documented by: Melatonin (Melatonin 3 Mg Tablet) 3 mg PO QHS PRN PRN PRN Reason: INSOMNIA Metoprolol Tartrate (Metoprolol Tartrate 50 Mg Tablet) 50 mg PO BID [facility] Last Admin: 12/06/20 10:29 Dose: 50 mg Documented by: Nitroglycerin (Nitroglycerin (Inpatient Use) 0.4 Mg Tab.Subl) 0.4 mg SUBLINGUAL Q5M PRN PRN Reason: CARDIAC/CHEST PAIN Ondansetron HCl (Ondansetron 4 Mg/2 Ml Vial) 4 mg IV Q8H PRN PRN PRN Reason: NAUSEA/VOMITING Sodium Chloride (0.9% Saline Lock 10 Ml Syringe) 10 - 40 ml IV UD PRN PRN Reason: SALINE FLUSH Sodium Chloride (0.9% Saline Lock 10 Ml Syringe) 10 - 40 ml IV UD PRN PRN Reason: SALINE FLUSH Assessment/Plan All Active Problems (Last Updated 12/25/19 @ 13:56 by Veronica Zimmerman) Elevated troponin (Acute) Palpitations (Acute) Accelerated hypertension (Acute) Hypokalemia (Acute) Chest pain (Acute) 1. Chest pain/palpitations/CAD status post stent/HTN/HLD -Had a stent placed in December 2019 in his left circumflex -Continue with aspirin and Plavix -We will continue with his home blood pressure medications and consult cardiology -Since he does not want to take hydrochlorothiazide which was added by his PCP, could also transitioned metoprolol to Coreg or start him on Norvasc -Does not want a stress test therefore we will try to maximize therapy and continue to trend troponins plan will be for heart cath on Tuesday -We will obtain an echo, his last EF was 60% with stage II diastolic dysfunction -Continue with Lipitor 2. BPH -Stable -Continue with Proscar DVT: Lovenox OBSV E&M: [id number] Initial observation care L2
--- NOTE | 2020-12-06 10:46 | ECHOCS_ITS ---
Reason For Study: Chest pain Procedure This was a 2D Doppler, Color Flow transthoracic echocardiogram. The study was technically difficult. Exam performed portable in patient room. Left Ventricle Moderate assymetric septal hypertrophy. The estimated ejection fraction is EF 55-60% %. Right Ventricle Normal right ventricle. Normal systolic function. Atria Normal left atrium. Normal right atrium. Mitral Valve The mitral valve is structurally normal. No prolapse or stenosis seen. Trivial mitral valve insufficiency. Tricuspid Valve The tricuspid valve is not well visualized. Normal tricuspid valve. Aortic Valve Normal aortic valve. Pulmonic Valve The pulmonic valve is not well visualized. Great Vessels Normal aortic root. Inferior vena cava collapse with respiration. Pericardium/Pleural No pericardial effusion. Medication Diluted definity 1ml given slow IV push to enhance endocardial definition. MMode/2D Measurements & Calculations LVIDd: 3.8 cm IVSd: 1.5 cm Ao root diam: 3.3 cm LVIDs: 2.1 cm LVPWd: 1.0 cm FS: 43.6 % LAV(MOD-bp): 41.9 ml LA A4 area: 16.4 cm2 LA dimension(2D): 3.5 cm LAV(MOD-bp) Indexed: 21.5 ml/m2 LAV(MOD-sp2): 39.5 ml LAV(MOD-sp4): 44.4 ml RA A4 area: 12.8 cm2 Doppler Measurements & Calculations MV E max prem: 82.6 cm/sec Lat Peak E' Prem: 8.7 cm/sec Med Peak E' Prem: 7.3 cm/sec MV A max prem: 119.0 cm/sec E/E' lat: 9.5 E/E' med: 11.3 MV E/A: 0.69 Ao V2 max: 160.7 cm/sec LV V1 max: 97.9 cm/sec PA V2 max: 112.5 cm/sec Ao max P.3 mmHg LV V1 max P.8 mmHg Interpretation Summary The estimated ejection fraction is EF 55-60% %. Moderate assymetric Basalseptal hypertrophy. IVSD 1.5cm Grade #2 Diastolic Dysfunction Ordering Physician: Abhijit Nielsen Referring Physician: Evelio Villalba Performed By: Jyoti Gastelum RDCS
--- NOTE | 2020-12-06 14:56 | EKG12_ITS ---
Test Reason : MORNING EKG Blood Pressure : / mmHG Vent. Rate : 068 BPM Atrial Rate : 068 BPM P-R Int : 208 ms QRS Dur : 086 ms QT Int : 424 ms P-R-T Axes : 069 -46 060 degrees QTc Int : 450 ms Normal sinus rhythm Left anterior fascicular block Abnormal ECG When compared with ECG of 07-DEC-2020 02:58, MANUAL COMPARISON REQUIRED, DATA IS UNCONFIRMED Confirmed by KATHLEEN NGUYỄN, KARINA ([id number]), non linear editor MILTON MAYEN ([id number]) on 12/09/2020 12:38:09 PM Referred By: JARKE Confirmed By:KARINA WANG MD
[2020-12-06] MEDS: Atorvastatin Calcium 40 MG Tablet PO (20:33)
[2020-12-07] VITALS (13 sets, daily range): BP systolic 112–186; BP diastolic 47–69; PULSE 70–96; RESP 16–20; TEMP 36.2–36.8; O2SAT 97–99
--- NOTE | 2020-12-07 02:36 | NURSING ---
PT AWAKE WITH PALPITATIONS, VITAL SIGNS WERE OBTAINED, NOTIFIED DR RODRIGUEZ. NO NEW ORDERS RECEIVED. PT DENIES ANY PAIN AT THIS TIME.
--- NOTE | 2020-12-07 02:41 | EKG12_ITS ---
Test Reason : PALP Blood Pressure : / mmHG Vent. Rate : 069 BPM Atrial Rate : 069 BPM P-R Int : 216 ms QRS Dur : 090 ms QT Int : 396 ms P-R-T Axes : 070 -35 067 degrees QTc Int : 424 ms Sinus rhythm with 1st degree A-V block with Premature supraventricular complexes Left axis deviation Abnormal ECG When compared with ECG of 06-DEC-2020 11:42, MANUAL COMPARISON REQUIRED, DATA IS UNCONFIRMED Confirmed by KATHLEEN NGUYỄN, KARINA ([id number]), material expeditor MILTON MAYEN ([id number]) on 12/09/2020 12:49:14 PM Referred By: JAREK Confirmed By:KARINA WANG MD
--- NOTE | 2020-12-07 02:45 | NURSING ---
PT STATES HE FEELS THE PALPITATIONS AGAIN , VS OBTAINED. ORDERED EKG PER PROTOCOL TO EVALUATE.
[2020-12-07] MEDS: Potassium Chloride Oral Tablet 20 MEQ 40 MEQ PO (03:45)
[2020-12-07] MEDS: hydrALAZINE 20 MG/ML Vial 5 MG IV ×2 (03:45→12:11)
[2020-12-07] MEDS: LORazepam 1 MG Tablet PO (05:08)
[2020-12-07 06:56] LABS: Absolute Lymphocyte Count 0.99 X10^3/uL (0.83-4.51); Absolute Neutrophil Count 12.8 X10^3/uL (2.0-7.7); Basophil# 0.04 X10^3/uL; Basophil% 0.3 % (0-1); Hematocrit 44.1 % (40-54); Hemoglobin 15.2 g/dL (13.0-16.5); Lymphocyte # 0.99 X10^3/ul (4.0); Lymphocyte % 6.8 % (19-41); Mean Corp Hgb Conc 34.5 g/dL (32-36); Mean Corpuscular Hgb 31.2 pg (27.0-32.0); Mean Corpuscular Volume 90.6 fL (80-94); Mean Platelet Vol. 9.2 fl (6.2-12.0); Monocyte# 0.76 X10^3/uL; Monocyte% 5.2 % (0-10); NRBC Flagged by Analyzer 0 % (0-5); Neutrophil # 12.78 X10^3/uL (2.7-7.7); Neutrophil % 87.3 % (47-70); Platelet Count 358 K/mm3 (150-450); RBC Distribution Width CV 11.9 % (11.6-14.6); RBC Distribution Width SD 39.7 fl (35.1-43.9); Red Blood Count 4.87 M/mm3 (4.6-6.2); White Blood Count 14.6 K/mm3 (4.4-11.0)
[2020-12-07 07:19] LABS: Anion Gap 11 (5-15); BUN 16 mg/dL (7-18); BUN/Creat Ratio 15.7 RATIO (10-20); Calcium,Total 9.4 mg/dL (8.5-10.1); Chloride 95 mmol/L (98-107); Creatinine, Serum 1.02 mg/dL (0.70-1.30); EST Glomerular Filtration Rate 74 mL/min (>60); Est Glom Filt Rate - Afr Amer 90 mL/min (>60); Glucose 229 mg/dL (74-106); Potassium 4.2 mmol/L (3.5-5.1); Sodium Level 126 mmol/L (136-145)
[2020-12-07] MEDS: Isosorbide Mononitrate 30 MG Tablet PO (08:57)
[2020-12-07] MEDS: Clopidogrel Bisulfate 75 MG Tablet PO (08:57)
[2020-12-07] MEDS: Losartan Potassium 100 MG Tablet PO (08:57)
[2020-12-07] MEDS: Carvedilol 6.25 MG Tablet PO (08:57)
[2020-12-07] MEDS: Finasteride 5 MG Tablet PO (08:58)
[2020-12-07] MEDS: Aspirin E.C. 81 MG Tablet PO (08:59)
--- NOTE | 2020-12-07 10:16 | PCM.PN.HOSP ---
Subjective: Had elevated blood pressures overnight and felt like his head was pounding at times. Had some sharp chest pain associated with it but otherwise feels okay this morning Vitals/I&O's: Vital Signs Temp Pulse Resp BP Pulse Ox 97.1 F L 85 16 186/64 H 99 12/07/20 08:55 12/07/20 08:55 12/07/20 08:55 12/07/20 08:55 12/07/20 08:55 Oxygen Delivery Method Room Air Weight: 175 lb 0.752 oz Body Mass Index (BMI) 25.8 Intake and Output for Last 24 Hours 12/05/20 12/06/20 12/07/20 23:59 23:59 23:59 Intake Total 1840 / 2140 600 / 600 Balance 1840 / 2140 600 / 600 General: Alert, Oriented x3, Cooperative, No apparent distress HEENT: Atraumatic, PERRLA, EOMI, Normocephalic Oral: Moist Mucosa Neck: Supple, No JVD Lungs: Clear to auscultation, Normal air movement, No rhonchi, No wheeze, No rales Cardiovascular: Regular rate, Regular Rhythm, Normal S1, Normal S2, No murmurs Abdomen: Soft, Non Tender, Non-Distended, No Hepato-splenomegaly Extremities: No edema, Capillary Refill Less than 3 Seconds Skin: No rashes, No breakdown Neurological: Neuro grossly intact, Sensory exam intact to light touch and pain Psych/Mental Status: Normal Affect, Appropriate Laboratory Results 12/06/20 11:28: Troponin I < 0.015 12/07/20 06:25: WBC 14.6 H, RBC 4.87, Hgb 15.2, Hct 44.1, MCV 90.6, MCH 31.2, MCHC 34.5, RDW Std Deviation 39.7, RDW Coeff of Yoan 11.9, Plt Count 358, MPV 9.2, Immature Gran % (Auto) 0.400, Neut % (Auto) 87.3 H, Lymph % (Auto) 6.8 L, Charlton % (Auto) 5.2, Eos % (Auto) 0.0, Baso % (Auto) 0.3, Absolute Neuts (auto) 12.8 H, Absolute Lymphs (auto) 0.99, Nucleated RBC % 0 12/07/20 06:25: Sodium 126 L, Potassium 4.2, Chloride 95 L, Carbon Dioxide 20.0 L, Anion Gap 11, BUN 16, Creatinine 1.02, Estim Creat Clear Calc 56.80, Est GFR (MDRD) Af Amer 90, Est GFR (MDRD) Non-Af 74, BUN/Creatinine Ratio 15.7, Glucose 229 H, Calcium 9.4 Current Medications Acetaminophen (Acetaminophen 325 Mg Tablet) 650 mg PO Q6H PRN PRN PRN Reason: Pain Score 1-10/Temp > 100.7 F Aspirin (Aspirin E.C. 81 Mg Tablet) [facility] Admin: 12/07/20 08:59 Dose: 81 mg Documented by: Atorvastatin Calcium (Atorvastatin Calcium 40 Mg Tablet) 40 mg PO QHS [facility] Last Admin: 12/06/20 20:33 Dose: 40 mg Documented by: Carvedilol (Carvedilol 6.25 Mg Tablet) 6.25 mg PO BID [facility] Last Admin: 12/07/20 08:57 Dose: 6.25 mg Documented by: Clopidogrel Bisulfate (Clopidogrel Bisulfate 75 Mg Tablet) 75 mg PO DAILY [facility] Last Admin: 12/07/20 08:57 Dose: 75 mg Documented by: Enoxaparin Sodium (Enoxaparin 40 Mg/0.4 Ml Syringe) 40 mg SC DAILY [facility] Last Admin: 12/07/20 09:00 Dose: Not Given Documented by: Finasteride (Finasteride 5 Mg Tablet) 5 mg PO DAILY [facility] Last Admin: 12/07/20 08:58 Dose: 5 mg Documented by: Hydralazine HCl (Hydralazine 20 Mg/Ml Vial) 5 mg IV Q4H PRN PRN PRN Reason: SBP > 160 OR DBP > 120 Last Admin: 12/07/20 03:45 Dose: 5 mg Documented by: Isosorbide Mononitrate (Isosorbide Mononitrate 30 Mg Tablet) 30 mg PO DAILY [facility] Last Admin: 12/07/20 08:57 Dose: 30 mg Documented by: Losartan Potassium (Losartan Potassium 100 Mg Tablet) 100 mg PO DAILY [facility] Last Admin: 12/07/20 08:57 Dose: 100 mg Documented by: Melatonin (Melatonin 3 Mg Tablet) 3 mg PO QHS PRN PRN PRN Reason: INSOMNIA Nitroglycerin (Nitroglycerin (Inpatient Use) 0.4 Mg Tab.Subl) 0.4 mg SUBLINGUAL Q5M PRN PRN Reason: CARDIAC/CHEST PAIN Ondansetron HCl (Ondansetron 4 Mg/2 Ml Vial) 4 mg IV Q8H PRN PRN PRN Reason: NAUSEA/VOMITING Sodium Chloride (0.9% Saline Lock 10 Ml Syringe) 10 - 40 ml IV UD PRN PRN Reason: SALINE FLUSH Sodium Chloride (0.9% Saline Lock 10 Ml Syringe) 10 - 40 ml IV UD PRN PRN Reason: SALINE FLUSH STROKE Vital Signs/Narrative: Vital Signs Temp Pulse Resp BP Pulse Ox 12/07/20 08:55 97.1 F L 85 16 186/64 H 99 12/07/20 07:45 74 Medical Necessity - Tobacco Use Smoking Status: Former smoker Tobacco Use: Cigarettes Assessment/Plan All Active Problems (Last Updated 12/25/19 @ 13:56 by Veronica Zimmerman) Elevated troponin (Acute) Palpitations (Acute) Accelerated hypertension (Acute) Hypokalemia (Acute) Chest pain (Acute) 1. Chest pain/palpitations/CAD status post stent/HTN/HLD -Had a stent placed in December 2019 in his left circumflex -Continue with aspirin and Plavix -We will continue with his home blood pressure medications and consult cardiology -Start him on Coreg 6.25 mg twice daily, and discontinue his metoprolol. Will increase this as necessary to achieve blood pressure control. -Does not want a stress test therefore we will try to maximize therapy and continue to trend troponins plan will be for heart cath on Tuesday -We will obtain an echo, his last EF was 60% with stage II diastolic dysfunction -Continue with Lipitor 2. BPH -Stable -Continue with Proscar DVT: Lovenox OBSV E&M: 67547 Subsequent observation care L2
[2020-12-07] MEDS: 0.9% Saline Lock 10 ML Syringe IV (12:13)
--- NOTE | 2020-12-07 12:19 | PCM.PN.CARD ---
Objective: Vital Signs Temp Pulse Resp BP Pulse Ox 97.1 F L 85 16 175/63 H 99 12/07/20 08:55 12/07/20 12:11 12/07/20 08:55 12/07/20 12:11 12/07/20 08:55 Oxygen Delivery Method Room Air Weight: 175 lb 0.752 oz Body Mass Index (BMI) 25.8 Intake and Output for Last 24 Hours 12/05/20 12/06/20 12/07/20 23:59 23:59 23:59 Intake Total 1840 / 2139 1000 / 1000 Balance [id number] 1000 / 1000 General: Healthy Appearing, Awake, Alert, Oriented x 3 HEENT: PERRL, EOMI, Sclera Non Icteric Neck: Supple, Good ROM, No Lymph Node Enlargement Lungs: Clear to auscultation Cardiovascular: Regular Rhythm, Normal S1, Normal S2, No Murmurs, No Rubs, No Gallops Vascular: No Carotid Bruits, Normal Femoral Pulses, Normal Radial Pulses, Normal Dorsalis Pedal Pulse, Normal Posterior Tibial Pulses Abdomen: Bowel Sounds Present, Soft, Non Tender, No HSM, No Organomegaly Extremities: No Cyanosis, No Clubbing, No edema Neurological: No Focal Motor or Sensory Deficit 12/07/20 06:25: WBC 14.6 H, RBC 4.87, Hgb 15.2, Hct 44.1, MCV 90.6, MCH 31.2, MCHC 34.5, Plt Count 358, MPV 9.2, Immature Gran % (Auto) 0.400, Neut % (Auto) 87.3 H, Lymph % (Auto) 6.8 L, Colbert % (Auto) 5.2, Eos % (Auto) 0.0, Baso % (Auto) 0.3, Absolute Neuts (auto) 12.8 H, Nucleated RBC % 0 12/07/20 06:25: Sodium 126 L, Potassium 4.2, Chloride 95 L, Carbon Dioxide 20.0 L, Anion Gap 11, BUN 16, Creatinine 1.02, Est GFR (MDRD) Af Amer 90, Est GFR (MDRD) Non-Af 74, BUN/Creatinine Ratio 15.7, Glucose 229 H, Calcium 9.4 Rhythm: EKG: ECHO: Stress Test: Cardiac Cath: PCI: CT Surgery: Holter monitor: EPS: PPM: CXR: Chest CT Scan: Medical Necessity - Tobacco Use Smoking Status: Former smoker Tobacco Use: Cigarettes Assessment/Plan 80-year-old patient seen and evaluated today at bedside Evidently had symptoms of headache and had discomfort in the chest left upper last night Today is feeling stable he does not have any further episode of chest pain Noted his blood pressure was high and cardiac bio -markers/with high sensitive troponins is within normal Cardiac telemetry underlying rhythm is sinus Cardiac exam essentially normal. Assessment and plan;. 1. Increase the dose of carvedilol to 12.5 twice a day 2. We will continue on dual antiplatelet therapy with Plavix and aspirin/atorvastatin and also on Imdur 3. 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 LV systolic function preserved ejection fraction 60%, stage II diastolic dysfunction. Dr. Pitmtan, patient had a history of CAD with left circumflex stent December 2019
[2020-12-07] MEDS: Atorvastatin Calcium 40 MG Tablet PO (21:36)
[2020-12-07] MEDS: Carvedilol 12.5 MG Tablet PO (21:43)
[2020-12-08] VITALS (13 sets, daily range): BP systolic 87–136; BP diastolic 46–65; PULSE 58–72; RESP 14–18; TEMP 36.4–36.8; O2SAT 92–98
--- NOTE | 2020-12-08 05:55 | EKG12_ITS ---
Test Reason : CP ADMISSION Blood Pressure : / mmHG Vent. Rate : 075 BPM Atrial Rate : 075 BPM P-R Int : 206 ms QRS Dur : 092 ms QT Int : 368 ms P-R-T Axes : 071 -23 056 degrees QTc Int : 410 ms Sinus rhythm with Premature supraventricular complexes Otherwise normal ECG When compared with ECG of 06-DEC-2020 06:19, MANUAL COMPARISON REQUIRED, DATA IS UNCONFIRMED Confirmed by KATHLEEN NGUYỄN, KARINA ([id number]), managing editor MILTON MAYEN ([id number]) on 12/09/2020 12:50:39 PM Referred By: OSEAS Confirmed By:KARINA WANG MD
[2020-12-08] MEDS: Clopidogrel Bisulfate 75 MG Tablet PO (06:21)
[2020-12-08] MEDS: Isosorbide Mononitrate 30 MG Tablet PO (06:21)
[2020-12-08] MEDS: Aspirin E.C. 81 MG Tablet PO (06:21)
[2020-12-08] MEDS: Losartan Potassium 100 MG Tablet PO (06:21)
[2020-12-08] MEDS: Carvedilol 12.5 MG Tablet PO (06:27)
--- NOTE | 2020-12-08 08:28 | PCM.PN.CARD ---
Subjectve: Patient seen and evaluated. Appears to be doing well this morning. Objective: Vital Signs Temp Pulse Resp BP Pulse Ox 98.3 F 66 16 130/54 H 98 12/08/20 06:18 12/08/20 07:00 12/08/20 06:18 12/08/20 06:18 12/08/20 06:18 Oxygen Delivery Method Room Air Weight: 175 lb 0.752 oz Body Mass Index (BMI) 25.8 Intake and Output for Last 24 Hours 12/06/20 12/07/20 12/08/20 23:59 23:59 23:59 Intake Total 1840 / 2140 1000 / 1300 350 / 350 Balance 1840 / 2140 1000 / 1300 350 / 350 General: Awake, Alert, Oriented x 3 HEENT: PERRL, EOMI, Sclera Non Icteric Neck: Supple, Good ROM, No Lymph Node Enlargement Lungs: Clear to auscultation Cardiovascular: Regular Rhythm, Normal S1, Normal S2, No Murmurs, No Rubs, No Gallops Vascular: No Carotid Bruits, Normal Femoral Pulses, Normal Radial Pulses, Normal Dorsalis Pedal Pulse, Normal Posterior Tibial Pulses Abdomen: Bowel Sounds Present, Soft, Non Tender, No HSM, No Organomegaly Extremities: No Cyanosis, No Clubbing, No edema Neurological: No Focal Motor or Sensory Deficit Rhythm: EKG: ECHO: Stress Test: Cardiac Cath: PCI: CT Surgery: Holter monitor: EPS: PPM: CXR: Chest CT Scan: Medical Necessity - Tobacco Use Smoking Status: Former smoker Tobacco Use: Cigarettes Assessment/Plan 1. Chest pain. Patient underwent cardiac catheterization this morning which demonstrated the following: Normal left main coronary artery. Left anterior descending artery with minimal luminal irregularities. Left circumflex artery previously stented with mild luminal irregularities. Nondominant right coronary artery with 40% mid stenosis. Preserved ejection fraction. Based on the above angiographic findings I would recommend we continue him on the current medical therapy. He can be discharged for outpatient follow-up. We will continue with risk factor modification. 2. Hypertension. Blood pressure appears well-controlled on the current medical therapy I would not recommend we make any other major changes. Thank you for allowing me to participate in the care of your patient. Please don't hesitate to call if any issues arise.
--- NOTE | 2020-12-08 08:35 | CL.D_ITS ---
Patient Name: MICHAEL HENRY Study Date: 12/08/2020 Performing: Albaro Pittman MD Ht: 69 inches 175 cm : 1940 Wt: 174.4 lbs 79 kg Age: 80 Gender: male BSA: 1.95 PROCEDURE(S) PERFORMED XD20-LEY/COR/LV CLINICAL PROFILE AND INDICATIONS Indications: Suspected CAD Heart Failure: None Stress/Imaging Stress/Image Study Performed: No CAD Presentations: Stable angina. CONCLUSIONS Minimal coronary artery disease. Previously placed stent in the distal circumflex artery is patent w ith mild in-stent stenosis only. The rest of the vessels appeared to be with mild disease. Nondomin ant right coronary artery with at most 50% stenosis. RECOMMENDATIONS Medical therapy DESCRIPTION OF PROCEDURE The patient arrived to the procedure lab. The risks and benefits of the procedure as well as a full d escription of our services here and current unavailability of surgical backup were fully explained to the patient and/or their significant other prior to the catheterization. The Timeout was completed, verifying the correct patient and procedure. The patient's procedural site was prepped and draped in the usual fashion. Local anesthetic was given subcutaneously to right radial region with Lidocaine 2% . Using a modified Seldinger technique, arterial access was obtained via the right radial artery, a 6 Fr sheath was inserted. Left Coronary Artery selective angiography was performed in multiple views u sing a 5 Fr. 4.0 [place] catheter. Right Coronary Artery selective angiography was then performed in mu ltiple views using a 5 Fr. 4.0 [place] catheter. Left Ventriculography was performed in BETH projection using a 5 Fr. Pigtail catheter. LV to AO pullback pressures were then recorded.The arterial sheath was pulled and a TR Band was applied for hemostasis CORONARY ANGIOGRAPHY DOMINANCE: Left Dominant LEFT HEART ASSESSMENT Left Ventricular Ejection Fraction: by LV Gram 65 % Normal LV wall motion Normal Left Ventricular systolic function LEFT MAIN: Angiographically normal LEFT ANTERIOR DESCENDING ARTERY: Mild luminal irregularities CIRCUMFLEX ARTERY: Mild luminal irregularities DISTAL CIRC: Previously placed stent is patent RIGHT CORONARY ARTERY: MID RCA: Moderate luminal irregularities up to 50% COMPLICATIONS No Complications PROCEDURE MEDICATIONS Fentanyl 50 mcg IV Versed 1 mg IV Versed 1 mg IV Oxygen: 2 L/min via nasal cannula IV Bolus: .9 NaCl 250ml total 12/08/2020 08:18:23 SUMMARY OF HEMODYNAMIC DATA Time AIR REST ECG 07:51:06 AO 75/30 (49) SA 08:15:31 LV 82/1, 5 08:22:47 LV 99/0, 9 08:22:54 LV 95/3, 9 08:23:21 LV 97/31, 35 08:23:28 Signed By Albaro Pittman MD On 12/08/2020 08:34:20 Albaro Pittman MD
[2020-12-08] MEDS: 0.9% Normal Saline 1,000 ML 100 ML IV (08:51)
[2020-12-08] MEDS: Finasteride 5 MG Tablet PO (08:58)
--- NOTE | 2020-12-08 10:10 | CASEMGMT ---
RN CM in to discuss MARTINEZ form with pt. Thorough explanation of MARTINEZ form provided by 2 RN CM's. Questions answered. Pt declined to sign MARTINEZ form at this time. MARTINEZ form filed in pt chart.
--- NOTE | 2020-12-08 10:34 | PCM.DC ---
You will use the following diet at home:: No restrictions Your food should be the consistency of: Regular Your liquids should be the consistency of: Regular/Thin Discharge Activity: Return to Normal Activity Weight Bearing Status: Full weight bearing Allergies/Adverse Reactions: Allergies No Known Allergies Allergy (Verified 05/01/20 11:17) Medications to take at Discharge Finasteride [Proscar] 5 mg PO DAILY 12/16/14 atorvastatin 40 mg tablet 40 mg PO QHS #90 tab 12/26/19 isosorbide mononitrate 30 mg tablet,extended release 24 hr 30 mg PO DAILY #30 tab 12/26/19 losartan 100 mg tablet 100 mg PO DAILY #90 tab 12/26/19 Cholecalciferol (Vitamin D3) [Vitamin D3] 5,000 unit PO DAILY 05/01/20 Aspirin E.C. [Ecotrin] 81 mg PO DAILY #0 05/02/20 Clopidogrel Bisulfate [Clopidogrel] 75 mg PO DAILY #0 05/02/20 Carvedilol [Coreg (Beta Eric)] 12.5 mg PO BID #60 tab 12/08/20 The following prescriptions were given: Carvedilol [Coreg (Beta Eric)] 12.5 mg PO BID #60 tab Transmission Status: Pending to [facility] #30 Primary Care Physician: Evelio Villalba MD [Primary Care Provider] - Please follow up with your Primary Care Physician in: in 7-10 days Test Results: Test results from this visit will be discussed in further detail at your follow-up appointment, if applicable. Please Follow Up With: Albaro Pittman MD When: in 4-6 weeks
--- NOTE | 2020-12-08 11:52 | PHA.DC.MC ---
Pharmacy Service has performed discharge medication reconciliation and counseling for this patient. The patient was counseled on the following discharge medications and changes in medications for homegoing were reviewed. 1. COREG - STOPPING METOPROLOL AND HCTZ (REVIEWED WITH PATIENT) The Reason for Use, instructions for use, and potential side effects were reviewed for all new medications. The patient's questions regarding all of their medications were answered. The patient was able to verbally demonstrate an understanding of their discharge medications. Home Medications Finasteride [Proscar] 5 mg PO DAILY 12/16/14 atorvastatin 40 mg tablet 40 mg PO QHS #90 tab 12/26/19 isosorbide mononitrate 30 mg tablet,extended release 24 hr 30 mg PO DAILY #30 tab 12/26/19 losartan 100 mg tablet 100 mg PO DAILY #90 tab 12/26/19 Cholecalciferol (Vitamin D3) [Vitamin D3] 5,000 unit PO DAILY 05/01/20 Aspirin E.C. [Ecotrin] 81 mg PO DAILY #0 05/02/20 Clopidogrel Bisulfate [Clopidogrel] 75 mg PO DAILY #0 05/02/20 Carvedilol [Coreg (Beta Eric)] 12.5 mg PO BID #60 tab 12/08/20
--- NOTE | 2020-12-10 18:01 | DS.PCM_ITS ---
Discharge Date and Diagnosis Date of Admission: 12/06/20 Date of Discharge: 12/08/20 - Primary Discharge Diagnosis Acute Problems: #1 Palpitations-etiology unclear #2 coronary artery disease #3 BPH #4 uncontrolled hypertension #5 atypical chest pain-etiology unclear #6 hyponatremia - Secondary Discharge Diagnosis Chronic Problems: Chronic Problems (Last Updated 12/08/20 @ 10:27 by Erma Becker) Atherosclerosis of coronary artery without angina pectoris (Chronic) Left ventricular diastolic dysfunction (Chronic) Essential (primary) hypertension (Chronic) BPH (benign prostatic hyperplasia) (Chronic) Hyperlipemia (Chronic) Hospital Course and Treatment Operations: None Procedures: 2-D Echocardiogram, Cardiac catheterization Summary of Care Provided: The patient is a 80 year old M was seen in the emergency room at [facility] with a chief complaint of palpitations and chest discomfort. Patient had a history of coronary artery disease with a GORDO in the distal left circumflex approximately a year prior. Work-up in the emergency room showed him to be in sinus rhythm with a T wave inversion in lead aVL which was new as compared with other EKGs. Labs were remarkable for a sodium of 129, troponin was unremarkable. Chest x-ray was unremarkable. Patient was hypertensive in the emergency room with a systolic blood pressure of 190, this improved without intervention in the ER patient was given an aspirin in the ER and he was placed in observation status on PCU, serial cardiac enzymes were obtained which were normal, patient refused a stress test but consented to a cardiac catheterization and was seen in consultation by cardiology. He underwent an echocardiogram which was unremarkable. Patient underwent a cardiac catheterization on 12/08/2020 which did not show any occlusive coronary disease. On 12/08/2020, patient was seen and examined: On examination he appeared in good health and spirits. Vital signs as documented. Skin warm and dry and without overt rashes. Neck without JVD, neck was supple, trachea midline, thyroid was normal. Lungs clear bilaterally, normal air movement was noted. Heart exam notable for regular rhythm, normal sounds and absence of murmurs, rubs or gallops. Abdomen unremarkable and without evidence of organomegaly, masses, or abdominal aortic enlargement. Bowel sounds are present, abdomen is not distended. Extremities nonedematous, no cyanosis was noted, no clubbing was noted. Neuro: Cranial nerves II through XII are grossly intact, no focal motor deficits were noted, sensation to light touch and pinprick intact, motor exam 5/5 throughout. Psych: Patient is alert and oriented x3, he does not appear anxious or depressed, he does not appear agitated. Patient was discharged in stable condition on 12/08/2020. - Physical Exam Vitals/I&O's: Vital Signs Temp Pulse Resp BP Pulse Ox 97.6 F L 72 18 136/65 H 96 12/08/20 11:30 12/08/20 12:30 12/08/20 12:30 12/08/20 12:30 12/08/20 12:30 Oxygen Delivery Method Room Air Weight: 79.4 kg Body Mass Index (BMI) 25.8 Intake and Output for Last 24 Hours 12/08/20 12/09/20 12/10/20 23:59 23:59 23:59 Intake Total 876.67 / 876.67 Balance 876.67 / 876.67 Discharge Activity: Return to Normal Activity Weight Bearing Status: Full weight bearing Home Medications: Medications to take at Discharge Finasteride [Proscar] 5 mg PO DAILY 12/16/14 atorvastatin 40 mg tablet 40 mg PO QHS #90 tab 12/26/19 isosorbide mononitrate 30 mg tablet,extended release 24 hr 30 mg PO DAILY #30 tab 12/26/19 losartan 100 mg tablet 100 mg PO DAILY #90 tab 12/26/19 Cholecalciferol (Vitamin D3) [Vitamin D3] 5,000 unit PO DAILY 05/01/20 Aspirin E.C. [Ecotrin] 81 mg PO DAILY #0 05/02/20 Clopidogrel Bisulfate [Clopidogrel] 75 mg PO DAILY #0 05/02/20 Carvedilol [Coreg (Beta Eric)] 12.5 mg PO BID #60 tab 12/08/20 Following Prescriptions Were Given to Patient: Carvedilol [Coreg (Beta Eric)] 12.5 mg PO BID #60 tab Transmission Status: Received by [employer] #30 Primary Care Physician: Evelio Villalba MD [Primary Care Provider] - Please follow up with your Primary Care Physician in: in 7-10 days Please Follow Up With: Albaro Pittman MD When: in 4-6 weeks Disposition: Home Minutes spent on discharge:: 30 Patient Condition:: Stable Medical Necessity - Tobacco Use Smoking Status: Former smoker Tobacco Use: Cigarettes Meaningful Use Info Meaningful Use Diagnoses (Choose all that apply): None applicable OBSV E&M: 23235 Observation care discharge
== END 2020-12-08 10:35 | disposition home or self-care (01) ==
LOC: ED 06:58 → PCU 07:33
PROVIDERS: Admitting Provider Family Medicine; Emergency Provider Emergency Medicine; PCP Family Medicine; Visit Provider Internal Medicine
DX: R00.2 Palpitations (principal); I25.118 Atherosclerotic heart disease of native coronary artery with other forms of angina pectoris; N40.0 Benign prostatic hyperplasia without lower urinary tract symptoms; I10 Essential (primary) hypertension; E87.1 Hypo-osmolality and hyponatremia; E78.5 Hyperlipidemia, unspecified; I44.0 Atrioventricular block, first degree; I25.2 Old myocardial infarction; Z87.891 Personal history of nicotine dependence; Z79.899 Other long term (current) drug therapy; Z79.82 Long term (current) use of aspirin; Z79.02 Long term (current) use of antithrombotics/antiplatelets; Z95.5 Presence of coronary angioplasty implant and graft
CPT/HCPCS: 36415; 71045; 80048; 83735; 83880; 84443; 84484; 85025; 93005; 93306; 93458; 96361; 96374; 96376; 99152; 99153; 99218; 99285; J7030; J7040; Q9957; Q9967; A4216; C1769; C1894; C8929; G0378

== ENCOUNTER 2021-03-23 13:36 | Emergency (ER) | payer MEDICARE, SELFPAY ==
[2021-02-05 12:50] VITALS: BMI 27.7
[2021-03-23 13:37] VITALS: BP 154/72; PULSE 59; RESP 18; TEMP 37.1; O2SAT 98; BMI 27.1
--- NOTE | 2021-03-23 13:54 | EKG12_ITS ---
Test Reason : CP Blood Pressure : / mmHG Vent. Rate : 063 BPM Atrial Rate : 063 BPM P-R Int : 218 ms QRS Dur : 086 ms QT Int : 376 ms P-R-T Axes : 073 -36 050 degrees QTc Int : 384 ms Sinus rhythm with 1st degree A-V block with frequent Premature ventricular complexes Left axis deviation Moderate voltage criteria for LVH, may be normal variant Abnormal ECG Confirmed by ROE NGUYỄN, SAFIA ([id number]), mapping editor MILTON MAYEN ([id number]) on 03/25/2021 9:24:38 AM Referred By: DR CROWE Confirmed By:SAFIA AU MD
[2021-03-23 14:35] VITALS: PULSE 69; RESP 16; O2SAT 99
--- NOTE | 2021-03-23 14:42 | ED.VIS.CHEST ---
HPI History of Present Illness Chief Complaint: Chest Pain Informant: patient Narrative Narrative: Presents with intermittent chest pains substernal with dyspnea. History of coronary stent x1 placed in December [address] Weldon left circumflex. He is on aspirin and Plavix. He is followed by Dr. Pittman. Reports was admitted this past December for palpitations and fast heart rate denies any history of dysrhythmia. He states he was recath this past December with no intervention. He states there is medication adjustments at that time. He followed up with Dr. Pittman last month, states his Imdur was discontinued carvedilol with increased to 25 mg twice daily. Yesterday worsening dyspnea. States been having symptoms worse with exertion. No recent travel surgeries or immobilizations. No history of PE or DVT. Reviewing records cath report from December 2020 patent circumflex stent, 50% right coronary lesion. EF of 55 to 60% on echocardiogram. Stage II diastolic dysfunction noted. Currently symptom-free. Prior Similar Symptoms: Yes PFSH PFSH Medical History Accelerated hypertension Atherosclerosis of coronary artery without angina pectoris BPH (benign prostatic hyperplasia) Elevated troponin Essential (primary) hypertension History of non-ST elevation myocardial infarction (NSTEMI) (12/24/19) Hyperlipemia Hypokalemia Left ventricular diastolic dysfunction Home Medications finasteride 5 mg PO DAILY 12/16/14 [History Last Taken 12/05/20] atorvastatin 40 mg tablet 40 mg PO QHS #90 tab 12/26/19 [Rx Last Taken 12/05/20] losartan 100 mg tablet 100 mg PO DAILY #90 tab 12/26/19 [Rx Last Taken 12/05/20] aspirin 81 mg PO DAILY #0 05/02/20 [Rx Last Taken 12/05/20] clopidogrel 75 mg PO DAILY #0 05/02/20 [Rx Last Taken 12/05/20] carvedilol 25 mg tablet 25 mg PO BID #120 tab 02/05/21 [Rx Last Taken Unknown] cholecalciferol (vitamin D3) 50 mcg (2,000 unit) capsule 50 mcg PO DAILY 02/05/21 [History Last Taken Unknown] Allergy/AdvReac Type Severity Reaction Status Date / Time No Known Allergies Allergy Verified 03/23/21 13:39 Family History Father Heart disease Mother Hypertension Surgical History History of cataract surgery History of coronary artery stent placement (12/25/19) History of left heart catheterization (12/08/20) History of tonsillectomy Social History Smoking Status: Former smoker ROS ROS ED Constitutional Constitutional ED: Denies chills, fever(s) or sweats Eyes Eyes: Denies change in vision ENT ENT ED: Denies dysphagia or sore throat Cardiovascular Cardiovascular: Reports chest pain; Denies leg edema, palpitations or racing heartbeat Respiratory/Chest Respiratory/Chest: Reports dyspnea and dyspnea on exertion; Denies cough Gastrointestinal Gastrointestinal: Denies abdominal pain, diarrhea, nausea or vomiting Genitourinary Genitourinary ED: Denies dysuria, hematuria or urinary frequency Musculoskeletal Musculoskeletal: Denies back pain, extremity pain or neck pain Integumentary Denies rash or wounds Neurologic Neurologic: Denies headache(s), paresthesias or weakness EXAM Physical Exam Const Vital Signs: 03/23/21 13:37 03/23/21 14:25 03/23/21 14:35 Temperature 98.7 F Temperature Source Temporal Pulse Rate 59 L 69 Respiratory Rate 18 16 Respiratory Effort Non-Labored Respiratory Pattern Normal Blood Pressure 154/72 H Blood Pressure Mean 99 Pulse Ox 98 99 Oxygen Delivery Method Room Air Room Air 03/23/21 15:14 03/23/21 15:38 03/23/21 17:20 Temperature Temperature Source Pulse Rate 59 L 57 L 58 L Respiratory Rate 21 H 14 12 Respiratory Effort Respiratory Pattern Blood Pressure 177/74 H 154/59 H Blood Pressure Mean 108 90 Pulse Ox 96 98 100 Oxygen Delivery Method Room Air Room Air Positive well nourished and well developed General Appearance ED: well developed and NAD HEENT Reports moist mucous membranes normocephalic and atraumatic Eyes PERRL, EOMs intact bilaterally and conjunctivae normal General Eye ED: Yes normal appearance of both eyes Neck no lymphadenopathy and supple General: Negative for tenderness Chest Wall Chest: Negative for tenderness Resp normal respiratory effort and normal air movement Effort and Inspection: symmetric chest movement; Negative for respiratory distress Cardio regular rate, regular rhythm and no murmurs Peripheral Pulses: pulses 2+ throughout GI normal to inspection, nondistended, normoactive bowel sounds and non-tender Palpation: Negative for guarding or rebound tenderness present Back/Spine no CVA tenderness and no thoracic nor lumbar tenderness Extremity normal to inspection General Extremety ED: Negative for edema or tenderness General Extremity: Negative for edema Neuro oriented x3 and no sensory deficits noted Sensorium / Orientation: awake and alert Skin no rashes or lesions noted and no wounds MDM MDM MDM Narrative Medical decision making narrative: Patient EKG normal. Cardiac work-up negative. With exertional dyspnea D-dimer obtained current 0.66, age-adjusted this is normal. Chest x-ray negative. 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 Pittman, knows the patient well. Discussed medication adjustments and recent cath. Recommended 3-hour troponin if negative will discharge with restart of his Imdur at 30 mg daily. He will continue his Coreg 25 mg twice daily with outpatient follow-up. Patient symptom-free on reevaluation. 181: Results second troponin negative. Remained symptom-free. Son is present. He will restart his Imdur. Follow-up with cardiology. Return precautions. Lab Data Attestation: I reviewed the patient's lab results. Labs: Laboratory Results - last 24 hr 03/23/21 03/23/21 03/23/21 14:30 14:30 14:30 WBC 5.9 RBC 4.34 L Hgb 13.6 Hct 40.0 MCV 92.2 MCH 31.3 MCHC 34.0 RDW Std Deviation 41.1 RDW Coeff of Yoan 12.0 Plt Count 258 MPV 9.3 Immature Gran % (Auto) 0.200 Neut % (Auto) 69.3 Lymph % (Auto) 18.5 L [place] % (Auto) 9.4 Eos % (Auto) 1.9 Baso % (Auto) 0.7 Absolute Neuts (auto) 4.1 Absolute Lymphs (auto) 1.10 Nucleated RBC % 0 D-Dimer Quant (PE/DVT) 0.66 H* Sodium 134 L Potassium 4.1 Chloride 100 Carbon Dioxide 26.0 Anion Gap 8 BUN 13 Creatinine 0.86 Estim Creat Clear Calc 67.37 Est GFR (MDRD) Af Amer 110 Est GFR (MDRD) Non-Af 91 BUN/Creatinine Ratio 15.2 Glucose 134 H Calcium 9.2 Troponin I < 0.015 03/23/21 17:22 WBC RBC Hgb Hct MCV MCH MCHC RDW Std Deviation RDW Coeff of Yoan Plt Count MPV Immature Gran % (Auto) Neut % (Auto) Lymph % (Auto) [place] % (Auto) Eos % (Auto) Baso % (Auto) Absolute Neuts (auto) Absolute Lymphs (auto) Nucleated RBC % D-Dimer Quant (PE/DVT) Sodium Potassium Chloride Carbon Dioxide Anion Gap BUN Creatinine Estim Creat Clear Calc Est GFR (MDRD) Af Amer Est GFR (MDRD) Non-Af BUN/Creatinine Ratio Glucose Calcium Troponin I < 0.015 Radiography Chest X-Ray - ED: 1 View, Read by ED Physician, Read by Radiologist and No Acute Disease Diagnostic Testing: Radiology Impression Chest X-Ray 03/23/21 15:10 IMPRESSION: Normal x-ray examination of the chest unchanged since December 2020. Electronically Signed: Ramya Reyes, at 15:46 EDT Tel , Service support , EKG Initial EKG: Attestation: I personally reviewed and interpreted this EKG as follows: Comments: Sinus rate of 63, occasional PVC noted. No ST or T wave changes. Discharge Plan Triage Chief Complaint: Chest Pain ED Provider: Louie Schmidt Dx/Rx/DC Orders Clinical Impression: Chest pain Instructions: ED Chest Pain, Uncertain Cause Prescriptions: No Action cholecalciferol (vitamin D3) 50 mcg (2,000 unit) capsule 50 mcg PO DAILY RF: 0 carvedilol 25 mg tablet 25 mg PO BID Qty: 120 RF: 3 finasteride 5 MG tablet 5 mg PO DAILY RF: 0 clopidogrel 75 MG tablet 75 mg PO DAILY Qty: 0 RF: 0 aspirin 81 MG tablet 81 mg PO DAILY Qty: 0 RF: 0 atorvastatin 40 mg tablet 40 mg PO QHS Qty: 90 RF: 3 losartan 100 mg tablet 100 mg PO DAILY Qty: 90 RF: 3 Primary Care Provider: Evelio Villalba Referrals: Albaro Pittman MD [STAFF PHYSICIAN] - 3-5 Days Evelio Villalba MD [Primary Care Provider] - Activity Restrictions/Additional Instructions: Restart your isosorbide mononitrate daily. Follow-up with cardiology. Disposition Disposition: Home, self care
[2021-03-23 14:43] LABS: Absolute Neutrophil Count 4.1 X10^3/uL (2.0-7.7); Basophil# 0.04 X10^3/uL; Basophil% 0.7 % (0-1); Eosinophil# 0.11 X10^3/uL; Eosinophils% 1.9 % (0-5); Hemoglobin 13.6 g/dL (13.0-16.5); Lymphocyte % 18.5 % (19-41); Mean Corpuscular Hgb 31.3 pg (27.0-32.0); Mean Corpuscular Volume 92.2 fL (80-94); Mean Platelet Vol. 9.3 fl (6.2-12.0); Monocyte# 0.56 X10^3/uL; Monocyte% 9.4 % (0-10); NRBC Flagged by Analyzer 0 % (0-5); Neutrophil # 4.12 X10^3/uL (2.7-7.7); Neutrophil % 69.3 % (47-70); Platelet Count 258 K/mm3 (150-450); RBC Distribution Width SD 41.1 fl (35.1-43.9); Red Blood Count 4.34 M/mm3 (4.6-6.2); White Blood Count 5.9 K/mm3 (4.4-11.0)
[2021-03-23 15:02] LABS: Anion Gap 8 (5-15); BUN 13 mg/dL (7-18); BUN/Creat Ratio 15.2 RATIO (10-20); Calcium,Total 9.2 mg/dL (8.5-10.1); Chloride 100 mmol/L (98-107); Creatinine, Serum 0.86 mg/dL (0.70-1.30); EST Glomerular Filtration Rate 91 mL/min (>60); Est Glom Filt Rate - Afr Amer 110 mL/min (>60); Estimated Creatinine Clearance 67.37 ml/min; Glucose 134 mg/dL (74-106); Potassium 4.1 mmol/L (3.5-5.1); Sodium Level 134 mmol/L (136-145)
--- NOTE | 2021-03-23 15:10 | RAD_ITS ---
STUDY: X-RAY CHEST REASON FOR EXAM: Male, 80 years old. chest pain TECHNIQUE: 1 view COMPARISON: 12/06/2020. FINDINGS: The lungs are clear and expanded. There is no demonstrated pleural abnormality. Normal size heart. Normal mediastinum and rico. Normal visualized pulmonary arteries. Normal visualized aortic arch and descending thoracic aorta. Normal visualized thoracic spine. Normal visualized ribs, clavicles, and shoulders. There is no demonstrated abnormality of the visualized soft tissue structures of the upper abdomen. RAD/Chest 1 View (Portable) IMPRESSION: Normal x-ray examination of the chest unchanged since December 2020. Electronically Signed: Ramya Reyes, at 15:46 EDT Tel , Service support ,
[2021-03-23 15:14] VITALS: PULSE 59; RESP 21; O2SAT 96
[2021-03-23 15:26] LABS: D-Dimer Quantitative (DVT/PE) 0.66 FEU/ug/m (0.27-0.49)
[2021-03-23 15:38] VITALS: BP 177/74; PULSE 57; RESP 14; O2SAT 98
[2021-03-23 17:20] VITALS: BP 154/59; PULSE 58; RESP 12; O2SAT 100
[2021-03-23 18:19] VITALS: BP 175/73; PULSE 62; RESP 15; O2SAT 99
== END 2021-03-23 18:23 | disposition home or self-care (01) ==
PROVIDERS: Emergency Provider Emergency Medicine; PCP Family Medicine
DX: R07.9 Chest pain, unspecified (principal); R06.00 Dyspnea, unspecified; I10 Essential (primary) hypertension; I25.10 Atherosclerotic heart disease of native coronary artery without angina pectoris; E78.5 Hyperlipidemia, unspecified; I25.2 Old myocardial infarction; Z95.5 Presence of coronary angioplasty implant and graft; Z87.891 Personal history of nicotine dependence; Z79.82 Long term (current) use of aspirin
CPT/HCPCS: 36415; 71045; 80048; 84484; 85025; 85379; 93005; 99284; A4216

== ENCOUNTER → 2021-05-27 14:42 | Outpatient (CLI) | payer MEDICARE, SELFPAY ==
[2021-05-27 17:47] LABS: Absolute Lymphocyte Count 1.48 X10^3/uL (0.83-4.51); Basophil# 0.05 X10^3/uL; Basophil% 0.9 % (0-1); Eosinophil# 0.22 X10^3/uL; Eosinophils% 3.9 % (0-5); Hematocrit 38.5 % (40-54); Hemoglobin 12.9 g/dL (13.0-16.5); Lymphocyte # 1.48 X10^3/ul (0.83-4.51); Lymphocyte % 26.3 % (19-41); Mean Corp Hgb Conc 33.5 g/dL (32-36); Mean Corpuscular Hgb 31.2 pg (27.0-32.0); Mean Platelet Vol. 9.6 fl (6.2-12.0); Monocyte# 0.82 X10^3/uL; Monocyte% 14.6 % (0-10); NRBC Flagged by Analyzer 0 % (0-5); Neutrophil # 3.04 X10^3/uL (2.7-7.7); Neutrophil % 53.9 % (47-70); Platelet Count 265 K/mm3 (150-450); RBC Distribution Width CV 12.2 % (11.6-14.6); RBC Distribution Width SD 42.4 fl (35.1-43.9); Red Blood Count 4.14 M/mm3 (4.6-6.2); White Blood Count 5.6 K/mm3 (4.4-11.0)
[2021-05-27 18:09] LABS: Anion Gap 6 (5-15); BUN 14 mg/dL (7-18); BUN/Creat Ratio 18.7 RATIO (10-20); Calcium,Total 8.9 mg/dL (8.5-10.1); Chloride 99 mmol/L (98-107); Cholesterol 114 mg/dL (200); Creatinine, Serum 0.75 mg/dL (0.70-1.30); EST Glomerular Filtration Rate 106 mL/min (>60); Est Glom Filt Rate - Afr Amer 128 mL/min (>60); Glucose 122 mg/dL (74-106); High Density Lipoprotein 41 mg/dL; Potassium 4.3 mmol/L (3.5-5.1); Sodium Level 131 mmol/L (136-145); Triglycerides 118 mg/dL; Very Low Density Lipoprotein 24 mg/dL (5-40)
== END ==
PROVIDERS: PCP Family Medicine; Referring Provider Family Medicine; Visit Provider Family Medicine
DX: I10 Essential (primary) hypertension (principal); R53.83 Other fatigue
CPT/HCPCS: 36415; 80048; 80061; 85025

== ENCOUNTER 2021-06-20 17:01 | Inpatient (IN) | payer MEDICARE, SELFPAY ==
[2021-06-20] VITALS (7 sets, daily range): BP systolic 167–238; BP diastolic 54–63; PULSE 46–52; RESP 15–16; TEMP 36.6–37.1; O2SAT 98–100; BMI 26.2; BMI 26.6
--- NOTE | 2021-06-20 17:35 | EKG12_ITS ---
Test Reason : CP Blood Pressure : / mmHG Vent. Rate : 047 BPM Atrial Rate : 078 BPM P-R Int : 000 ms QRS Dur : 118 ms QT Int : 418 ms P-R-T Axes : 071 070 -56 degrees QTc Int : 369 ms 2:1 AV block Otherwise normal ECG Confirmed by KATHLEEN NGUYỄN, KARINA ([id number]), non linear editor MILTON MAYEN ([id number]) on 06/22/2021 11:39:03 AM Referred By: NAPOLEON Confirmed By:KARINA WANG MD
--- NOTE | 2021-06-20 17:36 | EDS_ITS ---
HPI History of Present Illness Chief Complaint: Chest Pain Informant: patient Narrative Narrative: 81-year-old male with a history of coronary artery disease presents to the emergency department with chest discomfort and bradycardia. Patient underwent PCI to the circumflex artery December 2019. In December 2020 he had a second heart catheterization which showed a 50% RCA lesion. This was medically managed and has been doing well. He was on carvedilol 25 mg twice a day up until April when he was decreased to 12.5 mg twice a day due to fatigue. He had been doing well until yesterday when he noticed that his heart rate was slow. Today he was at a hotdog cookout and emptied a cooler and states that that was fatiguing to him. On his way home he noticed a bit of midsternal chest discomfort and decided it was time to be evaluated [facility] Medical History Accelerated hypertension Atherosclerosis of coronary artery without angina pectoris BPH (benign prostatic hyperplasia) Elevated troponin Essential (primary) hypertension History of non-ST elevation myocardial infarction (NSTEMI) (12/24/19) Hyperlipemia Hypokalemia Left ventricular diastolic dysfunction Multiple premature ventricular complexes Home Medications finasteride 5 mg PO DAILY 12/16/14 [History Last Taken 12/05/20] atorvastatin 40 mg tablet 40 mg PO QHS #90 tab 12/26/19 [Rx Last Taken 12/05/20] losartan 100 mg tablet 100 mg PO DAILY #90 tab 12/26/19 [Rx Last Taken 12/05/20] aspirin 81 mg PO DAILY #0 05/02/20 [Rx Last Taken 12/05/20] clopidogrel 75 mg PO DAILY #0 05/02/20 [Rx Last Taken 12/05/20] cholecalciferol (vitamin D3) 50 mcg (2,000 unit) capsule 50 mcg PO DAILY 02/05/21 [History Last Taken Unknown] carvedilol 12.5 mg tablet 12.5 mg PO BID #180 tab 04/08/21 [Rx Last Taken Unknown] isosorbide mononitrate 30 mg PO DAILY 06/20/21 [History Last Taken Unknown] Allergy/AdvReac Type Severity Reaction Status Date / Time No Known Allergies Allergy Verified 06/20/21 17:04 Family History Father Heart disease Mother Hypertension Surgical History History of cataract surgery History of coronary artery stent placement (12/25/19) History of left heart catheterization (12/08/20) History of tonsillectomy Social History (Updated 06/20/21 @ 17:[address] Derek Montez DO) Smoking Status: Former smoker substance use type: does not use ROS ROS ED Constitutional Constitutional ED: Denies chills or weight loss Eyes Eyes: Denies change in vision or diplopia ENT ENT ED: Denies ear pain, rhinorrhea or sore throat Cardiovascular Cardiovascular: Reports chest pain and other Details: Bradycardia ; Denies orthopnea, palpitations or racing heartbeat Respiratory/Chest Respiratory/Chest: Denies cough, dyspnea or orthopnea Gastrointestinal Gastrointestinal: Denies abdominal pain, diarrhea, nausea or vomiting Genitourinary Genitourinary ED: Denies dysuria, hematuria or urinary frequency Musculoskeletal Musculoskeletal: Denies arthralgias or myalgias Integumentary Denies abscess or rash Neurologic Neurologic: Denies headache(s) or weakness Psychiatric Psychiatric: Denies anxiety, depression, suicidal ideation or suicidal thoughts Endocrine Endocrinology: Denies polydipsia, polyphagia or polyuria Allergic/Immunologic Allergic/Immunologic ED: Denies mouth swelling, tongue swelling or urticaria EXAM Physical Exam Const Vital Signs: 06/20/21 17:01 06/20/21 17:27 06/20/21 17:28 Temperature 97.9 F Temperature Source Oral Pulse Rate 52 L 46 L Respiratory Rate 16 Respiratory Effort Normal Non-Labored Respiratory Pattern Normal Blood Pressure 167/54 H Blood Pressure Mean 91 Pulse Ox 100 Oxygen Delivery Method Room Air Positive well nourished and well developed General Appearance ED: well developed HEENT Reports normocephalic, head/scalp atraumatic and moist mucous membranes Eyes PERRL and EOMs intact bilaterally Neck no lymphadenopathy, supple and no JVD Resp normal respiratory effort and clear to auscultation bilaterally Cardio regular rhythm and no murmurs Rate: bradycardia GI normal to inspection, nondistended, normoactive bowel sounds and non-tender Palpation: soft Back/Spine no CVA tenderness and normal ROM Extremity normal to inspection General Extremety ED: Negative for edema General Extremity: Negative for edema Neuro oriented x3 and CN's II-XII intact bilaterally Sensorium / Orientation: alert Motor Exam: strength 5/5 throughout Psych mental status grossly normal Mood & Affect: Negative for depressed or tearful Skin no rashes or lesions noted and no wounds MDM MDM Lab Data Labs: Laboratory Results - last 24 hr 06/20/21 06/20/21 06/20/21 17:44 17:44 17:44 WBC 10.9 RBC 4.33 L Hgb 13.8 Hct 40.1 MCV 92.6 MCH 31.9 MCHC 34.4 RDW Std Deviation 40.9 RDW Coeff of Yoan 12.0 Plt Count 315 MPV 9.7 Immature Gran % (Auto) 0.600 Neut % (Auto) 67.4 Lymph % (Auto) 20.2 [place] % (Auto) 10.0 Eos % (Auto) 1.3 Baso % (Auto) 0.5 Absolute Neuts (auto) 7.3 Absolute Lymphs (auto) 2.20 Nucleated RBC % 0 PT 13.6 INR 1.1 APTT 32.2 Sodium 134 L Potassium 4.4 Chloride 101 Carbon Dioxide 24.0 Anion Gap 9 BUN 20 H Creatinine 1.05 Estim Creat Clear Calc 54.24 Est GFR (MDRD) Af Amer 87 Est GFR (MDRD) Non-Af 72 BUN/Creatinine Ratio 19.0 Glucose 177 H Calcium 9.6 Magnesium 2.2 Troponin I High Sens 98 H Radiography Diagnostic Testing: Radiology Impression Chest X-Ray 06/20/21 17:45 IMPRESSION: No radiographic evidence of acute cardiopulmonary disease and unchanged when compared to 03/23/2021. Electronically Signed: Bebeto Klein MD at 18:59 EDT , Service support , EKG Initial EKG: Attestation: I personally reviewed and interpreted this EKG as follows: Comments: Third-degree heart block with a ventricular rate of [address] elevation or depression noted Discharge Plan Dx/Rx/DC Orders Clinical Impression: Chest pain, Third degree heart block Disposition Disposition: [facility]
[2021-06-20] MEDS: Aspirin 81 MG TAB.CHEW 324 MG PO (17:45)
--- NOTE | 2021-06-20 17:45 | RAD_ITS ---
EXAM: XR CHEST, 1 VIEW CLINICAL INDICATION: Chest pain. TECHNIQUE: Frontal view of the chest. This report was created using [employer] report generation technology. COMPARISON: 03/23/2021. FINDINGS: LUNGS AND PLEURAL SPACES: Unremarkable. No consolidation or edema. No pneumothorax. No effusion. HEART: Unremarkable. Cardiac silhouette not enlarged. MEDIASTINUM: Central airways and mediastinal contour are unremarkable. BONES/JOINTS: Unremarkable. SOFT TISSUES: Unremarkable. RAD/Chest 1 View (Portable) IMPRESSION: No radiographic evidence of acute cardiopulmonary disease and unchanged when compared to 03/23/2021. Electronically Signed: Bebeto Klein MD at 18:59 EDT , Service support ,
[2021-06-20 17:58] LABS: Absolute Neutrophil Count 7.3 X10^3/uL (2.0-7.7); Basophil# 0.05 X10^3/uL; Basophil% 0.5 % (0-1); Eosinophil# 0.14 X10^3/uL; Eosinophils% 1.3 % (0-5); Hematocrit 40.1 % (40-54); Hemoglobin 13.8 g/dL (13.0-16.5); Lymphocyte % 20.2 % (19-41); Mean Corp Hgb Conc 34.4 g/dL (32-36); Mean Corpuscular Hgb 31.9 pg (27.0-32.0); Mean Corpuscular Volume 92.6 fL (80-94); Mean Platelet Vol. 9.7 fl (6.2-12.0); Monocyte# 1.09 X10^3/uL; NRBC Flagged by Analyzer 0 % (0-5); Neutrophil # 7.34 X10^3/uL (2.7-7.7); Neutrophil % 67.4 % (47-70); Platelet Count 315 K/mm3 (150-450); RBC Distribution Width SD 40.9 fl (35.1-43.9); Red Blood Count 4.33 M/mm3 (4.6-6.2); White Blood Count 10.9 K/mm3 (4.4-11.0)
[2021-06-20 18:05] LABS: International Normalized Ratio 1.1; Prothrombin Time (Protime)PT. 13.6 SECONDS (11.7-14.9)
[2021-06-20 18:06] LABS: Partial Thromboplast Time 32.2 Seconds (24.1-36.2)
[2021-06-20 18:12] LABS: Anion Gap 9 (5-15); BUN 20 mg/dL (7-18); Calcium,Total 9.6 mg/dL (8.5-10.1); Chloride 101 mmol/L (98-107); Creatinine, Serum 1.05 mg/dL (0.70-1.30); EST Glomerular Filtration Rate 72 mL/min (>60); Est Glom Filt Rate - Afr Amer 87 mL/min (>60); Estimated Creatinine Clearance 54.24 ml/min; Glucose 177 mg/dL (74-106); Magnesium 2.2 mg/dL (1.6-2.6); Potassium 4.4 mmol/L (3.5-5.1); Sodium Level 134 mmol/L (136-145); Troponin-I HS 98 pg/mL (3.0-78.0)
--- NOTE | 2021-06-20 19:29 | PCM.HP.STD ---
[facility] - General General Date of Admission: 06/20/21 Date of Service: 06/20/21 Chief Complaint: Lightheadedness HPI Narrative MICHAEL HENRY, is a 81 M with a significant history of CAD; hypertension who presents to emergency department with lightheadedness that started a day before presentation. Associated with his symptoms is hot flash and a feeling of his heart beating slower. His symptoms is with mild exertion and is intermittent. Also he reports some chest pain. At the emergent department he was found to be in third-degree block. Emergent department doctor discussed the case with cardiology and recommendation was made to hold his carvedilol. [facility] Medical History Accelerated hypertension Atherosclerosis of coronary artery without angina pectoris BPH (benign prostatic hyperplasia) Elevated troponin Essential (primary) hypertension History of non-ST elevation myocardial infarction (NSTEMI) (12/24/19) Hyperlipemia Hypokalemia Left ventricular diastolic dysfunction Multiple premature ventricular complexes Home Medications finasteride 5 mg PO DAILY 12/16/14 [History Last Taken 12/05/20] atorvastatin 40 mg tablet 40 mg PO QHS #90 tab 12/26/19 [Rx Last Taken 12/05/20] losartan 100 mg tablet 100 mg PO DAILY #90 tab 12/26/19 [Rx Last Taken 12/05/20] aspirin 81 mg PO DAILY #0 05/02/20 [Rx Last Taken 12/05/20] clopidogrel 75 mg PO DAILY #0 05/02/20 [Rx Last Taken 12/05/20] cholecalciferol (vitamin D3) 50 mcg (2,000 unit) capsule 50 mcg PO DAILY 02/05/21 [History Last Taken Unknown] carvedilol 12.5 mg tablet 12.5 mg PO BID #180 tab 04/08/21 [Rx Last Taken Unknown] isosorbide mononitrate 30 mg PO DAILY 06/20/21 [History Last Taken Unknown] Allergy/AdvReac Type Severity Reaction Status Date / Time No Known Allergies Allergy Verified 06/20/21 17:04 Family History Father Heart disease Mother Hypertension Surgical History History of cataract surgery History of coronary artery stent placement (12/25/19) History of left heart catheterization (12/08/20) History of tonsillectomy Social History Smoking Status: Former smoker substance use type: does not use ROS ROS Narrative Constitutional: Reports fatigue and hot flashes. Denies fever, chills, anorexia and change in weight Eyes: Denies blurry vision, change in eye color, change in vision, discharge from eye(s), double vision, erythema, eye pain, loss of vision or other HEENT: Denies abnormal hearing, dysphagia, ear pain, epistaxis, headache(s), hearing loss, nasal congestion, nasal discharge, post nasal drip, sinus pressure, sore throat or other. Reports adenitis Cardiovascular: Reports chest pain. Reports a feeling of decreased heartbeats. Respiratory/Chest: Reports shortness of breath. Denies cough. Gastrointestinal: Denies abdominal pain, coffee ground emesis, constipation, diarrhea, dyspepsia, hematemesis, hematochezia, loose stools, melena, nausea, vomiting or other Genitourinary: Denies burning urination, difficulty urinating, dysuria, hematuria, nocturia, urinary frequency, urinary hesitancy, urinary incontinence, urinary urgency or other Musculoskeletal: Denies arthralgias, back pain, joint pain, joint stiffness, joint swelling, myalgias, neck pain or other Neurologic: Denies abnormal gait, abnormal speech, confusion, disequilibrium, dizziness, focal weakness, headache(s), numbness, paresthesias, seizure-like activity, seizures, syncope, tingling, tremor(s) or other Psychiatric: Denies anxiety, depression, homicidal ideation, suicidal ideation or other Endocrinology: Denies change in body appearance, cold intolerance, excessive sweating, heat intolerance, polydipsia, polyuria or other Hematologic/Lymphatic: Denies anemia, easy bleeding, easy bruising, lymphadenopathy or other Integumentary: Denies rashes Allergic/Immunologic: Denies rhinitis, hives, eczema, asthma or other Vital Signs Vital Signs Vital Signs: 06/20/21 17:01 06/20/21 17:27 06/20/21 17:28 Temperature 97.9 F Temperature Source Oral Pulse Rate 52 L 46 L Respiratory Rate 16 Respiratory Effort Normal Non-Labored Respiratory Pattern Normal Blood Pressure 167/54 H Blood Pressure Mean 91 Pulse Ox 100 Oxygen Delivery Method Room Air Weight Weight: 80.739 kg Body Mass Index (BMI) 26.2 Physical Exam Narrative Physical exam: General: Well-nourished, well-developed. Head: Normocephalic, atraumatic, no tenderness Eyes: PERRLA, EOMI ENT, no trauma, moist mucous membranes, no rhinorrhea Neck: Nontender, full range of motion, no spinal tenderness, deformities, step-off CVS: Bradycardia. S1-S2 present. No murmur, gallop or rub. Respiratory : clear to auscultation bilaterally, chest wall nontender, no wheezing Abdomen: Soft, nontender, nondistended, normal bowel sounds, no masses : Deferred Back: Nontender, no CVA tenderness, no midline spinal tenderness, deformities, step-offs Extremities: Nontender full range of motion, no trauma Skin: Normal color, no trauma, abrasions Neuro: Alert, oriented, cranial nerves II through XII grossly intact. Psychiatry: Normal mood. Normal affect. Not depressed. Not anxious. Results Lab / Micro Data Result Diagrams: 06/20/21 17:44 06/20/21 17:44 Labs: Laboratory Results - last 24 hr 06/20/21 17:44: WBC 10.9, RBC 4.33 L, Hgb 13.8, Hct 40.1, MCV 92.6, MCH 31.9, MCHC 34.4, RDW Std Deviation 40.9, RDW Coeff of Yoan 12.0, Plt Count 315, MPV 9.7, Immature Gran % (Auto) 0.600, Neut % (Auto) 67.4, Lymph % (Auto) 20.2, [place] % (Auto) 10.0, Eos % (Auto) 1.3, Baso % (Auto) 0.5, Absolute Neuts (auto) 7.3, Absolute Lymphs (auto) 2.20, Nucleated RBC % 0 06/20/21 17:44: PT 13.6, INR 1.1, APTT 32.2 06/20/21 17:44: Sodium 134 L, Potassium 4.4, Chloride 101, Carbon Dioxide 24.0, Anion Gap 9, BUN 20 H, Creatinine 1.05, Estim Creat Clear Calc 54.24, Est GFR (MDRD) Af Amer 87, Est GFR (MDRD) Non-Af 72, BUN/Creatinine Ratio 19.0, Glucose 177 H, Calcium 9.6, Magnesium 2.2, Troponin I High Sens 98 H Radiology Impression Chest X-Ray 06/20/21 17:45 IMPRESSION: No radiographic evidence of acute cardiopulmonary disease and unchanged when compared to 03/23/2021. Electronically Signed: Bebeto Klein MD at 18:59 EDT , Service support , Assessment & Plan Assessment/Plan (1) Third degree heart block: (2) Chest pain: QUALIFIERS: Chest pain type: unspecified Qualified Code(s): R07.9 - Chest pain, unspecified PLAN: Third-degree heart block EKG tracing personally interpreted showed third-degree heart block with ventricular rate of 46. Case was discussed between emergent department doctor and cardiology with recommendation to hold carvedilol.I agree. Carvedilol held. N.p.o. after midnight for possible intervention. Cardiology consult. Chest pain Actual chest x-ray image was independently reviewed and I agree with radiologist interpretation above. High sensitive point of 98. Could be secondary to troponin leak from bradycardia; or NSTEMI. Trend troponin.. Nitroglycerin sublingual as needed. Aspirin and high intensity statin continued. Hold Plavix as patient is a surgical candidate. Isosorbide continued. Of note patient had a drug eluting stent placed in December 2019. In December 2020 he underwent cardiac catheterization that showed patent stents to mid circumflex artery and 50% mid right coronary artery lesion. Echocardiogram on 12/06/2020 showed preserved EF of 55 to 60% Hypertensive urgency High as systolic blood pressure of 238. Isosorbide and Imdur continued. Carvedilol held secondary to third-degree heart block. Hydralazine as needed ordered. Trend blood pressure and adjust blood pressure medications. DVT prophylaxis: SCD ordered Charges/Coding Multi Select Codes Visit Charges Visit Charges: 63342 Init Hosp L3
--- NOTE | 2021-06-20 21:19 | PCS.PANDOC ---
PANDEMIC DOCUMENTATION INITIATED: Date: 05/18/2021 Time: 190
--- NOTE | 2021-06-20 21:30 | PCS.PANDOC ---
PANDEMIC DOCUMENTATION INITIATED: Date: 05/18/2021 Time: 190
[2021-06-20] MEDS: Losartan Potassium 100 MG Tablet PO (21:39)
[2021-06-20] MEDS: Atorvastatin Calcium 40 MG Tablet PO (21:39)
--- NOTE | 2021-06-20 21:50 | EKG12_ITS ---
Test Reason : ADMISSION Blood Pressure : / mmHG Vent. Rate : 049 BPM Atrial Rate : 087 BPM P-R Int : 000 ms QRS Dur : 100 ms QT Int : 422 ms P-R-T Axes : 068 -55 058 degrees QTc Int : 381 ms Sinus Rhythm with 2nd degree AV Block Left anterior fascicular block Abnormal ECG When compared with ECG of 20-JUN-2021 17:13, MANUAL COMPARISON REQUIRED, DATA IS UNCONFIRMED Confirmed by KATHLEEN NGUYỄN, KARINA ([id number]), news assignment editor DANNI LOOMIS ([id number]) on 06/23/2021 2:13:51 PM Referred By: JENNIFER Confirmed By:KARINA WANG MD
[2021-06-20 22:26] LABS: Troponin-I HS 520 pg/mL (3.0-78.0)
[2021-06-21] VITALS (7 sets, daily range): BP systolic 123–161; BP diastolic 52–56; PULSE 52–56; RESP 15–18; TEMP 36.2–36.7; O2SAT 96–99
[2021-06-21 01:57] LABS: Troponin-I HS 802 pg/mL (3.0-78.0)
[2021-06-21 05:54] LABS: Absolute Lymphocyte Count 1.83 X10^3/uL (0.83-4.51); Absolute Neutrophil Count 10.3 X10^3/uL (2.0-7.7); Basophil# 0.06 X10^3/uL; Basophil% 0.4 % (0-1); Eosinophil# 0.06 X10^3/uL; Eosinophils% 0.4 % (0-5); Lymphocyte # 1.83 X10^3/ul (0.83-4.51); Lymphocyte % 13.2 % (19-41); Mean Corpuscular Volume 91.5 fL (80-94); Mean Platelet Vol. 9.3 fl (6.2-12.0); Monocyte# 1.56 X10^3/uL; Monocyte% 11.3 % (0-10); NRBC Flagged by Analyzer 0 % (0-5); Neutrophil % 74.3 % (47-70); POSITIVE DIFFERENTIAL YES; Platelet Count 306 K/mm3 (150-450); RBC Distribution Width CV 12.1 % (11.6-14.6); RBC Distribution Width SD 40.6 fl (35.1-43.9); Red Blood Count 4.37 M/mm3 (4.6-6.2); White Blood Count 13.9 K/mm3 (4.4-11.0)
[2021-06-21 05:59] LABS: Differential Indicated SCAN CRITERIA MET
[2021-06-21 06:27] LABS: Anion Gap 9 (5-15); BUN 16 mg/dL (7-18); BUN/Creat Ratio 18.6 RATIO (10-20); Calcium,Total 9.4 mg/dL (8.5-10.1); Chloride 103 mmol/L (98-107); Creatinine, Serum 0.86 mg/dL (0.70-1.30); EST Glomerular Filtration Rate 90 mL/min (>60); Est Glom Filt Rate - Afr Amer 109 mL/min (>60); Estimated Creatinine Clearance 66.22 ml/min; Glucose 182 mg/dL (74-106); Potassium 3.9 mmol/L (3.5-5.1); Sodium Level 134 mmol/L (136-145)
[2021-06-21 06:32] LABS: Troponin-I HS 790 pg/mL (3.0-78.0)
[2021-06-21] MEDS: Cholecalciferol (VIT D3) 25 MCG TABLET (1,000 UNITS) 50 MCG PO (08:03)
[2021-06-21] MEDS: Isosorbide Mononitrate 30 MG Tablet PO (08:03)
[2021-06-21] MEDS: Finasteride 5 MG Tablet PO (08:04)
--- NOTE | 2021-06-21 09:50 | ECHOCS_ITS ---
Reason For Study: Chest Pain Procedure This was a 2D Doppler, Color Flow transthoracic echocardiogram. The study was technically difficult. Contrast injection was performed. Exam performed portable in patient room. Left Ventricle Normal LV size. Left ventricular systolic function is normal. The estimated ejection fraction is 60 %. No regional wall motion abnormalities noted. Right Ventricle Normal RV size. Atria Normal left atrium. Normal right atrium. Mitral Valve Normal mitral valve. Mild (1+) eccentric mitral valve insufficiency. Tricuspid Valve Normal tricuspid valve. Mild tricuspid valve insufficiency. Pulmonary artery systolic pressure is 28 mmHg. Aortic Valve Trisinus/trileaflet aortic valve. Mild (1+) aortic valve insufficiency. Pulmonic Valve Normal pulmonic valve. Mild (1+) eccentric pulmonic valve insufficiency. Great Vessels Normal aortic root. The pulmonary artery is normal size. Normal inferior vena cava. Pericardium/Pleural No pericardial effusion. Medication Diluted definity 2ml given slow IV push to enhance endocardial definition. MMode/2D Measurements & Calculations LVIDd: 5.1 cm IVSd: 0.92 cm LA dimension: 3.7 cm LVIDs: 3.1 cm LVPWd: 0.88 cm FS: 38.8 % LAV(MOD-bp): 44.2 ml LA A4 area: 17.0 cm2 RA A4 area: 14.8 cm2 LAV(MOD-bp) Indexed: 22.4 ml/m2 LAV(MOD-sp2): 42.7 ml LAV(MOD-sp4): 46.0 ml Time Measurements MV dec time: 0.33 sec Doppler Measurements & Calculations MV E max prem: 124.2 cm/sec Lat Peak E' Prem: 7.9 cm/sec Med Peak E' Prem: 7.0 cm/sec MV A max prem: 123.8 cm/sec E/E' lat: 15.7 E/E' med: 17.7 MV E/A: 1.0 MV V2 max: 133.4 cm/sec MV P1/2t max prem: 124.2 cm/sec Ao V2 max: 99.1 cm/sec MV max P.1 mmHg MV P1/2t: 116.1 msec Ao max P.9 mmHg MV V2 mean: 82.3 cm/sec MV dec slope: 313.4 cm/sec2 MV mean P.2 mmHg MV V2 VTI: 49.6 cm MVA(P1/2t): 1.9 cm2 AI max prem: 393.3 cm/sec LV V1 max: 84.7 cm/sec PA V2 max: 113.6 cm/sec AI max P.9 mmHg LV V1 max P.9 mmHg AI dec slope: 156.5 cm/sec2 AI P1/2t: 736.1 msec PI end-d prem: 68.4 cm/sec TR max prem: 247.9 cm/sec TR max P.6 mmHg ECHO/Echo Complete W/ Contrast Interpretation Summary Mild (1+) aortic valve insufficiency. Pulmonary artery systolic pressure is 28 mmHg. Normal LV size. Left ventricular systolic function is normal. The estimated ejection fraction is 60 %. Contrast injection was performed. Ordering Physician: Kraig Rodriguez Referring Physician: Evelio Villalba Performed By: Isaac Mackey RCS
[2021-06-21] MEDS: HEPARIN/D5w 25,000 UNITS 25,000 UNITS/250 ML IV.SOLN. 12 UNITS IV (10:57)
[2021-06-21] MEDS: Heparin Injection (Vial) 5,000 UNIT/ML VIAL 6000 UNIT IV (10:57)
--- NOTE | 2021-06-21 11:47 | CON.PCM.CA_ITS ---
Assessment & Plan Assessment/Plan (1) Chest pain: QUALIFIERS: Chest pain type: unspecified Qualified Code(s): R07.9 - Chest pain, unspecified (2) History of non-ST elevation myocardial infarction (NSTEMI): (3) History of coronary artery stent placement: (4) Essential (primary) hypertension: (5) Hyperlipemia: QUALIFIERS: Hyperlipidemia type: unspecified Qualified Code(s): E78.5 - Hyperlipidemia, unspecified (6) Third degree heart block: PLAN: 81-year-old patient with known cardiac history History of CAD with prior non-STEMI with PCI and stent of the left circumflex artery using drug-eluting stent to the distal circumflex This was in December 25, 2019 This presentation with symptoms of lightheadedness dizziness and symptoms of chest pain With a clinical diagnosis of non-STEMI and elevated cardiac biomarkers with high sensitive troponin I and a clear evidence of cigarette-grade AV block/ Cardiac recommendation plan; 1. Patient currently on medical therapy with heparin, aspirin 2. We will hold the Plavix and beta-ino carvedilol 3. We will continue on a statin and use of hydralazine for blood pressure control Patient stable clinically no further episode of dizziness or lightheadedness and no symptoms of chest pain 4. Patient will be evaluated with left heart catheterization to assess patency of the circumflex stent as well he will need permanent pacemaker implant/PPM I will discuss cardiac care plan and his current presentation and management with his primary picker and sorter load and unload Dr. Pittman Cardiac care plan and recommendation discussed in detail with the patient, medical team and the nursing staff. HPI Consult Data Date of Consult: 06/21/21 HPI Narrative Reason for Consultation: Complete heart block/CAD,NSTEMI HPI Narrative: MICHAEL HENRY, is a 81 M who presents [facility] Medical History Accelerated hypertension Atherosclerosis of coronary artery without angina pectoris BPH (benign prostatic hyperplasia) Elevated troponin Essential (primary) hypertension History of non-ST elevation myocardial infarction (NSTEMI) (12/24/19) Hyperlipemia Hypokalemia Left ventricular diastolic dysfunction Multiple premature ventricular complexes Home Medications finasteride 5 mg PO DAILY 12/16/14 [History Last Taken 06/20/21] atorvastatin 40 mg tablet 40 mg PO QHS #90 tab 12/26/19 [Rx Last Taken 06/19/21] losartan 100 mg tablet 100 mg PO DAILY #90 tab 12/26/19 [Rx Last Taken 06/19/21] aspirin 81 mg PO DAILY #0 05/02/20 [Rx Last Taken 06/20/21] clopidogrel 75 mg PO DAILY #0 05/02/20 [Rx Last Taken 06/20/21] cholecalciferol (vitamin D3) 50 mcg (2,000 unit) capsule 50 mcg PO DAILY 02/05/21 [History Last Taken 06/20/21] carvedilol 12.5 mg tablet 12.5 mg PO BID #180 tab 04/08/21 [Rx Last Taken 06/20/21 10:00] isosorbide mononitrate 30 mg PO DAILY 06/20/21 [History Last Taken 06/20/21] Allergy/AdvReac Type Severity Reaction Status Date / Time No Known Allergies Allergy Verified 06/20/21 17:04 Family History Father Heart disease Mother Hypertension Surgical History History of cataract surgery History of coronary artery stent placement (12/25/19) History of left heart catheterization (12/08/20) History of tonsillectomy Social History Smoking Status: Former smoker substance use type: does not use Physical Exam Narrative Patient seen and evaluated at bedside along with the nursing staff Alert orientated x3 Not in acute distress desk monitor showed evidence of complete heart block with a heart rate of around 50 Cardiovascular examination S1-S2 normal, no pericardial rub no gallop placed and no systolic or diastolic murmur Chest examination clear to auscultation bilateral. Examination lower extremity no clubbing no cyanosis no lower extremity edema Central nervous system exam no focal neurological deficit Objective Data Vital Signs: Vital Signs Temp Pulse Resp BP Pulse Ox 98.1 F 56 L 18 133/55 H 99 06/21/21 08:01 06/21/21 08:01 06/21/21 08:01 06/21/21 08:01 06/21/21 08:01 Oxygen Delivery Method Room Air Weight: 180 lb 5.41 oz Body Mass Index (BMI) 26.6 Intake & Output: Intake and Output for Last 24 Hours 06/19/21 06/20/21 06/21/21 23:59 23:59 23:59 Intake Total 240 / 240 100 / 100 Output Total 1500 / 1500 Balance 240 / 240 -1400 / -1400 Lab / Micro Data Result Diagrams: 06/21/21 05:36 06/21/21 05:36 Labs: Laboratory Results - last 24 hr 06/20/21 17:44: WBC 10.9, RBC 4.33 L, Hgb 13.8, Hct 40.1, MCV 92.6, MCH 31.9, MCHC 34.4, RDW Std Deviation 40.9, RDW Coeff of Yoan 12.0, Plt Count 315, MPV 9.7, Immature Gran % (Auto) 0.600, Neut % (Auto) 67.4, Lymph % (Auto) 20.2, Lamoure % (Auto) 10.0, Eos % (Auto) 1.3, Baso % (Auto) 0.5, Absolute Neuts (auto) 7.3, Absolute Lymphs (auto) 2.20, Nucleated RBC % 0 06/20/21 17:44: PT 13.6, INR 1.1, APTT 32.2 06/20/21 17:44: Sodium 134 L, Potassium 4.4, Chloride 101, Carbon Dioxide 24.0, Anion Gap 9, BUN 20 H, Creatinine 1.05, Estim Creat Clear Calc 54.24, Est GFR (MDRD) Af Amer 87, Est GFR (MDRD) Non-Af 72, BUN/Creatinine Ratio 19.0, Glucose 177 H, Calcium 9.6, Magnesium 2.2, Troponin I High Sens 98 H 06/20/21 21:32: Troponin I High Sens 520 H* 06/21/21 01:24: Troponin I High Sens 802 H* 06/21/21 05:36: WBC 13.9 H, RBC 4.37 L, Hgb 14.0, Hct 40.0, MCV 91.5, MCH 32.0, MCHC 35.0, RDW Std Deviation 40.6, RDW Coeff of Yoan 12.1, Plt Count 306, MPV 9.3, Immature Gran % (Auto) 0.400, Neut % (Auto) 74.3 H, Lymph % (Auto) 13.2 L, Lamoure % (Auto) 11.3 H, Eos % (Auto) 0.4, Baso % (Auto) 0.4, Absolute Neuts (auto) 10.3 H, Absolute Lymphs (auto) 1.83, Nucleated RBC % 0, Diff Path Review January06/21/21 05:36: Sodium 134 L, Potassium 3.9, Chloride 103, Carbon Dioxide 22.0, Anion Gap 9, BUN 16, Creatinine 0.86, Estim Creat Clear Calc 66.22, Est GFR (MDRD) Af Amer 109, Est GFR (MDRD) Non-Af 90, BUN/Creatinine Ratio 18.6, Glucose 182 H, Calcium 9.4 06/21/21 05:36: Troponin I High Sens 790 H* Cardiology Labs/Tests 06/20/21 17:44: WBC 10.9, RBC 4.33 L, Hgb 13.8, Hct 40.1, MCV 92.6, MCH 31.9, MCHC 34.4, Plt Count 315, MPV 9.7, Immature Gran % (Auto) 0.600, Neut % (Auto) 67.4, Lymph % (Auto) 20.2, Lamoure % (Auto) 10.0, Eos % (Auto) 1.3, Baso % (Auto) 0.5, Absolute Neuts (auto) 7.3, Nucleated RBC % 0 06/20/21 17:44: PT 13.6, INR 1.1, APTT 32.2 06/20/21 17:44: Sodium 134 L, Potassium 4.4, Chloride 101, Carbon Dioxide 24.0, Anion Gap 9, BUN 20 H, Creatinine 1.05, Est GFR (MDRD) Af Amer 87, Est GFR (MDRD) Non-Af 72, BUN/Creatinine Ratio 19.0, Glucose 177 H, Calcium 9.6, Magnesium 2.2 06/21/21 05:36: WBC 13.9 H, RBC 4.37 L, Hgb 14.0, Hct 40.0, MCV 91.5, MCH 32.0, MCHC 35.0, Plt Count 306, MPV 9.3, Immature Gran % (Auto) 0.400, Neut % (Auto) 74.3 H, Lymph % (Auto) 13.2 L, Lamoure % (Auto) 11.3 H, Eos % (Auto) 0.4, Baso % (Auto) 0.4, Absolute Neuts (auto) 10.3 H, Nucleated RBC % 0 06/21/21 05:36: Sodium 134 L, Potassium 3.9, Chloride 103, Carbon Dioxide 22.0, Anion Gap 9, BUN 16, Creatinine 0.86, Est GFR (MDRD) Af Amer 109, Est GFR (MDRD) Non-Af 90, BUN/Creatinine Ratio 18.6, Glucose 182 H, Calcium 9.4 Rhythm: Complete heart block EKG: Complete heart block/third-degree AV block Radiography Diagnostic Testing: Radiology Impression Chest X-Ray 06/20/21 17:45 IMPRESSION: No radiographic evidence of acute cardiopulmonary disease and unchanged when compared to 03/23/2021. Electronically Signed: Bebeot Klein MD at 18:59 EDT , Service support ,
--- NOTE | 2021-06-21 16:00 | PN.HOSP_ITS ---
Subjective Subjective Feels fine. Objective Data Objective Data Vital Signs: Vital Signs Temp Pulse Resp BP Pulse Ox 36.6 C 56 L 18 123/56 H 98 06/21/21 14:58 06/21/21 14:58 06/21/21 14:58 06/21/21 14:58 06/21/21 14:58 Oxygen Delivery Method Room Air Weight: 81.8 kg Body Mass Index (BMI) 26.6 Intake & Output: Intake and Output for Last 24 Hours 06/19/21 06/20/21 06/21/21 23:59 23:59 23:59 Intake Total 240 / 240 100 / 100 Output Total 1500 / 1500 Balance 240 / 240 -1400 / -1400 Lab / Micro Data Result Diagrams: 06/21/21 05:36 06/21/21 05:36 Labs: Laboratory Results - last 24 hr 06/20/21 17:44: WBC 10.9, RBC 4.33 L, Hgb 13.8, Hct 40.1, MCV 92.6, MCH 31.9, MCHC 34.4, RDW Std Deviation 40.9, RDW Coeff of Yoan 12.0, Plt Count 315, MPV 9.7, Immature Gran % (Auto) 0.600, Neut % (Auto) 67.4, Lymph % (Auto) 20.2, Benson % (Auto) 10.0, Eos % (Auto) 1.3, Baso % (Auto) 0.5, Absolute Neuts (auto) 7.3, Absolute Lymphs (auto) 2.20, Nucleated RBC % 0 06/20/21 17:44: PT 13.6, INR 1.1, APTT 32.2 06/20/21 17:44: Sodium 134 L, Potassium 4.4, Chloride 101, Carbon Dioxide 24.0, Anion Gap 9, BUN 20 H, Creatinine 1.05, Estim Creat Clear Calc 54.24, Est GFR (MDRD) Af Amer 87, Est GFR (MDRD) Non-Af 72, BUN/Creatinine Ratio 19.0, Glucose 177 H, Calcium 9.6, Magnesium 2.2, Troponin I High Sens 98 H 06/20/21 21:32: Troponin I High Sens 520 H* 06/21/21 01:24: Troponin I High Sens 802 H* 06/21/21 05:36: WBC 13.9 H, RBC 4.37 L, Hgb 14.0, Hct 40.0, MCV 91.5, MCH 32.0, MCHC 35.0, RDW Std Deviation 40.6, RDW Coeff of Yoan 12.1, Plt Count 306, MPV 9.3, Immature Gran % (Auto) 0.400, Neut % (Auto) 74.3 H, Lymph % (Auto) 13.2 L, Benson % (Auto) 11.3 H, Eos % (Auto) 0.4, Baso % (Auto) 0.4, Absolute Neuts (auto) 10.3 H, Absolute Lymphs (auto) 1.83, Nucleated RBC % 0, Diff Path Review January06/21/21 05:36: Sodium 134 L, Potassium 3.9, Chloride 103, Carbon Dioxide 22.0, Anion Gap 9, BUN 16, Creatinine 0.86, Estim Creat Clear Calc 66.22, Est GFR (MDRD) Af Amer 109, Est GFR (MDRD) Non-Af 90, BUN/Creatinine Ratio 18.6, Glucose 182 H, Calcium 9.4 06/21/21 05:36: Troponin I High Sens 790 H* Radiography Diagnostic Testing: Radiology Impression Chest X-Ray 06/20/21 17:45 IMPRESSION: No radiographic evidence of acute cardiopulmonary disease and unchanged when compared to 03/23/2021. Electronically Signed: Bebeto Klein MD at 18:59 EDT , Service support , Physical Exam Const alert Resp normal respiratory effort, no retractions, no use of accessory muscles and clear to auscultation bilaterally Cardio Cardio Narrative: Regular rate irregular rhythm. GI normal to inspection, nondistended, normoactive bowel sounds, soft to palpation, non-tender and non-distended Assessment & Plan Assessment/Plan (1) Third degree heart block: (2) NSTEMI, initial episode of care: PLAN: 1. Third-degree heart block Ongoing but rate is improved Continue to hold beta-ino plan is for permanent pacemaker 2. Non-STEMI May be demand Plan for left heart catheterization Continue aspirin, atorvastatin, heparin drip Clopidogrel on hold 3. VTE prophylaxis: Not indicated as patient is anticoagulated Charges/Coding Visit Charges Inpatient E&M: 60258 Subs Hosp L2
[2021-06-21] MEDS: Atorvastatin Calcium 40 MG Tablet PO (21:55)
[2021-06-21] MEDS: Losartan Potassium 100 MG Tablet PO (21:55)
[2021-06-22] VITALS (20 sets, daily range): BP systolic 119–199; BP diastolic 55–93; PULSE 47–89; RESP 15–18; TEMP 36.6–36.7; O2SAT 97–100
[2021-06-22 02:20] LABS: Partial Thromboplast Time 102.5 Seconds (24.1-36.2)
[2021-06-22] MEDS: Finasteride 5 MG Tablet PO (09:28)
[2021-06-22] MEDS: Isosorbide Mononitrate 30 MG Tablet PO (09:28)
[2021-06-22] MEDS: Aspirin E.C. 81 MG Tablet PO (09:28)
--- NOTE | 2021-06-22 10:17 | CASEMGMT ---
[facility], the following are in-network tertiary facilities: [facility], [place], [facility], [facility], [facility], [facility], and . Dwight ORELLANA CM
--- NOTE | 2021-06-22 11:19 | CASEMGMT ---
REYNA RUBY assessment: Face to Face with patient for initial transition planning/care coordination assessment. REYNA RUBY introduced self and role at [facility], pt voices understanding and consents to assessment. Pt is sitting up in chair in no distress. Pt is A/Ox4 and answers all questions appropriately. Care providers, pharmacy, and demographics verified. Presentation: Pt c/o chest pain initiated by pressure and slower heart rate-SOB/dizziness w/ exertion Admitting dx: NSTEMI, tsering PCP: Orly Specialists: Toya, cardio Preferred Pharmacy: [facility] [place] Insurance: [facility] Prescription Benefit: [facility] Living Will/HPOA: Pt states has LW/HPOA and is aware that they are not on file at [facility]. Pt's , Cheryl Lindquist, is HPOA. LNOK: Cheryl Lindquist, /HPOA; Tiburcio Lindquist, son Living Arrangements: Pt states lives with in home and states no concerns at home. Pt states is independent with ADL's. Transportation: Pt states drives self and states no transportation concerns. DME/HHC: Pt states has a BP cuff and states no need for any further DME. Pt states no hx of HHC or SNF in the past. Pt states no concerns with going home at time of discharge. Pt is retired. Pt states does not smoke cigarettes or drink ETOH. Pt states no further concerns/needs. CM to follow for any further discharge planning/needs. Advised pt to ask for CM if any further questions/concerns/needs arise, voices understanding. Pt Goal: Home Plan[place] REYNA RUBY
--- NOTE | 2021-06-22 12:55 | NURSING ---
Gave report to Eveline ORELLANA in prosthetic lab technician
[2021-06-22 12:56] LABS: Pathologist Review Reviewed
--- NOTE | 2021-06-22 15:24 | PCM.OPRPT ---
Problems Associated Problem List Diagnoses (1) Problem with vascular access: Report of Operation Date of Procedure: 06/22/21 Pre-Operative Diagnosis: Need for left subclavian vein vascular access for pacemaker placement Post-Operative Diagnosis: Same Surgery/Procedure Performed:: Left subclavian vein percutaneous vascular access to assist with subsequent pacemaker placement Description of Surgical Findings:: I was asked to see the patient on the special procedures table per Dr. Albaro Pittman after attempts to gain access to his left subclavian vein for placing a pacemaker was not successful. I introduced myself to the patient. I then inspected the area of the previous attempts saw slight hematoma in the left subclavicular area. The patient had significant bony prominences. I briefly attempted ultrasound inspection and color inspection only to find very little. I added approximately 5 cc of 2% lidocaine. I then utilized a micropuncture needle and based upon landmarks carefully advanced needle at the outer third portion of the clavicle. Fortunately with the very first pass I was able to get venous return. I advanced a micropuncture wire. Checked with fluoroscopy and then advanced a micropuncture sheath. I then exchanged out for an 035 J-wire. Fluoroscopy demonstrated good positioning. The vein now was accessed did not place an additional catheter as the wire access now would be utilized to assist with pacemaker placement. The patient tired procedure well. Blood loss minimal. Follow-up pacemaker identification per Dr. Albaro Guzman M.D., F.A.C.S. Surgeon: Tyler Guzman Type of Anesthesia: Local
--- NOTE | 2021-06-22 15:49 | CL.IE_ITS ---
Patient: MICHAEL HENRY Study Date: 06/22/2021 Performing: Albaro Pittman MD : [id number] Age: 81 Gender: male PROCEDURES PERFORMED PG46-[id number] PACER INSERT+DUAL LEADS INDICATIONS Complete Heart Block PROCEDURE DETAILS The patient was brought to the Catheterization Lab in the postabsorptive nonsedated state. Infor med consent was obtained prior to the procedure. Local anesthetic was given subcutaneously to the le ft subclavian region with Lidocaine 2%. Access was achieved and a guidewire was advanced into the lef t subclavian vein by Dr. Guzman. Incision was made to the left subclavicular area. PPM ventricular mk d was inserted / positioned to right ventricular. The sheath was then removed. PPM atrial lead was in serted / positioned to the right atrial appendage. The Atrial lead sutured in place with 2-0 Silk. Th e Ventricular PM lead sutured in place with 2-0 Silk. Device pocket was irrigated with antibiotic. PP M generator was attached to the lead(s) and inserted into the pocket. PPM atrial lead testing perform ed. PPM ventricular lead testing performed. PPM ventricular lead testing performed. Subcutaneous clos ure was completed with 3-0 Vicryl. Skin closure was completed with 4-0 Vicryl. Instrument, sponge, and needle counts were noted to be normal. The patient tolerated the procedure well. Estimated Blood Loss: 10 ml's IMPLANTED / EX-PLANTED DEVICES IMPLANTED DEVICE(S): PPM Ventricular lead - Bilingual Account Manager: [employer]onic, Model # 4076-58 , Serial # [id number] PPM Atrial lead - Bilingual Account Manager: [employer], Model # 4076 , Serial # [id number] PPM Generator - Bilingual Account Manager: [employer], Model # [id number] , Serial # [id number] DEVICE PARAMETERS ATRIAL LEAD PARAMETERS: P wave- 1.25 (mV) threshold- 0.75 (V) impedence- 570 (OHMS) 10V test, no diaphragmatic capture VENTRICULAR LEAD PARAMETERS: R wave- 6.5 (mV) threshold- 0.875 (V) impedence- 1026 (OHMS) 10V test, no diaphragmatic capture DEVICE PARAMETERS: Mode- DDD Lower rate- 60 Upper rate- 130 CONCLUSIONS / RECOMMENDATIONS Device Conclusions: Successful implantation of a dual chamber pacemaker Device Recommendations: Follow up with Primary Care Physician PROCEDURE MEDICATIONS Versed 1 mg IV Fentanyl 50 mcg IV Versed 1 mg IV Versed 1 mg IV Versed 1 mg IV Versed 1 mg IV Fentanyl 25 mcg IV Versed 1 mg IV Versed 1 mg IV Oxygen: 2 L/min via nasal cannula Ancef 2 Gm IV @ 06/22/2021 13:38:42 Signed By Albaro Pittman MD On 06/22/2021 15:48:45 Albaro Pittman MD
--- NOTE | 2021-06-22 16:28 | PCM.PN.HOSP ---
Subjective Subjective Had a brief period of feeling lightheaded this morning but subsequent resolved. Objective Data Objective Data Vital Signs: Vital Signs Temp Pulse Resp BP Pulse Ox 36.7 C 55 L 16 138/59 H 100 06/22/21 11:28 06/22/21 11:28 06/22/21 11:28 06/22/21 11:28 06/22/21 11:28 Oxygen Delivery Method Room Air Weight: 81.8 kg Body Mass Index (BMI) 26.6 Intake & Output: Intake and Output for Last 24 Hours 06/20/21 06/21/21 06/22/21 23:59 23:59 23:59 Intake Total 240 / 240 181.6 / 181.6 91.10 / 91.10 Output Total 1500 / 1500 Balance 240 / 240 -1318.4 / -1318.4 91.10 / 91.10 Lab / Micro Data Result Diagrams: 06/21/21 05:36 06/21/21 05:36 Labs: Laboratory Results - last 24 hr 06/21/21 05:36: Diff Path Review Reviewed 06/21/21 17:03: APTT 205.0 H* 06/22/21 01:49: APTT 102.5 H* Physical Exam Const alert Resp normal respiratory effort, no retractions, no use of accessory muscles and clear to auscultation bilaterally Cardio Cardio Narrative: Irregularly irregular GI normal to inspection, nondistended, normoactive bowel sounds, soft to palpation, non-tender and non-distended Extremity normal to inspection Assessment & Plan Assessment/Plan (1) Third degree heart block: (2) NSTEMI, initial episode of care: PLAN: 1. Third-degree heart block Status post dual-chamber permanent pacemaker placed on June 22. 2. Non-STEMI May be demand Plan for left heart catheterization Continue aspirin, atorvastatin, heparin drip Clopidogrel on hold 3. VTE prophylaxis: Not indicated as patient is anticoagulated Charges/Coding Visit Charges Inpatient E&M: 63025 Subs Hosp L2
[2021-06-22] MEDS: 0.9% Normal Saline 1,000 ML 75 ML IV (16:34)
--- NOTE | 2021-06-22 17:14 | PCM.PN.CARD ---
Subjective Subjective Patient seen and evaluated Objective Data Vital Signs: Vital Signs Temp Pulse Resp BP Pulse Ox 97.9 F 68 18 169/76 H 98 06/22/21 16:30 06/22/21 16:45 06/22/21 16:45 06/22/21 16:45 06/22/21 16:45 Oxygen Delivery Method Room Air Weight: 180 lb 5.41 oz Body Mass Index (BMI) 26.6 Intake & Output: Intake and Output for Last 24 Hours 06/20/21 06/21/21 06/22/21 23:59 23:59 23:59 Intake Total 240 / 240 181.6 / 181.6 91.10 / 91.10 Output Total 1500 / 1500 500 / 500 Balance 240 / 240 -1318.4 / -1318.4 -408.90 / -408.90 Lab / Micro Data Result Diagrams: 06/21/21 05:36 06/21/21 05:36 Labs: Laboratory Results - last 24 hr 06/21/21 05:36: Diff Path Review Reviewed 06/21/21 17:03: APTT 205.0 H* 06/22/21 01:49: APTT 102.5 H* Cardiology Labs/Tests 06/21/21 17:03: APTT 205.0 H* 06/22/21 01:49: APTT 102.5 H* Rhythm: EKG: ECHO: Stress Test: Cardiac Cath: PCI: CT Surgery: Holter monitor: EPS: PPM: CXR: Chest CT Scan: Physical Exam Const alert, oriented x3 and no apparent distress General Appearance: cooperative HEENT hearing grossly normal bilaterally Head and Scalp: atraumatic Eyes EOMs intact bilaterally Neck General: normal visual inspection Chest inspection of chest normal and palpation of chest normal Resp normal respiratory effort Auscultation: clear to auscultation bilaterally Cardio regular rate, regular rhythm, S1 normal heart sound and S2 normal heart sound Jugular Venous Distention: JVD GI normal to inspection, nondistended, normoactive bowel sounds Extremity normal capillary refill and no pedal edema Peripheral Pulses: Yes pulses 2+ throughout and femoral pulses present Skin no rashes or lesions noted Neuro oriented x3 and CN's II-XII intact bilaterally Psych Appearance: grossly normal and appropriate Assessment & Plan Assessment/Plan (1) Third degree heart block: PLAN: Patient presented with third-degree heart block and underwent permanent pacemaker implantation today. This will be evaluated tomorrow and further recommendations made. (2) NSTEMI, initial episode of care: PLAN: Patient presented with abnormal cardiac enzymes. He also underwent a cardiac catheterization which demonstrated minimal coronary artery disease involving the nondominant right coronary artery. The previously placed stent in the left circumflex artery was noted to be patent. Plan will be to continue current medical therapy. (3) History of coronary artery stent placement: PLAN: Patient is status post previous coronary stenting as noted above. We will not make any changes. (4) Essential (primary) hypertension: PLAN: Patient does have a history of hypertension. We will continue with aggressive Thank you for allowing me to participate in the care of your patient. Please don't hesitate to call if any issues arise. medical therapy.
--- NOTE | 2021-06-22 17:42 | CL.D_ITS ---
Patient Name: MICHAEL HENRY Study Date: 06/22/2021 Performing: Albaro Pittman MD Ht: 69 inches 175 cm : 1940 Wt: 181 lbs 82 kg Age: 81 Gender: male BSA: 1.98 PROCEDURE(S) PERFORMED [id number] CLINICAL PROFILE AND INDICATIONS Indications: Suspected CAD Heart Failure: None Stress/Imaging Stress/Image Study Performed: No CONCLUSIONS Non obstructive coronary arteries RECOMMENDATIONS Medical therapy DESCRIPTION OF PROCEDURE The patient arrived to the procedure lab. The risks and benefits of the procedure as well as a full d escription of our services here and current unavailability of surgical backup were fully explained to the patient and/or their significant other prior to the catheterization. The Timeout was completed, verifying the correct patient and procedure. The patient's procedural site was prepped and draped in the usual fashion. Local anesthetic was given subcutaneously to right radial region with Lidocaine 2% . Using a modified Seldinger technique, arterial access was obtained via the right radial artery, a 6 Fr sheath was inserted. Left Coronary Artery selective angiography was performed in multiple views u sing a 5 Fr. 4.0 [place] catheter. Right Coronary Artery selective angiography was then performed in mu ltiple views using a 5 Fr. 4.0 [place] catheter.The arterial sheath was pulled and a TR Band was applie d for hemostasis. Sheath flushed prior to removal 11cc air inserted. CORONARY ANGIOGRAPHY DOMINANCE: Left Dominant LEFT HEART ASSESSMENT Left Ventricular Ejection Fraction: by Echo 55 % Normal LV wall motion Normal Left Ventricular systolic function LEFT MAIN: Angiographically normal LEFT ANTERIOR DESCENDING ARTERY: Mild luminal irregularities less than 30% CIRCUMFLEX ARTERY: Mild luminal irregularities less than 30% RAMUS: Mild luminal irregularities RIGHT CORONARY ARTERY: Moderate luminal irregularities up to 50% COMPLICATIONS No Complications PROCEDURE MEDICATIONS Fentanyl 25 mcg IV Oxygen: 2 L/min via nasal cannula Heparin given IA 06/22/2021 15:54:45 Verapamil 2.5mg, Ntg 100mcgs, 3000 units of Heparin given IA 06/22/2021 15:54:45 IV Bolus: .9 NaCl 450 ml total 06/22/2021 16:06:47 SUMMARY OF HEMODYNAMIC DATA Time AIR REST ECG 15:51:17 AO 143/67 (97) SA 15:59:57 Signed By Albaro Pittman MD On 06/22/2021 5:41:05 PM Albaro Pittman MD
[2021-06-22] MEDS: hydrALAZINE 20 MG/ML Vial 10 MG IV (18:20)
[2021-06-22] MEDS: Carvedilol 12.5 MG Tablet PO (22:30)
[2021-06-22] MEDS: Atorvastatin Calcium 40 MG Tablet PO (22:30)
[2021-06-22] MEDS: Losartan Potassium 100 MG Tablet PO (22:30)
--- NOTE | 2021-06-23 | NURSING ---
Assumed care of pt at this time.
[2021-06-23 02:15] VITALS: BP 132/62; PULSE 66; RESP 18; TEMP 36.8; O2SAT 99
[2021-06-23 03:00] VITALS: PULSE 64
--- NOTE | 2021-06-23 05:55 | RAD_ITS ---
EXAM: XR CHEST, 3 VIEWS : 1940 CLINICAL INDICATION: Post permanant ICD/Pacemaker -- inspiration/expiration. Arms Down. Wet read to MD TECHNIQUE: Frontal, lateral and one additional view of the chest. This report was created using [employer] report generation technology. COMPARISON: 06/20/21 FINDINGS: LUNGS AND PLEURAL SPACES: No pneumothorax identified. No effusion. HEART: Unremarkable. Cardiac silhouette not enlarged. MEDIASTINUM: Central airways and mediastinal contour are unremarkable. BONES/JOINTS: Unremarkable. SOFT TISSUES: Unremarkable. TUBES, LINES AND DEVICES: Left chest pacer with leads in the right atrium and right ventricle. RAD/Chest 3 View IMPRESSION: 1. Left chest pacer with leads in the right atrium and right ventricle. 2. No pneumothorax identified. at 0758 Reported and signed by: Jun Huynh MD Electronically Signed: Jun Huynh MD at 7:57 EDT Tel , Service support ,
[2021-06-23] MEDS: 0.9% Normal Saline 1,000 ML 75 ML IV (05:56)
[2021-06-23 07:02] VITALS: PULSE 72
[2021-06-23 08:15] VITALS: BP 135/65; PULSE 63; RESP 16; TEMP 36.7; O2SAT 99
[2021-06-23] MEDS: Aspirin E.C. 81 MG Tablet PO (08:21)
[2021-06-23] MEDS: Cholecalciferol (VIT D3) 25 MCG TABLET (1,000 UNITS) 50 MCG PO (08:21)
[2021-06-23] MEDS: Carvedilol 12.5 MG Tablet PO (08:21)
[2021-06-23] MEDS: Finasteride 5 MG Tablet PO (08:21)
--- NOTE | 2021-06-23 08:31 | PN.CARD_ITS ---
Subjective Subjective Patient seen and evaluated. Appears to be doing better. Objective Data Vital Signs: Vital Signs Temp Pulse Resp BP Pulse Ox 98.1 F 63 16 135/65 H 99 06/23/21 08:15 06/23/21 08:15 06/23/21 08:15 06/23/21 08:15 06/23/21 08:15 Oxygen Delivery Method Room Air Weight: 180 lb 5.41 oz Body Mass Index (BMI) 26.6 Intake & Output: Intake and Output for Last 24 Hours 06/21/21 06/22/21 06/23/21 23:59 23:59 23:59 Intake Total 181.6 / 181.6 331.10 / 331.10 1567 / 1567 Output Total 1500 / 1500 900 / 900 350 / 350 Balance -1318.4 / -1318.4 -568.90 / -568.90 1217 / 1217 Lab / Micro Data Result Diagrams: 06/21/21 05:36 06/21/21 05:36 Labs: Laboratory Results - last 24 hr 06/21/21 05:36: Diff Path Review Reviewed Cardiology Labs/Tests Rhythm: EKG: ECHO: Stress Test: Cardiac Cath: PCI: CT Surgery: Holter monitor: EPS: PPM: CXR: Chest CT Scan: Radiography Diagnostic Testing: Radiology Impression Echocardiogram 06/21/21 09:50 Interpretation Summary Mild (1+) aortic valve insufficiency. Pulmonary artery systolic pressure is 28 mmHg. Normal LV size. Left ventricular systolic function is normal. The estimated ejection fraction is 60 %. Contrast injection was performed. Ordering Physician: Kraig Rodriguez Referring Physician: Evelio Villalba Performed By: Isaac Mackey RCS Chest X-Ray 06/23/21 05:55 IMPRESSION: 1. Left chest pacer with leads in the right atrium and right ventricle. 2. No pneumothorax identified. at 0758 Reported and signed by: Jun Huynh MD Electronically Signed: Jun Huynh MD at 7:57 EDT Tel , Service support , Physical Exam Const alert, oriented x3 and no apparent distress General Appearance: cooperative HEENT hearing grossly normal bilaterally Head and Scalp: atraumatic Eyes EOMs intact bilaterally Neck General: normal visual inspection Chest inspection of chest normal and palpation of chest normal Resp normal respiratory effort Auscultation: clear to auscultation bilaterally Cardio regular rate, regular rhythm, S1 normal heart sound and S2 normal heart sound Jugular Venous Distention: JVD GI normal to inspection, nondistended, normoactive bowel sounds Extremity normal capillary refill and no pedal edema Peripheral Pulses: Yes pulses 2+ throughout and femoral pulses present Skin no rashes or lesions noted Neuro oriented x3 and CN's II-XII intact bilaterally Psych Appearance: grossly normal and appropriate Assessment & Plan Assessment/Plan (1) Third degree heart block: PLAN: Patient presented with third-degree heart block and underwent permanent pacemaker implantation . Pacer check demonstrated normal pacemaker function and chest x-ray is without pneumothorax. The patient will be discharged for outpatient follow-up. (2) NSTEMI, initial episode of care: PLAN: Patient presented with abnormal cardiac enzymes. He also underwent a cardiac catheterization which demonstrated minimal coronary artery disease involving the nondominant right coronary artery. The previously placed stent in the left circumflex artery was noted to be patent. Plan will be to continue current medical therapy. (3) History of coronary artery stent placement: PLAN: Patient is status post previous coronary stenting as noted above. We will not make any changes. (4) Essential (primary) hypertension: PLAN: Patient does have a history of hypertension. We will continue with aggressive Thank you for allowing me to participate in the care of your patient. Please don't hesitate to call if any issues arise. medical therapy.
--- NOTE | 2021-06-23 08:32 | PCM.DC ---
Discharge Instructions Diet Discharge Diet: No restrictions (as you feel able. No excessive stretching. No lifting your arm over your head (keep elbow below shoulder level) until seen for your pacemaker check. Do not lift your elbow away from your side until you are seen for your first visit. Keep the arm sling on if it helps remind you not to lift your arm.) Activity Additional Activity Instructions:: May shower or bathe on []. Do not scrub the incision or soak in the tub. Just wash with soap and let the water run over the incision. Gently pat dry with towel. Medications: Take your pain medication as directed. Refer to your discharge instruction sheet for a list of medications you are to take. Dressing / Incision Call your doctor if your incision/area has: Continuous Slow Oozing, Sudden Increased Bleeding, Increased Pain/ Swelling, Increased Redness, Foul Smelling Discharge and Swelling at the incision site Call your doctor if you observe: Fever of 101 or Higher, Shortness of breath, Dizziness, Fainting spells, Swelling in the ankles, Chest pain, Prolonged hiccupping and Increased palpitations (irregular heartbeat) Additional Dressing/Incision Instructions:: When dressing is removed, wash and dry incision. Keep covered with a light bandage if it is rubbing against your clothing. Do not cover the incision with an airtight bandage. Change the bandage daily. Do not remove steri strips. The strips will fall off on their own. Follow Up Care Please Follow Up With: Albaro Pittman MD When: Call [phone] for follow up. Follow-up in pacemaker clinic July 06 at 3 PM Test Results: Test results from this visit will be discussed in further detail at your follow-up appointment, if applicable. Discharge Plan Admission Admit Date/Time: 06/20/21 19:21 Attending Provider: Toni Ramirez Primary Care Provider: Evelio Villalba Consulting Providers: Kraig Rodriguez Discharge Orders/Prescriptions Prescriptions: No Action cholecalciferol (vitamin D3) 50 mcg (2,000 unit) capsule 50 mcg PO DAILY RF: 0 carvedilol [Coreg] 12.5 mg tablet 12.5 mg PO BID Qty: 180 RF: 3 finasteride 5 MG tablet 5 mg PO DAILY RF: 0 clopidogrel 75 MG tablet 75 mg PO DAILY Qty: 0 RF: 0 aspirin 81 MG tablet 81 mg PO DAILY Qty: 0 RF: 0 isosorbide mononitrate 30 mg tablet extended release 24 hr 30 mg PO DAILY RF: 0 atorvastatin 40 mg tablet 40 mg PO QHS Qty: 90 RF: 3 losartan 100 mg tablet 100 mg PO DAILY Qty: 90 RF: 3 Referrals / Follow Up: Evelio Villalba MD [Primary Care Provider] -
--- NOTE | 2021-06-23 10:26 | DS.PCM_ITS ---
Providers Date of Admission: 06/20/21 Primary Care Physician: Dr. Evelio Villalba MD Consultations 06/20/21 21:07 Consult: Cardiology Routine Consulting Provider: Kraig Rodriguez Reason for Consult: NSTEMI, Bradycardia EMERGENT Consult: No MD Notified: Yes Date Notified: 06/21/21 Time Notified: 07:42 Method of Notification: Text Reason For Visit: NSTEMI / WITH BRADYCARDIA Diagnosis Discharge Diagnosis (1) Third degree heart block: Status: Acute Code(s): I44.2 - Atrioventricular block, complete (2) NSTEMI, initial episode of care: Status: Acute Code(s): I21.4 - Non-ST elevation (NSTEMI) myocardial infarction (3) History of coronary artery stent placement: Status: Resolved Code(s): Z95.5 - Presence of coronary angioplasty implant and graft (4) Essential (primary) hypertension: Status: Chronic Code(s): I10 - Essential (primary) hypertension Medications at Discharge Home Medications finasteride 5 mg PO DAILY 12/16/14 atorvastatin 40 mg tablet 40 mg PO QHS #90 tab 12/26/19 losartan 100 mg tablet 100 mg PO DAILY #90 tab 12/26/19 aspirin 81 mg PO DAILY #0 05/02/20 clopidogrel 75 mg PO DAILY #0 05/02/20 cholecalciferol (vitamin D3) 50 mcg (2,000 unit) capsule 50 mcg PO DAILY 02/05/21 carvedilol 12.5 mg tablet 12.5 mg PO BID #180 tab 04/08/21 isosorbide mononitrate 30 mg PO DAILY 06/20/21 Hospital Course Operations None Procedures 2-D Echocardiogram, Cardiac catheterization and - (Dual chamber pacemaker) Summary of Care Provided Minutes Spent on Discharge: 32 Hospital Course: lightheadedness.81-year-old male presents with Patient was found to be in third-degree heart block. Patient had a non-STEMI and troponins peaked at 802. Patient underwent a dual-chamber permanent pacemaker on . Patient had no complications with t and a normal EF.hat. Left heart catheterization on the same day showed less than 30% stenosis The type II not ST ovation myocardial infarction likely type II event given the third-degree heart block. Patient has remained stable and will be discharged home in stable condition Physical Exam Const alert Cardio regular rate, regular rhythm, S1 normal heart sound and S2 normal heart sound GI normal to inspection, nondistended, normoactive bowel sounds, soft to palpation, non-tender and non-distended Neuro Sensorium / Orientation: awake and alert Weight / BMI Weight Weight: 81.8 kg Body Mass Index (BMI) 26.6 ABG / Lab / Microbiology Data Result Diagrams: 06/21/21 05:36 06/21/21 05:36 Laboratory: Laboratory Results - last 24 hr 06/21/21 05:36: Diff Path Review Reviewed Radiography Diagnostic Testing: Radiology Impression Echocardiogram 06/21/21 09:50 Interpretation Summary Mild (1+) aortic valve insufficiency. Pulmonary artery systolic pressure is 28 mmHg. Normal LV size. Left ventricular systolic function is normal. The estimated ejection fraction is 60 %. Contrast injection was performed. Ordering Physician: Kraig Rodriguez Referring Physician: Evelio Villalba Performed By: Isaac Mackey RCS Chest X-Ray 06/23/21 05:55 IMPRESSION: 1. Left chest pacer with leads in the right atrium and right ventricle. 2. No pneumothorax identified. at 0758 Reported and signed by: Jun Huynh MD Electronically Signed: Jun Huynh MD at 7:57 EDT Tel , Service support , D/C Instructions Discharge Diet: No restrictions (as you feel able. No excessive stretching. No lifting your arm over your head (keep elbow below shoulder level) until seen for your pacemaker check. Do not lift your elbow away from your side until you are seen for your first visit. Keep the arm sling on if it helps remind you not to lift your arm.) and Low fat / Low cholesterol Additional Activity Instructions: May shower or bathe on []. Do not scrub the incision or soak in the tub. Just wash with soap and let the water run over the incision. Gently pat dry with towel. Medications: Take your pain medication as directed. Refer to your discharge instruction sheet for a list of medications you are to take. Call your doctor if your incision/area has: Continuous Slow Oozing, Sudden Increased Bleeding, Increased Pain/ Swelling, Increased Redness, Foul Smelling Discharge and Swelling at the incision site Call your doctor if you observe: Fever of 101 or Higher, Shortness of breath, Dizziness, Fainting spells, Swelling in the ankles, Chest pain, Prolonged hiccupping and Increased palpitations (irregular heartbeat) Additional Dressing/Incision Instructions: When dressing is removed, wash and dry incision. Keep covered with a light bandage if it is rubbing against your clothing. Do not cover the incision with an airtight bandage. Change the bandage daily. Do not remove steri strips. The strips will fall off on their own. Please Follow Up With: Albaro Pittman MD When: Call [phone] for follow up. Follow-up in pacemaker clinic July 06 at 3 PM Meaningful Use Info Meaningful Use Diagnoses (Choose all that apply): AMI AMI/Post PCI/Angioplasty Aspirin given w/in 24hrs of arrival?: Yes ASA at discharge?: Yes Antiplatelet Therapy at Discharge:: Yes Statins at discharge?: Yes Theodore/ARB at discharge?: Yes Beta Eric at discharge?: Yes Done w/ Acute CA measure.: Yes Documented LVEF (%): 60 Discharge Plan Admission Admit Date/Time: 06/20/21 19:21 Primary Reason for Your Visit: 3rd degree heart block Attending Provider: Toni Ramirez Primary Care Provider: Evelio Villalba Consulting Providers: Kraig Rodriguez Instructions Patient Instructions: ED Chest Pain, Noncardiac Discharge Orders/Prescriptions Prescriptions: Continued cholecalciferol (vitamin D3) 50 mcg (2,000 unit) capsule 50 mcg PO DAILY RF: 0 carvedilol [Coreg] 12.5 mg tablet 12.5 mg PO BID Qty: 180 RF: 3 finasteride 5 MG tablet 5 mg PO DAILY RF: 0 clopidogrel 75 MG tablet 75 mg PO DAILY Qty: 0 RF: 0 aspirin 81 MG tablet 81 mg PO DAILY Qty: 0 RF: 0 isosorbide mononitrate 30 mg tablet extended release 24 hr 30 mg PO DAILY RF: 0 atorvastatin 40 mg tablet 40 mg PO QHS Qty: 90 RF: 3 losartan 100 mg tablet 100 mg PO DAILY Qty: 90 RF: 3 Referrals / Follow Up: Camila Reyes [Registered Nurse] - 07/06/21 3:00 pm (Pacer wound check. ) Albaro Pittman MD [STAFF PHYSICIAN] - 08/20/21 1:45 pm Evelio Villalba MD [Primary Care Provider] - Disposition Disposition (needs filled in before D/C Order can be placed): Home, Self Care Charges/Coding Visit Charges Inpatient E&M: 14134 Disch Hosp
--- NOTE | 2021-06-23 10:48 | PHA.DC.MR ---
Pharmacy Service has performed discharge medication reconciliation for this patient. The patient's discharge medication list was reviewed for discrepancies and discrepancies were resolved. Home Medications finasteride 5 mg PO DAILY 12/16/14 atorvastatin 40 mg tablet 40 mg PO QHS #90 tab 12/26/19 losartan 100 mg tablet 100 mg PO DAILY #90 tab 12/26/19 aspirin 81 mg PO DAILY #0 05/02/20 clopidogrel 75 mg PO DAILY #0 05/02/20 cholecalciferol (vitamin D3) 50 mcg (2,000 unit) capsule 50 mcg PO DAILY 02/05/21 carvedilol 12.5 mg tablet 12.5 mg PO BID #180 tab 04/08/21 isosorbide mononitrate 30 mg PO DAILY 06/20/21
== END 2021-06-23 12:25 | disposition home or self-care (01) | DRG 242 ==
LOC: ED 17:57 → PCU 20:23
PROVIDERS: Internal Medicine Interventional Cardiology; Admitting Provider Hospitalist; Emergency Provider Emergency Medicine; PCP Family Medicine
DX: I44.2 Atrioventricular block, complete (principal); I21.A1 Myocardial infarction type 2; I25.10 Atherosclerotic heart disease of native coronary artery without angina pectoris; I10 Essential (primary) hypertension; E78.5 Hyperlipidemia, unspecified; Z87.891 Personal history of nicotine dependence; Z95.5 Presence of coronary angioplasty implant and graft; Z82.49 Family history of ischemic heart disease and other diseases of the circulatory system; I16.0 Hypertensive urgency; Z79.02 Long term (current) use of antithrombotics/antiplatelets; Z79.82 Long term (current) use of aspirin
CPT/HCPCS: 33208; 36415; 71045; 71047; 80048; 83735; 84484; 85025; 85610; 85730; 93005; 93306; 93454; 97161; 97165; 99152; 99153; 99285; J7030; J7040; J7050; Q9957; Q9967; A4216; C1769; C1894; C8929; J3490

== ENCOUNTER 2022-02-25 20:18 | Observation (INO) | payer MEDICARE, SELFPAY ==
[2022-02-25] VITALS (8 sets, daily range): BP systolic 142–223; BP diastolic 54–88; PULSE 64–100; RESP 12–16; TEMP 36.4–36.9; O2SAT 94–99; BMI 26.1; BMI 26.5
[2022-02-25] MEDS: hydrALAZINE 20 MG/ML Vial 10 MG IV ×2 (21:01→21:25)
--- NOTE | 2022-02-25 21:15 | EDS_ITS ---
HPI History of Present Illness Chief Complaint: Hypertension Narrative Narrative: Patient presents with elevated blood pressure that began at 3:00 this morning. He has past medical history of hypertension for which he takes carvedilol 12.5 mg and losartan 50 mg orally. He has past medical history of a pacemaker. He states he sent a rhythm strip or evaluation and there was nothing wrong with his heart rhythm but he had elevated blood pressure. States he feels slight pressure in his head but denies any headache. No paresthesias. No nausea or vomiting. No chest pain or shortness of breath. He has been taking his blood pressure throughout the day, most recently 2 hours ago, where he had readings that ranged from over 200 systolic but 1 reading of 144 systolic. The others were in the 170s to 190s. He presents because of his labile, elevated blood pressure. [facility] Medical History Accelerated hypertension Atherosclerosis of coronary artery without angina pectoris BPH (benign prostatic hyperplasia) Elevated troponin Essential (primary) hypertension History of non-ST elevation myocardial infarction (NSTEMI) (06/21/21) Hyperlipemia Hypokalemia Left ventricular diastolic dysfunction Multiple premature ventricular complexes Third degree heart block (06/20/21) Home Medications aspirin 81 mg PO DAILY #0 05/02/20 [Rx Last Taken 06/20/21] cholecalciferol (vitamin D3) 50 mcg (2,000 unit) capsule 50 mcg PO DAILY 02/05/21 [History Last Taken 06/20/21] atorvastatin 40 mg tablet 40 mg PO QHS #90 tab 08/20/21 [Rx Last Taken Unknown] carvedilol 12.5 mg tablet 12.5 mg PO BID #180 tab 08/20/21 [Rx Last Taken Unknown] clopidogrel 75 mg tablet 75 mg PO DAILY #90 tab 08/20/21 [Rx Last Taken Unknown] finasteride 5 mg tablet 5 mg PO DAILY #90 tab 08/20/21 [Rx Last Taken Unknown] isosorbide mononitrate 30 mg tablet,extended release 24 hr 30 mg PO DAILY #90 tab 08/20/21 [Rx Last Taken Unknown] losartan 100 mg tablet 100 mg PO DAILY #90 tab 08/20/21 [Rx Last Taken Unknown] Allergy/AdvReac Type Severity Reaction Status Date / Time No Known Allergies Allergy Verified 02/25/22 20:24 Family History Father Heart disease Mother Hypertension Surgical History History of cataract surgery History of coronary artery stent placement (12/25/19) History of left heart catheterization (06/22/21) 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) History of tonsillectomy Social History Smoking Status: Former smoker substance use type: does not use ROS ROS ED ROS Narrative Constitutional: No fever, no chills. Elevated blood pressure readings. HEENT: No sore throat. No neck pain. No loss of vision. No rhinorrhea. Cardiovascular: No chest pain. No palpitations. No pedal edema. Respiratory: No cough, no shortness of breath. Abdominal: No abdominal pain. No nausea. No vomiting. Genitourinary: No dysuria. No hematuria. Musculoskeletal: No myalgias. No arthralgias. Neurologic: No headaches but slight pressure in forehead intermittently. No dizziness. No lightheadedness. Skin: No rash. No change in color. Psychiatric: No depression. No anxiety. EXAM Physical Exam Narrative Exam Narrative: Afebrile. Vital signs noted. HEENT: Normocephalic. Atraumatic. PERRL, EOMI. Neck soft and supple. No point tenderness or step off. Cardiovascular: Regular rate and rhythm. No murmurs, rubs, or gallops appreciated. Respiratory: No tachypnea. Lungs clear to auscultation bilaterally. Gastrointestinal: Abdomen soft, nontender, with normoactive bowel sounds. No rebound or guarding. Neurological: Awake. Alert. Nonfocal, nonlateralizing. Skin: No rash. Normal color. No pallor. Musculoskeletal: No pedal edema. Full range of motion extremities. Const Vital Signs: 02/25/22 20:19 02/25/22 20:31 02/25/22 21:46 Temperature 97.6 F L Temperature Source Temporal Pulse Rate 64 80 Respiratory Rate 15 16 Respiratory Effort Normal Non-Labored Respiratory Pattern Normal Blood Pressure 201/88 H 219/64 H Blood Pressure Mean 125 115 Pulse Ox 97 98 Oxygen Delivery Method Room Air Room Air 02/25/22 22:01 02/25/22 22:23 02/25/22 22:30 Temperature Temperature Source Pulse Rate 82 84 88 Respiratory Rate 12 12 Respiratory Effort Respiratory Pattern Blood Pressure 222/78 H 223/77 H 186/61 H Blood Pressure Mean 126 125 102 Pulse Ox 99 97 Oxygen Delivery Method Room Air Room Air 02/25/22 22:48 02/25/22 23:00 Temperature Temperature Source Pulse Rate 79 88 Respiratory Rate 15 12 Respiratory Effort Respiratory Pattern Blood Pressure 174/56 H 159/65 H Blood Pressure Mean 95 96 Pulse Ox 94 97 Oxygen Delivery Method Room Air Room Air MDM MDM MDM Narrative Medical decision making narrative: His blood pressure here is 201/88. Has a normal pulse of 64. He is afebrile. I do not feel CT scanning of the brain is indicated. I had a lengthy discussion with the patient regarding this, and he states he is not having headaches but more just slight pressure and he is currently asymptomatic. He was administered hydralazine 10 mg intravenously. His blood pressure actually increased to 235 systolic. He was given another dose of hydralazine 10 mg intravenously with elevated systolic blood pressure in the 220's. Laboratory work was obtained. CBC is grossly normal with a normal white count at 10.9, hemoglobin stable at 14.3, normal platelet count of 330. Sodium slightly low at 135 with normal potassium of 4.0. BUN elevated at 19 with normal creatinine of 1.0. LFTs are grossly unremarkable. Glucose elevated at 192 with a normal anion gap of 6. EKG demonstrates a paced rhythm at 86 bpm without ectopy or acute ST changes. He was started on Cardene drip at 5. Resultant blood pressure is in the 170s, it did dip down to 159/65. Patient was discussed with hospitalist, Dr. Bermeo, for observation in the PCU for optimal blood pressure control. Patient is in improved and stable condition. Lab Data Attestation: I reviewed the patient's lab results. Labs: Laboratory Results - last 24 hr 02/25/22 02/25/22 20:40 20:40 WBC 10.9 RBC 4.53 L Hgb 14.3 Hct 41.7 MCV 92.1 MCH 31.6 MCHC 34.3 RDW Std Deviation 41.0 RDW Coeff of Yoan 12.0 Plt Count 330 MPV 9.9 Immature Gran % (Auto) 0.400 Neut % (Auto) 67.2 Lymph % (Auto) 19.7 [place] % (Auto) 11.2 H Eos % (Auto) 1.1 Baso % (Auto) 0.4 Absolute Neuts (auto) 7.3 Absolute Lymphs (auto) 2.15 Nucleated RBC % 0 Sodium 135 L Potassium 4.0 Chloride 100 Carbon Dioxide 29.0 Anion Gap 6 BUN 19 H Creatinine 1.05 Estim Creat Clear Calc 54.24 Est GFR (MDRD) Af Amer 87 Est GFR (MDRD) Non-Af 72 BUN/Creatinine Ratio 18.1 Glucose 192 H Calcium 9.7 Total Bilirubin 0.70 AST 19 ALT 41 Alkaline Phosphatase 71 Total Protein 8.2 Albumin 4.4 Globulin 3.8 Albumin/Globulin Ratio 1.2 Discharge Plan Dx/Rx/DC Orders Clinical Impression: Uncontrolled hypertension, Hypertensive urgency, History of permanent cardiac pacemaker placement Disposition Disposition: Acute Care Hospital [facility]
--- NOTE | 2022-02-25 22:11 | EKG12_ITS ---
Test Reason : DYSRHYTHMIA Blood Pressure : / mmHG Vent. Rate : 086 BPM Atrial Rate : 086 BPM P-R Int : 190 ms QRS Dur : 160 ms QT Int : 394 ms P-R-T Axes : 068 -24 086 degrees QTc Int : 471 ms Atrial-sensed ventricular-paced rhythm with occasional Premature ventricular complexes Abnormal ECG Confirmed by KATHLEEN NGUYỄN, KARINA ([id number]), digital editor SAAD GILBERT ([id number]) on 02/26/2022 10:24:43 AM Referred By: SUSHANT Confirmed By:KARINA WANG MD
[2022-02-25 22:26] LABS: Absolute Lymphocyte Count 2.15 X10^3/uL (0.83-4.51); Absolute Neutrophil Count 7.3 X10^3/uL (2.0-7.7); Basophil# 0.04 X10^3/uL; Basophil% 0.4 % (0-1); Eosinophil# 0.12 X10^3/uL; Eosinophils% 1.1 % (0-5); Hematocrit 41.7 % (40-54); Hemoglobin 14.3 g/dL (13.0-16.5); Lymphocyte # 2.15 X10^3/ul (0.83-4.51); Lymphocyte % 19.7 % (19-41); Mean Corp Hgb Conc 34.3 g/dL (32-36); Mean Corpuscular Hgb 31.6 pg (27.0-32.0); Mean Corpuscular Volume 92.1 fL (80-94); Mean Platelet Vol. 9.9 fl (6.2-12.0); Monocyte# 1.22 X10^3/uL; Monocyte% 11.2 % (0-10); NRBC Flagged by Analyzer 0 % (0-5); Neutrophil # 7.34 X10^3/uL (2.7-7.7); Neutrophil % 67.2 % (47-70); Platelet Count 330 K/mm3 (150-450); Red Blood Count 4.53 M/mm3 (4.6-6.2); White Blood Count 10.9 K/mm3 (4.4-11.0)
[2022-02-25 22:43] LABS: ALB/GLOB Ratio 1.2 RATIO (0.9-2.4); AST(SGOT) 19 U/L (15-37); Alanine Aminotransfer ALT/SGPT 41 U/L (16-61); Albumin, Serum 4.4 g/dL (3.2-5.0); Alkaline Phosphatase 71 U/L (45-117); Anion Gap 6 (5-15); BUN 19 mg/dL (7-18); BUN/Creat Ratio 18.1 RATIO (10-20); Calcium,Total 9.7 mg/dL (8.5-10.1); Chloride 100 mmol/L (98-107); Creatinine, Serum 1.05 mg/dL (0.70-1.30); EST Glomerular Filtration Rate 72 mL/min (>60); Est Glom Filt Rate - Afr Amer 87 mL/min (>60); Estimated Creatinine Clearance 54.24 ml/min; Globulin 3.8 g/dL (2.2-4.2); Glucose 192 mg/dL (74-106); Protein, Total 8.2 g/dL (6.4-8.2); Sodium Level 135 mmol/L (136-145)
--- NOTE | 2022-02-25 23:13 | PCM.HP.STD ---
HPI - General General Date of Admission: 02/25/22 HPI Narrative MICHAEL HENRY, is a 81 M who presents to the emergency department with elevated blood pressures with systolic blood pressure in the 200s. Elevated blood pressure was on the same day of presentation. Of note patient reports a frontal and occipital headache. Headache is mild. He described the headache as pressure and fullness. He denies any nausea or vomiting on the same day of presentation. Because of elevated blood pressure he called the cardiology office and was instructed to take 25 mg of carvedilol and then continue with his carvedilol 12.5 mg p.o. twice daily. Reportedly his cardiology office ran a rhythm strip of his pacemaker. As his elevated blood pressure persisted he came to emergency department. Reportedly while at the emergency department he had gross hematuria. Gross hematuria was when he started his urinary stream and it abated. He saw urologist many years ago. While at the emergency department patient was concerned about tachycardia on the monitor. [facility] Medical History Accelerated hypertension Atherosclerosis of coronary artery without angina pectoris BPH (benign prostatic hyperplasia) Elevated troponin Essential (primary) hypertension History of non-ST elevation myocardial infarction (NSTEMI) (06/21/21) Hyperlipemia Hypokalemia Left ventricular diastolic dysfunction Multiple premature ventricular complexes Third degree heart block (06/20/21) Home Medications aspirin 81 mg PO DAILY #0 05/02/20 [Rx Last Taken 06/20/21] cholecalciferol (vitamin D3) 50 mcg (2,000 unit) capsule 50 mcg PO DAILY 02/05/21 [History Last Taken 06/20/21] atorvastatin 40 mg tablet 40 mg PO QHS #90 tab 08/20/21 [Rx Last Taken Unknown] carvedilol 12.5 mg tablet 12.5 mg PO BID #180 tab 08/20/21 [Rx Last Taken Unknown] clopidogrel 75 mg tablet 75 mg PO DAILY #90 tab 08/20/21 [Rx Last Taken Unknown] finasteride 5 mg tablet 5 mg PO DAILY #90 tab 08/20/21 [Rx Last Taken Unknown] isosorbide mononitrate 30 mg tablet,extended release 24 hr 30 mg PO DAILY #90 tab 08/20/21 [Rx Last Taken Unknown] losartan 100 mg tablet 100 mg PO DAILY #90 tab 08/20/21 [Rx Last Taken Unknown] Allergy/AdvReac Type Severity Reaction Status Date / Time No Known Allergies Allergy Verified 02/25/22 20:24 Family History Father Heart disease Mother Hypertension Surgical History History of cataract surgery History of coronary artery stent placement (12/25/19) History of left heart catheterization (06/22/21) 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) History of tonsillectomy Social History Smoking Status: Former smoker substance use type: does not use ROS ROS Narrative Pertinent positives and pertinent negatives as noted in HPI. All other systems were reviewed and are negative. Vital Signs Vital Signs Vital Signs: 02/25/22 20:19 02/25/22 20:31 02/25/22 21:46 Temperature 97.6 F L Temperature Source Temporal Pulse Rate 64 80 Respiratory Rate 15 16 Respiratory Effort Normal Non-Labored Respiratory Pattern Normal Blood Pressure 201/88 H 219/64 H Blood Pressure Mean 125 115 Pulse Ox 97 98 Oxygen Delivery Method Room Air Room Air 02/25/22 22:01 02/25/22 22:23 02/25/22 22:30 Temperature Temperature Source Pulse Rate 82 84 88 Respiratory Rate 12 12 Respiratory Effort Respiratory Pattern Blood Pressure 222/78 H 223/77 H 186/61 H Blood Pressure Mean 126 125 102 Pulse Ox 99 97 Oxygen Delivery Method Room Air Room Air 02/25/22 22:48 02/25/22 23:00 Temperature Temperature Source Pulse Rate 79 88 Respiratory Rate 15 12 Respiratory Effort Respiratory Pattern Blood Pressure 174/56 H 159/65 H Blood Pressure Mean 95 96 Pulse Ox 94 97 Oxygen Delivery Method Room Air Room Air Weight Weight: 80.286 kg Body Mass Index (BMI) 26.1 Physical Exam Narrative Physical exam: General: Well-nourished, well-developed. Head: Normocephalic, atraumatic, no tenderness Eyes: Vision is grossly intact. EOMI ENT, no trauma, moist mucous membranes, no rhinorrhea Neck: Nontender, full range of motion, no spinal tenderness, deformities, step-off CVS: Tachycardia. S1-S2 present. No murmur, gallop or rub. Respiratory : clear to auscultation bilaterally, chest wall nontender, no wheezing Abdomen: Soft, nontender, nondistended, normal bowel sounds, no masses : Deferred Back: Nontender, no CVA tenderness, no midline spinal tenderness, deformities, step-offs Extremities: Nontender full range of motion, no trauma Skin: Normal color, no trauma, abrasions Neuro: Alert, oriented, cranial nerves II through XII grossly intact. Psychiatry: Normal mood. Normal affect. Not depressed. Not anxious. Results Lab / Micro Data Result Diagrams: 02/25/22 20:40 02/25/22 20:40 Labs: Laboratory Results - last 24 hr 02/25/22 20:40: WBC 10.9, RBC 4.53 L, Hgb 14.3, Hct 41.7, MCV 92.1, MCH 31.6, MCHC 34.3, RDW Std Deviation 41.0, RDW Coeff of Yoan 12.0, Plt Count 330, MPV 9.9, Immature Gran % (Auto) 0.400, Neut % (Auto) 67.2, Lymph % (Auto) 19.7, [place] % (Auto) 11.2 H, Eos % (Auto) 1.1, Baso % (Auto) 0.4, Absolute Neuts (auto) 7.3, Absolute Lymphs (auto) 2.15, Nucleated RBC % 0 02/25/22 20:40: Sodium 135 L, Potassium 4.0, Chloride 100, Carbon Dioxide 29.0, Anion Gap 6, BUN 19 H, Creatinine 1.05, Estim Creat Clear Calc 54.24, Est GFR (MDRD) Af Amer 87, Est GFR (MDRD) Non-Af 72, BUN/Creatinine Ratio 18.1, Glucose 192 H, Calcium 9.7, Total Bilirubin 0.70, AST 19, ALT 41, Alkaline Phosphatase 71, Total Protein 8.2, Albumin 4.4, Globulin 3.8, Albumin/Globulin Ratio 1.2 Assessment & Plan Assessment/Plan (1) Hypertensive emergency: PLAN: Hypertensive emergency Highest systolic blood pressure at the emergency department was 222. Patient with headache on presentation. EKG showed paced rhythm. Received hydralazine 10 mg x 2 and then was started on nicardipine drip with improvement in blood pressure. Discussed emergent department doctor to give carvedilol additional 12.5 mg. On presentation patient had taken his evening dose of carvedilol of 12.5. Will escalate home carvedilol from 12.5mg to 25 mg p.o. twice daily. Continue on Imdur 30 mg daily. Continue losartan 100 mg daily. Trend blood pressures BMP showed a chronic hyponatremia. Mild on presentation. Trend. Gross hematuria Urinalysis ordered. On aspirin and Plavix for CAD with stents. Of note stent was placed 2 years ago. 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 Stable Trend DVT prophylaxis: SCD. Charges/Coding Visit Charges OBSV E&M: 43672 Initial observation care L3
[2022-02-25] MEDS: Carvedilol 12.5 MG Tablet PO (23:46)
[2022-02-26] VITALS (17 sets, daily range): BP systolic 106–180; BP diastolic 44–71; PULSE 60–83; RESP 12–18; TEMP 36.3–37; O2SAT 94–100
[2022-02-26 06:25] LABS: Anion Gap 7 (5-15); BUN 16 mg/dL (7-18); BUN/Creat Ratio 18.4 RATIO (10-20); Calcium,Total 9.3 mg/dL (8.5-10.1); Chloride 105 mmol/L (98-107); Creatinine, Serum 0.87 mg/dL (0.70-1.30); EST Glomerular Filtration Rate 89 mL/min (>60); Est Glom Filt Rate - Afr Amer 108 mL/min (>60); Estimated Creatinine Clearance 65.46 ml/min; Glucose 148 mg/dL (74-106); Sodium Level 135 mmol/L (136-145)
[2022-02-26] MEDS: Cholecalciferol (VIT D3) 25 MCG TABLET (1,000 UNITS) 50 MCG PO (08:32)
[2022-02-26] MEDS: Isosorbide Mononitrate 30 MG Tablet PO (08:32)
[2022-02-26] MEDS: Aspirin E.C. 81 MG Tablet PO (08:33)
[2022-02-26] MEDS: Clopidogrel Bisulfate 75 MG Tablet PO (08:33)
[2022-02-26] MEDS: Finasteride 5 MG Tablet PO (08:33)
--- NOTE | 2022-02-26 11:29 | PN.HOSP_ITS ---
Subjective Subjective Follow-up on hypertensive urgency: Patient was seen and examined. No acute events overnight. He denies any dizzin ess or palpitations or chest pain. His blood pressures are low. Orthostatic vitals are positive. Objective Data Objective Data Vital Signs: Vital Signs Temp Pulse Resp BP Pulse Ox 98.1 F 67 12 113/53 L 100 02/26/22 11:03 02/26/22 11:03 02/26/22 11:03 02/26/22 11:03 02/26/22 11:03 Oxygen Delivery Method Room Air Weight: 81.6 kg Body Mass Index (BMI) 26.5 Intake & Output: Intake and Output for Last 24 Hours 02/24/22 02/25/22 02/26/22 23:59 23:59 23:59 Intake Total 50.00 / 50.00 500 / 500 Output Total 500 / 500 Balance -450.00 / -450.00 500 / 500 Lab / Micro Data Result Diagrams: 02/25/22 20:40 02/26/22 05:26 Labs: Laboratory Results - last 24 hr 02/25/22 20:40: WBC 10.9, RBC 4.53 L, Hgb 14.3, Hct 41.7, MCV 92.1, MCH 31.6, MCHC 34.3, RDW Std Deviation 41.0, RDW Coeff of Yoan 12.0, Plt Count 330, MPV 9.9, Immature Gran % (Auto) 0.400, Neut % (Auto) 67.2, Lymph % (Auto) 19.7, [place] % (Auto) 11.2 H, Eos % (Auto) 1.1, Baso % (Auto) 0.4, Absolute Neuts (auto) 7.3, Absolute Lymphs (auto) 2.15, Nucleated RBC % 0 02/25/22 20:40: Sodium 135 L, Potassium 4.0, Chloride 100, Carbon Dioxide 29.0, Anion Gap 6, BUN 19 H, Creatinine 1.05, Estim Creat Clear Calc 54.24, Est GFR (MDRD) Af Amer 87, Est GFR (MDRD) Non-Af 72, BUN/Creatinine Ratio 18.1, Glucose 192 H, Calcium 9.7, Total Bilirubin 0.70, AST 19, ALT 41, Alkaline Phosphatase 71, Total Protein 8.2, Albumin 4.4, Globulin 3.8, Albumin/Globulin Ratio 1.2 02/26/22 05:26: Sodium 135 L, Potassium 4.0, Chloride 105, Carbon Dioxide 23.0, Anion Gap 7, BUN 16, Creatinine 0.87, Estim Creat Clear Calc 65.46, Est GFR (MDRD) Af Amer 108, Est GFR (MDRD) Non-Af 89, BUN/Creatinine Ratio 18.4, Glucose 148 H, Calcium 9.3 Physical Exam Narrative Physical exam: General: Alert, Oriented x3, Cooperative, No apparent distress HEENT: Atraumatic Oral: Moist Mucosa Neck: Supple Lungs: Clear to auscultation Cardiovascular: HS I+II, regular, no murmurs Abdomen: Bowel Sounds Present, Soft, Non Tender Extremities: No edema Skin: No rashes, No breakdown Neurological: Grossly intact Psych/Mental Status: Appropriate Assessment & Plan Assessment/Plan (1) Hypertensive urgency: PLAN: 1. Accelerated hypertension/hypertensive urgency, blood pressures are controlled now, now hypotensive Orthostatic hypotensive this morning, received IVF fluid boluses Repeat dose started vitals is negative We will continue to monitor, would resume back on Coreg 12.5 mg p.o. twice daily 2. Gross hematuria, appears resolved, will continue to monitor 3. CAD status post stent/status post pacemaker, continue on aspirin, Plavix, Imdur, carvedilol, losartan and statin 4. DVT PPx- Heparin SC Charges/Coding Visit Charges Inpatient E&M: 45941 Subs Hosp L2
--- NOTE | 2022-02-26 13:38 | CASEMGMT ---
This RN CM to room with MARTINEZ form, explanation done-pt voices understanding, and signs MARTINEZ form. Original to chart and copy to pt. Pt also provided copy of MCR IP vs OBS booklet. Pt voices no further questions/concerns/needs. SStaten REYNA CM
[2022-02-26 17:40] LABS: Mucous, Urine 0 SEEN /hpf (<or=2+); Red Blood Cells-Urine 0 SEEN /hpf (0-5); Squamous Epithelial Cells - UA 0 SEEN /hpf (0-5); White Blood Cells 0 SEEN /hpf (0-5)
[2022-02-26 18:05] LABS: Color, Urine Straw (Yellow); Glucose, Dipstick 250 mg/dl (Normal); Ketone-Dipstick Negative (Negative); Leukocyte Esterase-Dipstick Negative /ul (Negative); Nitrite-Dipstick Negative (Negative); Occult Blood-Urine 25 /ul (Negative); Protein-Dipstick 30 mg/dl (Negative); Urine Bilirubin Dipstick Negative (Negative); Urine Clarity Clear (Clear); Urine Urobilinogen Normal (Normal)
[2022-02-26 18:33] LABS: Bacteria RARE /hpf (None Seen)
[2022-02-26] MEDS: Losartan Potassium 100 MG Tablet PO (21:10)
[2022-02-26] MEDS: Atorvastatin Calcium 40 MG Tablet PO (21:10)
[2022-02-26] MEDS: Carvedilol 12.5 MG Tablet PO (21:13)
[2022-02-27 02:40] VITALS: PULSE 63
[2022-02-27 04:30] VITALS: BP 132/61; PULSE 62; RESP 16; TEMP 36.6; O2SAT 99
[2022-02-27 05:59] LABS: Absolute Lymphocyte Count 2.01 X10^3/uL (0.83-4.51); Absolute Neutrophil Count 5.4 X10^3/uL (2.0-7.7); Basophil# 0.05 X10^3/uL; Basophil% 0.6 % (0-1); Eosinophil# 0.21 X10^3/uL; Eosinophils% 2.5 % (0-5); Hematocrit 38.5 % (40-54); Hemoglobin 13.1 g/dL (13.0-16.5); Lymphocyte # 2.01 X10^3/ul (0.83-4.51); Lymphocyte % 23.6 % (19-41); Mean Corpuscular Volume 93.9 fL (80-94); Mean Platelet Vol. 9.1 fl (6.2-12.0); Monocyte# 0.83 X10^3/uL; Monocyte% 9.8 % (0-10); NRBC Flagged by Analyzer 0 % (0-5); Neutrophil # 5.39 X10^3/uL (2.7-7.7); Neutrophil % 63.3 % (47-70); Platelet Count 227 K/mm3 (150-450); RBC Distribution Width CV 12.5 % (11.6-14.6); RBC Distribution Width SD 42.8 fl (35.1-43.9); White Blood Count 8.5 K/mm3 (4.4-11.0)
[2022-02-27 06:30] LABS: ALB/GLOB Ratio 1.2 RATIO (0.9-2.4); AST(SGOT) 19 U/L (15-37); Alanine Aminotransfer ALT/SGPT 34 U/L (16-61); Albumin, Serum 3.6 g/dL (3.2-5.0); Alkaline Phosphatase 56 U/L (45-117); Anion Gap 8 (5-15); BUN 21 mg/dL (7-18); BUN/Creat Ratio 25.3 RATIO (10-20); Calcium,Total 8.6 mg/dL (8.5-10.1); Chloride 103 mmol/L (98-107); Creatinine, Serum 0.83 mg/dL (0.70-1.30); EST Glomerular Filtration Rate 94 mL/min (>60); Est Glom Filt Rate - Afr Amer 114 mL/min (>60); Estimated Creatinine Clearance 68.62 ml/min; Globulin 3.1 g/dL (2.2-4.2); Glucose 127 mg/dL (74-106); Protein, Total 6.7 g/dL (6.4-8.2); Sodium Level 133 mmol/L (136-145)
[2022-02-27 07:06] VITALS: PULSE 60
[2022-02-27 08:01] VITALS: BP 146/57; PULSE 63; RESP 12; TEMP 36.7; O2SAT 98
[2022-02-27 08:03] VITALS: BP 132/60; BP 141/61; BP 146/57; PULSE 61; PULSE 64; PULSE 69
--- NOTE | 2022-02-27 09:22 | PCM.DC ---
Discharge Instructions Diet Discharge Diet: Low fat / Low cholesterol and 2000 mg Sodium Diet Activity Discharge Activity: Return to Normal Activity Follow Up Care Test Results: Test results from this visit will be discussed in further detail at your follow-up appointment, if applicable. Discharge Plan Admission Admit Date/Time: 02/25/22 23:06 Primary Reason for Your Visit: Hypertension Attending Provider: Yaneli Duggan Primary Care Provider: Evelio Villalba Consulting Providers: Konrda Bermeo Instructions Additional Instructions / Restrictions: You have been kept on your Coreg 12.5 mg daily. Continue to take your blood pressure every day. Follow-up with your primary care doctor within a week and showed him a log of your blood pressure. Discharge Orders/Prescriptions Prescriptions: Continued cholecalciferol (vitamin D3) 50 mcg (2,000 unit) capsule 50 mcg PO DAILY RF: 0 atorvastatin 40 mg tablet 40 mg PO QHS Qty: 90 RF: 3 carvedilol [Coreg] 12.5 mg tablet 12.5 mg PO BID Qty: 180 RF: 3 clopidogrel 75 mg tablet 75 mg PO DAILY Qty: 90 RF: 3 isosorbide mononitrate 30 mg tablet extended release 24 hr 30 mg PO DAILY Qty: 90 RF: 3 finasteride 5 mg tablet 5 mg PO DAILY Qty: 90 RF: 3 aspirin 81 MG tablet 81 mg PO DAILY Qty: 0 RF: 0 No Action losartan 100 mg tablet 100 mg PO DAILY Qty: 90 RF: 3 Referrals / Follow Up: Evelio Villalba MD [Primary Care Provider] - Within 1 Week Disposition Disposition (needs filled in before D/C Order can be placed): Home, Self Care
--- NOTE | 2022-02-27 09:27 | DS.PCM_ITS ---
Providers Date of Admission: 02/25/22 Date of Discharge: 02/27/22 Primary Care Physician: Dr. Evelio Villalba MD Reason For Visit: HYPERTENSIVE EMERGENCY Diagnosis Discharge Diagnosis (1) Hypertensive urgency: Status: Acute Code(s): I16.0 - Hypertensive urgency (2) Orthostatic hypotension: Status: Acute Code(s): I95.1 - Orthostatic hypotension Medications at Discharge Home Medications aspirin 81 mg PO DAILY #0 05/02/20 cholecalciferol (vitamin D3) 50 mcg (2,000 unit) capsule 50 mcg PO DAILY 02/05/21 atorvastatin 40 mg tablet 40 mg PO QHS #90 tab 08/20/21 carvedilol 12.5 mg tablet 12.5 mg PO BID #180 tab 08/20/21 clopidogrel 75 mg tablet 75 mg PO DAILY #90 tab 08/20/21 finasteride 5 mg tablet 5 mg PO DAILY #90 tab 08/20/21 isosorbide mononitrate 30 mg tablet,extended release 24 hr 30 mg PO DAILY #90 tab 08/20/21 losartan 100 mg tablet 100 mg PO DAILY #90 tab 08/20/21 Hospital Course Operations None Procedures None Summary of Care Provided Minutes Spent on Discharge: 35 Hospital Course: 81-year-old male who presents with elevated blood pressure and a frontal and occipital headache. Patient had called his primary cardiology's office and was instructed to take 25 mg of carvedilol. His blood pressure monitoring at home showed persistent hypertension, and he decided to come to the emergency room. In the emergency room, his blood pressure was 219/64. He denied any chest pain. He was given IV hydralazine. This did not help the blood pressure. He was started on Cardene drip. EKG shows no acute acute ST-T changes. Patient was admitted to the PCU, his Coreg was increased. His blood pressure was monitored. He developed relative hypotension with positive orthostatic vitals. Patient received a fluid bolus. He was monitored further. Patient blood pressure remained stable. He was discharged home on his Coreg 12.5 mg p.o. twice daily. Patient knows to follow-up with his primary care doctor within 1 to 2 weeks. Physical Exam Narrative Physical exam: General: Alert, Oriented x3, Cooperative, No apparent distress HEENT: Atraumatic Oral: Moist Mucosa Neck: Supple Lungs: Clear to auscultation Cardiovascular: HS I+II, regular, no murmurs Abdomen: Bowel Sounds Present, Soft, Non Tender Extremities: No edema Skin: No rashes, No breakdown Neurological: Grossly intact Psych/Mental Status: Appropriate Weight / BMI Weight Weight: 81.6 kg Body Mass Index (BMI) 26.5 ABG / Lab / Microbiology Data Result Diagrams: 02/27/22 05:47 02/27/22 05:47 Laboratory: Laboratory Results - last 24 hr 02/26/22 03:19: Urine Color Straw, Urine Clarity Clear, Urine pH 7.0, Ur Specific [place] 1.010, Urine Protein 30 H, Urine Glucose (UA) 250 H, Urine Ketones Negative, Urine Occult Blood 25 H, Urine Nitrite Negative, Urine Bilirubin Negative, Urine Urobilinogen Normal, Ur Leukocyte Esterase Negative, Urine RBC 0 SEEN, Urine WBC 0 SEEN, Ur Squamous Epith Cells 0 SEEN, Urine Ba cteria RARE, Urine Mucus 0 SEEN 02/27/22 05:47: WBC 8.5, RBC 4.10 L, Hgb 13.1, Hct 38.5 L, MCV 93.9, MCH 32.0, MCHC 34.0, RDW Std Deviation 42.8, RDW Coeff of Yoan 12.5, Plt Count 227, MPV 9.1, Immature Gran % (Auto) 0.200, Neut % (Auto) 63.3, Lymph % (Auto) 23.6, [place] % (Auto) 9.8, Eos % (Auto) 2.5, Baso % (Auto) 0.6, Absolute Neuts (auto) 5.4, Absolute Lymphs (auto) 2.01, Nucleated RBC % 0 02/27/22 05:47: Sodium 133 L, Potassium 4.0, Chloride 103, Carbon Dioxide 22.0, Anion Gap 8, BUN 21 H, Creatinine 0.83, Estim Creat Clear Calc 68.62, Est GFR (MDRD) Af Amer 114, Est GFR (MDRD) Non-Af 94, BUN/Creatinine Ratio 25.3 H, Glucose 127 H, Calcium 8.6, Total Bilirubin 1.30 H, AST 19, ALT 34, Alkaline Phosphatase 56, Total Protein 6.7, Albumin 3.6, Globulin 3.1, Albumin/Globulin Ratio 1.2 D/C Instructions Discharge Diet: Low fat / Low cholesterol and 2000 mg Sodium Diet Meaningful Use Info Meaningful Use Diagnoses (Choose all that apply): None applicable Discharge Plan Admission Admit Date/Time: 02/25/22 23:06 Primary Reason for Your Visit: Hypertension Attending Provider: Yaneli Duggan Primary Care Provider: Evelio Villalba Consulting Providers: Konrad Bermeo Instructions Additional Instructions / Restrictions: You have been kept on your Coreg 12.5 mg daily. Continue to take your blood pressure every day. Follow-up with your primary care doctor within a week and showed him a log of your blood pressure. Discharge Orders/Prescriptions Prescriptions: Continued cholecalciferol (vitamin D3) 50 mcg (2,000 unit) capsule 50 mcg PO DAILY RF: 0 atorvastatin 40 mg tablet 40 mg PO QHS Qty: 90 RF: 3 carvedilol [Coreg] 12.5 mg tablet 12.5 mg PO BID Qty: 180 RF: 3 clopidogrel 75 mg tablet 75 mg PO DAILY Qty: 90 RF: 3 isosorbide mononitrate 30 mg tablet extended release 24 hr 30 mg PO DAILY Qty: 90 RF: 3 finasteride 5 mg tablet 5 mg PO DAILY Qty: 90 RF: 3 aspirin 81 MG tablet 81 mg PO DAILY Qty: 0 RF: 0 No Action losartan 100 mg tablet 100 mg PO DAILY Qty: 90 RF: 3 Referrals / Follow Up: Evelio Villalba MD [Primary Care Provider] - Within 1 Week Disposition Disposition (needs filled in before D/C Order can be placed): Home, Self Care Charges/Coding Visit Charges OBSV E&M: 80635 Observation care discharge
[2022-02-27] MEDS: Clopidogrel Bisulfate 75 MG Tablet PO (09:49)
[2022-02-27] MEDS: Aspirin E.C. 81 MG Tablet PO (09:49)
[2022-02-27] MEDS: Isosorbide Mononitrate 30 MG Tablet PO (09:49)
[2022-02-27] MEDS: Cholecalciferol (VIT D3) 25 MCG TABLET (1,000 UNITS) 50 MCG PO (09:49)
[2022-02-27] MEDS: Carvedilol 12.5 MG Tablet PO (09:49)
[2022-02-27] MEDS: Finasteride 5 MG Tablet PO (09:50)
== END 2022-02-27 09:21 | disposition home or self-care (01) ==
LOC: ED 23:08 → PCU 23:16
PROVIDERS: Admitting Provider Hospitalist; Emergency Provider Emergency Medicine; PCP Family Medicine; Visit Provider Internal Medicine
DX: I16.1 Hypertensive emergency (principal); N18.31 Chronic kidney disease, stage 3a; I95.1 Orthostatic hypotension; I12.9 Hypertensive chronic kidney disease with stage 1 through stage 4 chronic kidney disease, or unspecified chronic kidney disease; E78.5 Hyperlipidemia, unspecified; R73.9 Hyperglycemia, unspecified; E87.1 Hypo-osmolality and hyponatremia; I25.10 Atherosclerotic heart disease of native coronary artery without angina pectoris; R31.0 Gross hematuria; Z87.891 Personal history of nicotine dependence; Z95.0 Presence of cardiac pacemaker; Z79.899 Other long term (current) drug therapy; Z79.02 Long term (current) use of antithrombotics/antiplatelets; Z79.82 Long term (current) use of aspirin; N40.1 Benign prostatic hyperplasia with lower urinary tract symptoms; I25.2 Old myocardial infarction
CPT/HCPCS: 36415; 80048; 80053; 81001; 85025; 93005; 96361; 96365; 96375; 99218; 99283; J7040; J7050; A4216; G0378

== ENCOUNTER → 2022-07-09 | Outpatient (CLI) | payer MEDICARE, SELFPAY ==
[2022-07-09 12:31] LABS: Anion Gap 6 (5-15); BUN 12 mg/dL (7-18); BUN/Creat Ratio 13.8 RATIO (10-20); Calcium,Total 9.3 mg/dL (8.5-10.1); Chloride 102 mmol/L (98-107); Cholesterol 103 mg/dL (200); Creatinine, Serum 0.87 mg/dL (0.70-1.30); EST Glomerular Filtration Rate 89 mL/min (>60); Est Glom Filt Rate - Afr Amer 107 mL/min (>60); Glucose 121 mg/dL (74-106); High Density Lipoprotein 43 mg/dL; Potassium 4.1 mmol/L (3.5-5.1); Sodium Level 136 mmol/L (136-145); Triglycerides 93 mg/dL; Very Low Density Lipoprotein 19 mg/dL (5-40)
== END | disposition home or self-care (01) ==
LOC: MTLAB 10:45
PROVIDERS: PCP Family Medicine; Referring Provider Family Medicine; Visit Provider Family Medicine
DX: I10 Essential (primary) hypertension (principal)
CPT/HCPCS: 36415; 80048; 80061

== ENCOUNTER → 2022-10-12 | Outpatient (CLI) | payer MEDICARE, SELFPAY ==
[2022-10-12 18:11] LABS: Troponin-I HS 12 pg/mL (3.0-78.0)
== END | disposition home or self-care (01) ==
LOC: MFPLAB 17:15
PROVIDERS: PCP Family Medicine; Visit Provider Family Medicine
DX: R94.31 Abnormal electrocardiogram [ECG] [EKG] (principal)
CPT/HCPCS: 36415; 84484

== ENCOUNTER → 2022-10-13 | Outpatient (CLI) | payer MEDICARE, SELFPAY ==
[2022-10-13 17:54] LABS: Hematocrit 41.5 % (40-54); Mean Corp Hgb Conc 33.7 g/dL (32-36); Mean Corpuscular Hgb 31.5 pg (27.0-32.0); Mean Corpuscular Volume 93.3 fL (80-94); Platelet Count 284 K/mm3 (150-450); RBC Distribution Width CV 12.1 % (11.6-14.6); RBC Distribution Width SD 41.4 fl (35.1-43.9); Red Blood Count 4.45 M/mm3 (4.6-6.2); White Blood Count 8.4 K/mm3 (4.4-11.0)
[2022-10-13 18:01] LABS: Anion Gap 6 (5-15); BUN 17 mg/dL (7-18); Calcium,Total 9.4 mg/dL (8.5-10.1); Chloride 99 mmol/L (98-107); Creatinine, Serum 0.85 mg/dL (0.70-1.30); EST Glomerular Filtration Rate 91 mL/min (>60); Est Glom Filt Rate - Afr Amer 111 mL/min (>60); Glucose 125 mg/dL (74-106); Magnesium 2.2 mg/dL (1.6-2.6); Potassium 4.3 mmol/L (3.5-5.1); Sodium Level 133 mmol/L (136-145)
== END | disposition home or self-care (01) ==
LOC: MFPLAB 16:26
PROVIDERS: PCP Family Medicine; Visit Provider Internal Medicine Cardiovascular Disease
DX: Z95.5 Presence of coronary angioplasty implant and graft (principal); I49.3 Ventricular premature depolarization; I25.10 Atherosclerotic heart disease of native coronary artery without angina pectoris; I10 Essential (primary) hypertension; R00.2 Palpitations
CPT/HCPCS: 36415; 80048; 83735; 85027

== ENCOUNTER → 2023-01-05 | Outpatient (CLI) | payer MEDICARE, SELFPAY ==
[2023-01-05 15:54] LABS: Anion Gap 6 (5-15); BUN 14 mg/dL (7-18); BUN/Creat Ratio 17.2 RATIO (10-20); Calcium,Total 9.2 mg/dL (8.5-10.1); Chloride 102 mmol/L (98-107); Creatinine, Serum 0.81 mg/dL (0.70-1.30); EST Glomerular Filtration Rate 96 mL/min (>60); Est Glom Filt Rate - Afr Amer 117 mL/min (>60); Glucose 122 mg/dL (74-106); Potassium 4.2 mmol/L (3.5-5.1); Sodium Level 134 mmol/L (136-145)
== END | disposition home or self-care (01) ==
LOC: MFPLAB 13:50
PROVIDERS: PCP Family Medicine; Referring Provider Family Medicine; Visit Provider Family Medicine
DX: I10 Essential (primary) hypertension (principal)
CPT/HCPCS: 36415; 80048

== ENCOUNTER → 2023-01-17 | Outpatient (CLI) | payer MEDICARE, SELFPAY ==
[2023-01-17 16:13] LABS: PSA,Total- Diagnostic 1.46 ng/mL (0.0-4.0)
== END | disposition home or self-care (01) ==
LOC: MTLAB 13:44
PROVIDERS: PCP Family Medicine; Referring Provider Family Medicine; Visit Provider Family Medicine
DX: N40.0 Benign prostatic hyperplasia without lower urinary tract symptoms (principal)
CPT/HCPCS: 36415; 84153

== ENCOUNTER 2023-08-30 06:51 | Inpatient (IN) | payer MEDICARE, SELFPAY ==
[2023-08-30] VITALS (7 sets, daily range): BP systolic 113–205; BP diastolic 42–82; PULSE 56–97; RESP 15–18; TEMP 35.9–36.7; O2SAT 98–99; BMI 27.3; BMI 25.9
--- NOTE | 2023-08-30 07:17 | EKG12_ITS ---
Test Reason : CP Blood Pressure : / mmHG Vent. Rate : 081 BPM Atrial Rate : 041 BPM P-R Int : 584 ms QRS Dur : 130 ms QT Int : 344 ms P-R-T Axes : 048 -39 139 degrees QTc Int : 399 ms Marked sinus bradycardia with marked sinus arrhythmia with 1st degree A-V block with frequent AV dual -paced complexes and Premature supraventricular complexes and with occasional Premature ventricular complexes Left axis deviation Left bundle branch block Abnormal ECG Confirmed by KATHLEEN NGUYỄN, KARINA ([id number]), fan mail editor MILTON MAYEN ([id number]) on 08/31/2023 11:02:31 AM Referred By: Confirmed By:KARINA WANG MD
--- NOTE | 2023-08-30 07:18 | EDS_ITS ---
HPI History of Present Illness Chief Complaint: Chest Pain Informant: patient Narrative Narrative: 83-year-old male presenting to the emergency room with chest pressure. Patient states he had a good day yesterday was very active with no complaints. He ate dinner consisting of a sausage rama and baked potato. States he felt bloated afterwards. Around midnight he laid down for bed. He developed a pressure in his chest and felt that his heart was beating irregular with 2 quick beats in succession. He got up walked around and it kept him up most of the night. Since laying on the bed in the emergency room he started feeling better now. He has a history of third-degree heart block with a pacemaker and atherosclerotic heart disease. He follows locally with Dr. Pittman for cardiology. He is not do any morning medications to around 1130. No shortness of breath jaw pain are pain back pain. Heart catheterization June 2021: LEFT ANTERIOR DESCENDING ARTERY: Mild luminal irregularities less than 30% CIRCUMFLEX ARTERY: Mild luminal irregularities less than 30% RAMUS: Mild luminal irregularities RIGHT CORONARY ARTERY: Moderate luminal irregularities up to 50% PFSH PFS Medical History Accelerated hypertension Atherosclerosis of coronary artery without angina pectoris BPH (benign prostatic hyperplasia) Elevated troponin Essential (primary) hypertension History of non-ST elevation myocardial infarction (NSTEMI) (06/21/21) Hyperlipemia Hypokalemia Left ventricular diastolic dysfunction Multiple premature ventricular complexes Third degree heart block (06/20/21) Home Medications aspirin 81 mg tablet,delayed release 81 mg PO DAILY ##0 05/02/20 [Rx Last Taken 06/20/21] cholecalciferol (vitamin D3) 50 mcg (2,000 unit) capsule 50 mcg PO DAILY supplement 02/05/21 [History Last Taken 06/20/21] atorvastatin 40 mg tablet 40 mg PO QHS #90 tabs 09/24/22 [Rx Last Taken Unknown] isosorbide mononitrate 30 mg tablet,extended release 24 hr 30 mg PO DAILY heart #90 tabs 10/18/22 [Rx Last Taken Unknown] losartan 100 mg tablet 100 mg PO DAILY BP #90 tabs 12/13/22 [Rx Last Taken Unknown] carvedilol 25 mg tablet 25 mg PO BID this is a dose increase #180 tabs 01/31/23 [Rx Last Taken Unknown] finasteride 5 mg tablet 5 mg PO DAILY prostate #90 tabs 06/23/23 [Rx Last Taken Unknown] Allergy/AdvReac Type Severity Reaction Status Date / Time No Known Allergies Allergy Verified 08/30/23 06:53 Family History Father Heart disease Mother Hypertension Surgical History History of cataract surgery History of coronary artery stent placement (12/25/19) History of left heart catheterization (06/22/21) 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) History of tonsillectomy Social History Smoking Status: Former smoker substance use type: does not use ROS ROS ED Constitutional Constitutional ED: Denies chills, fever(s) or weight loss Eyes Eyes: Denies change in vision or diplopia ENT ENT ED: Denies ear pain, rhinorrhea or sore throat Cardiovascular Cardiovascular: Reports chest pain and palpitations; Denies orthopnea or racing heartbeat Respiratory/Chest Respiratory/Chest: Denies cough, dyspnea or orthopnea Gastrointestinal Gastrointestinal: Denies abdominal pain, diarrhea, nausea or vomiting Genitourinary Genitourinary ED: Denies dysuria, hematuria or urinary frequency Musculoskeletal Musculoskeletal: Denies arthralgias or myalgias Integumentary Denies abscess or rash Neurologic Neurologic: Denies headache(s) or weakness Psychiatric Psychiatric: Denies anxiety, depression, suicidal ideation or suicidal thoughts Endocrine Endocrinology: Denies polydipsia, polyphagia or polyuria Allergic/Immunologic Allergic/Immunologic ED: Denies mouth swelling, tongue swelling or urticaria EXAM Physical Exam Const Vital Signs: 08/30/23 06:53 08/30/23 06:57 08/30/23 07:56 Temperature 96.6 F L Temperature Source Temporal Pulse Rate 97 74 Respiratory Rate 17 16 Respiratory Effort Normal Blood Pressure 205/60 H 167/73 H Blood Pressure Mean 108 104 Pulse Ox 98 98 Oxygen Delivery Method Room Air Positive well nourished and well developed General Appearance ED: well developed HEENT Reports normocephalic, head/scalp atraumatic and moist mucous membranes Eyes PERRL and EOMs intact bilaterally Neck no lymphadenopathy, supple and no JVD Resp normal respiratory effort and clear to auscultation bilaterally Cardio regular rate, regular rhythm and no murmurs GI normal to inspection, nondistended, normoactive bowel sounds and non-tender Palpation: soft Back/Spine no CVA tenderness and normal ROM Extremity normal to inspection General Extremety ED: Negative for edema General Extremity: Negative for edema Neuro oriented x3 and CN's II-XII intact bilaterally Sensorium / Orientation: alert Motor Exam: strength 5/5 throughout Psych mental status grossly normal Mood & Affect: Negative for depressed or tearful Skin no rashes or lesions noted and no wounds Heart Score History: Moderately Suspicious ECG: Normal Age: >/= 65 years Risk Factors: >/= 3 Risk Factors or History of CAD Troponin: >/=3 x Normal Limit Score: 7 MDM MDM MDM Narrative Medical decision making narrative: Differential can include but not limited to ACS, hypertensive urgency, pneumonia, CHF, aortic dissection, reflux Patient has frequent PVCs with occasional pattern of bigeminy. Patient's blood pressure has slowly come down from a systolic of 205 currently at 148. Morning medications were ordered including aspirin. My independent interpretation of the chest x-ray is no acute process. Pacemaker leads in place. White count 13.1 hemoglobin 13.8. BMP with a glucose of 193 troponin is elevated at 163. Patient is feeling better here in the department. I spoke with the patient's lining repairer Dr. Pittman and her plan will be admission for cycling of enzymes and further evaluation. History & Record Review Discussion w/independent historian: Patient and Friend Additional record(s) reviewed:: Prior inpatient record, Prior outpatient record, Prior ED visit and Prior labs Lab Data Attestation: I reviewed the patient's lab results. Labs: Laboratory Results - last 24 hr 08/30/23 07:12 WBC 13.9 H RBC 4.31 L Hgb 13.8 Hct 40.1 MCV 93.0 MCH 32.0 MCHC 34.4 RDW Std Deviation 41.4 RDW Coeff of Yoan 12.0 Plt Count 279 MPV 9.5 Immature Gran % (Auto) 0.400 Neut % (Auto) 79.7 H Lymph % (Auto) 11.6 L [place] % (Auto) 7.3 Eos % (Auto) 0.6 Baso % (Auto) 0.4 Absolute Neuts (auto) 11.1 H Absolute Lymphs (auto) 1.61 Nucleated RBC % 0 Sodium 133 L Potassium 4.4 Chloride 102 Carbon Dioxide 27.0 Anion Gap 4 L BUN 16 Creatinine 0.91 Estim Creat Clear Calc 60.43 Est GFR (MDRD) Af Amer 103 Est GFR (MDRD) Non-Af 85 BUN/Creatinine Ratio 17.7 Glucose 193 H Calcium 9.4 Troponin I High Sens 163 H* Radiography Diagnostic Testing: Clinical Impression(s) from Imaging Studies Chest X-Ray 08/30/23 07:30 IMPRESSION: No radiographic evidence of acute cardiopulmonary disease. Electronically Signed: Babita Bishop MD at 8:13 EST , EKG Initial EKG: Attestation: I personally reviewed and interpreted this EKG as follows: Comments: Paced rhythm with frequent PVCs in a bigeminy pattern. 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 Pittman (cardiology)) Discharge Plan Dx/Rx/DC Orders Clinical Impression: Chest pain, History of permanent cardiac pacemaker placement, Essential hypertension, Elevated troponin Disposition Disposition: Acute Care Hospital [facility]
[2023-08-30 07:25] LABS: Absolute Lymphocyte Count 1.61 X10^3/uL (0.83-4.51); Absolute Neutrophil Count 11.1 X10^3/uL (2.0-7.7); Basophil# 0.05 X10^3/uL; Basophil% 0.4 % (0-1); Eosinophil# 0.08 X10^3/uL; Eosinophils% 0.6 % (0-5); Hematocrit 40.1 % (40-54); Hemoglobin 13.8 g/dL (13.0-16.5); Lymphocyte # 1.61 X10^3/ul (0.83-4.51); Lymphocyte % 11.6 % (19-41); Mean Corp Hgb Conc 34.4 g/dL (32-36); Mean Platelet Vol. 9.5 fl (6.2-12.0); Monocyte# 1.01 X10^3/uL; Monocyte% 7.3 % (0-10); NRBC Flagged by Analyzer 0 % (0-5); Neutrophil # 11.07 X10^3/uL (2.7-7.7); Neutrophil % 79.7 % (47-70); Platelet Count 279 K/mm3 (150-450); RBC Distribution Width SD 41.4 fl (35.1-43.9); Red Blood Count 4.31 M/mm3 (4.6-6.2); White Blood Count 13.9 K/mm3 (4.4-11.0)
--- NOTE | 2023-08-30 07:30 | RAD_ITS ---
INDICATION: chest pain EXAMINATION/TECHNIQUE: X-RAY - XR Chest 1 View COMPARISON: June 23, 2021 FINDINGS: LINES/DEVICES: There is a dual-lead cardiac pacer device in place with leads terminating within the expected region of the right atrium and right ventricle. LUNGS: No consolidation, edema or effusion. No pneumothorax. MEDIASTINUM AND CARDIOVASCULAR STRUCTURES: Cardiac silhouette not enlarged. Central airways and mediastinal contour are unremarkable. BONES AND SOFT TISSUES: Unremarkable. RAD/Chest 1 View (Portable) IMPRESSION: No radiographic evidence of acute cardiopulmonary disease. Electronically Signed: Babita Bishop MD at 8:13 EST ,
[2023-08-30] MEDS: Aspirin 81 MG TAB.CHEW 324 MG PO (07:34)
[2023-08-30 07:51] LABS: Anion Gap 4 (5-15); BUN 16 mg/dL (7-18); BUN/Creat Ratio 17.7 RATIO (10-20); Calcium,Total 9.4 mg/dL (8.5-10.1); Chloride 102 mmol/L (98-107); Creatinine, Serum 0.91 mg/dL (0.70-1.30); EST Glomerular Filtration Rate 85 mL/min (>60); Est Glom Filt Rate - Afr Amer 103 mL/min (>60); Estimated Creatinine Clearance 60.43 ml/min; Glucose 193 mg/dL (74-106); Potassium 4.4 mmol/L (3.5-5.1); Sodium Level 133 mmol/L (136-145); Troponin-I HS (w/2H Reflex) 163 pg/mL (3.0-78.0)
--- NOTE | 2023-08-30 08:50 | HP.PCM_ITS ---
HPI - General General Date of Admission: 08/30/23 Date of Service: 08/30/23 Chief Complaint: chest pain HPI Narrative MICHAEL HENRY, is a 83 M with a PMH as outlined who presents via the ED on 08/30/2023 with a complaint of chest pain and pressure. He had a good dinner hte day before he came in and said he ate a sausage rama and baked potato. He subsequently felt bloated, nad developed chest pain and pressure. He says he also had associated irregular beating of his heart. He also had tinnitus. He felt this way throughout hte night and couldnt sleep much, so he came in to the ED. He denied any shortness of breath, dizziness or lightheadedness, nausea or vomiting. Review of systems is otherwise negative. Vitals in the ED were BP of 205/60 when he came in to the ED, with [place] of 97, temp of 96.6F and RR of 17. He was saturating at 98% on room air. BP came down to 167/73 on its own. CBC showed hb of 13.8, wbc of 13.9, platelets of 279. CBC showed sodium of 133 with potassium of 4.4 and Cr of 0.91. Initial troponin was 163. EKG showed a paced rhythm, and CXR showed no acute cardiopulmonary process. He is being admitted to be managed for hypertensive urgency with elevated troponins, to rule out ACS. [facility] Medical History Accelerated hypertension Atherosclerosis of coronary artery without angina pectoris BPH (benign prostatic hyperplasia) Elevated troponin Essential (primary) hypertension History of non-ST elevation myocardial infarction (NSTEMI) (06/21/21) Hyperlipemia Hypokalemia Left ventricular diastolic dysfunction Multiple premature ventricular complexes Third degree heart block (06/20/21) Home Medications aspirin 81 mg tablet,delayed release 81 mg PO DAILY ##0 05/02/20 [Rx Last Taken 06/20/21] cholecalciferol (vitamin D3) 50 mcg (2,000 unit) capsule 50 mcg PO DAILY supplement 02/05/21 [History Last Taken 06/20/21] atorvastatin 40 mg tablet 40 mg PO QHS #90 tabs 09/24/22 [Rx Last Taken Unknown] isosorbide mononitrate 30 mg tablet,extended release 24 hr 30 mg PO DAILY heart #90 tabs 10/18/22 [Rx Last Taken Unknown] losartan 100 mg tablet 100 mg PO DAILY BP #90 tabs 12/13/22 [Rx Last Taken Unknown] carvedilol 25 mg tablet 25 mg PO BID this is a dose increase #180 tabs 01/31/23 [Rx Last Taken Unknown] finasteride 5 mg tablet 5 mg PO DAILY prostate #90 tabs 06/23/23 [Rx Last Taken Unknown] Allergy/AdvReac Type Severity Reaction Status Date / Time No Known Allergies Allergy Verified 08/30/23 06:53 Family History Father Heart disease Mother Hypertension Surgical History History of cataract surgery History of coronary artery stent placement (12/25/19) History of left heart catheterization (06/22/21) 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) History of tonsillectomy Social History (Updated 08/30/23 @ 09:51 by Cici Wong) household members: spouse housing: house Smoking Status: Former smoker substance use type: does not use diet: low salt ROS Constitutional Constitutional: Reports fatigue and malaise; Denies anorexia, chills, fever(s) or weakness Eyes Eyes: Denies change in vision ENT HEENT: Denies dysphagia, headache(s) or sore throat Cardiovascular Cardiovascular: Reports chest pain; Denies edema, orthopnea, palpitations, paroxysmal nocturnal dyspnea or syncope Respiratory/Chest Respiratory/Chest: Denies cough, shortness of breath at rest, shortness of breath with exertion or wheezing Gastrointestinal Gastrointestinal: Denies abdominal pain, diarrhea, dyspepsia, nausea or vomiting Genitourinary Genitourinary: Denies dysuria Musculoskeletal Musculoskeletal: Denies back pain, joint pain, joint swelling, limited range of motion or muscle weakness Neurologic Neurologic: Denies confusion, dizziness, focal weakness, headache(s), lack of coordination, numbness, seizures, tremor(s) or weakness Psychiatric Psychiatric: Denies anxiety or depression Endocrine Endocrinology: Denies change in body appearance Vital Signs Vital Signs Vital Signs: 08/30/23 06:53 08/30/23 06:57 08/30/23 07:56 Temperature 96.6 F L Temperature Source Temporal Pulse Rate 97 74 Respiratory Rate 17 16 Respiratory Effort Normal Blood Pressure 205/60 H 167/73 H Blood Pressure Mean 108 104 Pulse Ox 98 98 Oxygen Delivery Method Room Air Weight Weight: 184 lb 15.485 oz Body Mass Index (BMI) 27.3 Physical Exam Const alert, oriented x3 and no apparent distress General Appearance: cooperative and well developed HEENT normocephalic, head/scalp atraumatic, moist oral mucous membranes and oropharynx normal Eyes PERRL and EOMs intact bilaterally Neck no lymphadenopathy and supple General: trachea midline Lymph Lymphatic: no lymphadenopathy noted Resp normal respiratory effort, normal air movement and clear to auscultation bilaterally Cardio regular rate, regular rhythm, S1 normal heart sound, S2 normal heart sound and no murmurs GI normal to inspection, nondistended, normoactive bowel sounds and soft to palpation Extremity normal capillary refill, no clubbing, cyanosis or edema and no calf tenderness General Extremity: no tenderness to palpation of joints or extremities Skin General Skin Exam: no breakdown and turgor normal Neuro CN's II-XII intact bilaterally, no focal motor deficits, no sensory deficits noted and deep tendon reflexes 2+ bilaterally Motor Exam: strength 5/5 throughout and general weakness Psych thought process normal, cooperative and affect normal Appearance: appropriate Results Lab / Micro Data 08/31/23 07:55 08/31/23 07:55 Labs: Laboratory Results - last 24 hr 08/30/23 07:12: WBC 13.9 H, RBC 4.31 L, Hgb 13.8, Hct 40.1, MCV 93.0, MCH 32.0, MCHC 34.4, RDW Std Deviation 41.4, RDW Coeff of Yoan 12.0, Plt Count 279, MPV 9. 5, Immature Gran % (Auto) 0.400, Neut % (Auto) 79.7 H, Lymph % (Auto) 11.6 L, [place] % (Auto) 7.3, Eos % (Auto) 0.6, Baso % (Auto) 0.4, Absolute Neuts (auto) 11.1 H, Absolute Lymphs (auto) 1.61, Nucleated RBC % 0, Sodium 133 L, Potassium 4.4, Chloride 102, Carbon Dioxide 27.0, Anion Gap 4 L, BUN 16, Creatinine 0.91, Estim Creat Clear Calc 60.43, Est GFR (MDRD) Af Amer 103, Est GFR (MDRD) Non-Af 85, BUN/Creatinine Ratio 17.7, Glucose 193 H, Calcium 9.4, Troponin I High Sens 163 H* Imagaing Radiology Impression Chest X-Ray 08/30/23 07:30 IMPRESSION: No radiographic evidence of acute cardiopulmonary disease. Electronically Signed: Babita Bishop MD at 8:13 EST , Assessment & Plan Assessment/Plan (1) Elevated troponin: (2) Chest pain: PLAN: Plan #Hypertensive urgency * patient admitted with BP up to 200s systolic. BP came down on its own to 160s systolic * initial troponin was also elevated. * resume BP meds- carvedilol and losartan * IV hydralazine prn * #Chest pain to rule out ACS * troponins also elevated, in the 130s. Chest pain is pressure like * he does have a history of CAD s/p stents * will cycle troponins. * CXR showed no acute cardiopulmonary process nad EKG showed paced rhythm. * SL nitroglycerin prn. PO aspirin 81mg daily nad high intensity statin as well as carvedilol. * also on imdur. * get 2D echo * * #BPH: on finasteride. DVT prophylaxis: lovenox Code status: full code * Patient counseled extensively about different types of CODE STATUS including full code, DNR CCA and DNR CCA. Patient elects to be full code. * Total [id number] time 17 minutes. * Charges/Coding Visit Charges Inpatient E&M: 56242 Init Hosp L3 Procedures Hospitalists Procedures: 77188 Advncd Care Plan 30 Min
[2023-08-30] MEDS: Isosorbide Mononitrate 30 MG Tablet PO (08:58)
[2023-08-30] MEDS: Losartan Potassium 100 MG Tablet PO (08:58)
[2023-08-30] MEDS: Carvedilol 25 MG Tablet PO ×2 (08:58→17:22)
[2023-08-30] MEDS: Finasteride 5 MG Tablet PO (08:58)
[2023-08-30 09:19] LABS: Reflex Troponin-HS? (from REC) Y
[2023-08-30 10:53] LABS: Troponin-I HS 176 pg/mL (3.0-78.0)
[2023-08-30 14:04] LABS: Troponin-I HS 152 pg/mL (3.0-78.0)
[2023-08-30] MEDS: Atorvastatin Calcium 40 MG Tablet PO (20:44)
[2023-08-31 00:22] VITALS: BP 129/38; PULSE 60; RESP 15; TEMP 36.8; O2SAT 96
--- NOTE | 2023-08-31 05:55 | EKG12_ITS ---
Test Reason : AM EKG Blood Pressure : / mmHG Vent. Rate : 062 BPM Atrial Rate : 062 BPM P-R Int : 178 ms QRS Dur : 160 ms QT Int : 524 ms P-R-T Axes : -26 -55 110 degrees QTc Int : 531 ms AV dual-paced rhythm with occasional ventricular-paced complexes Abnormal ECG Confirmed by KATHLEEN NGUYỄN, KARINA ([id number]), field map editor SAAD GILBERT ([id number]) on 09/01/2023 9:23:57 AM Referred By: Confirmed By:KARINA WANG MD
[2023-08-31] MEDS: Losartan Potassium 100 MG Tablet PO (06:21)
[2023-08-31] MEDS: Aspirin E.C. 81 MG Tablet PO (06:21)
[2023-08-31 06:24] VITALS: BP 145/68; PULSE 65; RESP 15; TEMP 36.5; O2SAT 100
[2023-08-31 08:21] LABS: Absolute Lymphocyte Count 1.62 X10^3/uL (0.83-4.51); Absolute Neutrophil Count 5.8 X10^3/uL (2.0-7.7); Basophil# 0.05 X10^3/uL; Basophil% 0.6 % (0-1); Eosinophil# 0.22 X10^3/uL; Eosinophils% 2.6 % (0-5); Hematocrit 40.7 % (40-54); Hemoglobin 13.6 g/dL (13.0-16.5); Lymphocyte # 1.62 X10^3/ul (0.83-4.51); Lymphocyte % 18.8 % (19-41); Mean Corp Hgb Conc 33.4 g/dL (32-36); Mean Corpuscular Hgb 31.6 pg (27.0-32.0); Mean Corpuscular Volume 94.4 fL (80-94); Mean Platelet Vol. 9.7 fl (6.2-12.0); Monocyte# 0.87 X10^3/uL; Monocyte% 10.1 % (0-10); NRBC Flagged by Analyzer 0 % (0-5); Neutrophil # 5.82 X10^3/uL (2.7-7.7); Neutrophil % 67.4 % (47-70); Platelet Count 236 K/mm3 (150-450); RBC Distribution Width CV 12.2 % (11.6-14.6); RBC Distribution Width SD 42.5 fl (35.1-43.9); Red Blood Count 4.31 M/mm3 (4.6-6.2); White Blood Count 8.6 K/mm3 (4.4-11.0)
[2023-08-31 09:17] LABS: BUN 14 mg/dL (7-18); BUN/Creat Ratio 16.3 RATIO (10-20); Calcium,Total 8.8 mg/dL (8.5-10.1); Chloride 104 mmol/L (98-107); Creatinine, Serum 0.86 mg/dL (0.70-1.30); EST Glomerular Filtration Rate 90 mL/min (>60); Est Glom Filt Rate - Afr Amer 109 mL/min (>60); Estimated Creatinine Clearance 63.94 ml/min; Glucose 139 mg/dL (74-106); Potassium 3.9 mmol/L (3.5-5.1); Sodium Level 133 mmol/L (136-145)
[2023-08-31 09:18] LABS: Anion Gap 5 (5-15)
--- NOTE | 2023-08-31 10:11 | STRESSREP ---
Stress Test Report Pharmacologic myocardial perfusion stress test. 83-year-old male with a history of coronary artery disease and status post pacemaker placement and abnormal cardiac enzymes Resting EKG demonstrates sinus rhythm with ventricular pacing with a rate of 88 bpm. Resting blood pressure is 144/92 mmHg. 0.4 mg of regadenoson was infused per usual protocol followed by rapid intravenous saline flush injection. Continuous EKG monitoring was performed. The maximum heart rate was 88 bpm which was 64% of max impacted heart rate the maximum workload was 1 metabolic equivalent. At rest there were no ST or T wave changes noted to suggest ischemia and at peak infusion nonspecific ST changes were noted which did not meet the criteria for ischemia. No clinical angina is noted. The final blood pressure was 142/62 mmHg. Myocardial perfusion protocol. 11.5 mCi of technetium 99m sestamibi was injected at rest. 0.4 mg of regadenoson was infused per usual protocol. At peak infusion 34.4 mCi of technetium 99m sestamibi was injected stress images were obtained stress and rest images were reconstructed and compared in the short axis vertical long and horizontal long axis. Gated images were also obtained. Perfusion SPECT analysis: Review of the stress images demonstrate normal uptake of tracer noted in all areas of the myocardium. There is mild reduction in the mid anteroseptal wall. The resting images similar demonstrated normal uptake of tracer noted in all areas of the myocardium. Mild reduction is also noted in the mid anterior septal wall likely suggestive of pacemaker activation. No areas of reversibility are noted to suggest ischemia and no previous infarct is noted. Gated SPECT analysis: The gated ejection fraction is 59%. Conclusion: Normal pharmacologic myocardial perfusion stress test. Preserved ejection fraction.
--- NOTE | 2023-08-31 10:30 | CASEMGMT ---
RN CM Face to Face with patient for initial transition planning/care coordination assessment. RN CM introduced self and role at [facility]. Patient lying in bed, alert and oriented. Patient willing to participate in assessment and is able to answer all questions appropriately. Care providers, pharmacy, and demographics verified. Patient wishes to discharge home, denies need for home health at this time. Patient states he has no further needs or concerns at this time. CM to follow for discharge planning needs that may arise. PCP: Orly Specialists: Toya, embedded systems software engineer; Preferred Pharmacy: [facility] Insurance: [employer] Prescription Benefit: yes Living Will/HPOA: yes, Cheryl Lindquist LNOK: Living Arrangements: Patient lives with in a single story home. Patient states he is independent at home. Transportation: self, DME/HHC: Patient denies need for DME in the home. No previous HHC or SNF Disposition Plan: Patient to discharge home with family support and follow-up plans in place. Courtney RIBEIRO, RN, CM
[2023-08-31 10:45] VITALS: BP 148/69; PULSE 62; RESP 18; TEMP 37.1; O2SAT 99
[2023-08-31] MEDS: Isosorbide Mononitrate 30 MG Tablet PO (10:48)
[2023-08-31] MEDS: Finasteride 5 MG Tablet PO (10:48)
[2023-08-31] MEDS: Carvedilol 25 MG Tablet PO (10:49)
[2023-08-31] MEDS: Cholecalciferol (VIT D3) 25 MCG TABLET (1,000 UNITS) 50 MCG PO (10:49)
--- NOTE | 2023-08-31 11:31 | DS.PCM_ITS ---
Providers Date of Admission: 08/30/23 Date of Discharge: 08/31/23 Primary Care Physician: Dr. Evelio Villalba MD Reason For Visit: HYPERTENSIVE URGENCY / CHEST PAIN Diagnosis Discharge Diagnosis (1) Elevated troponin: Status: Acute Code(s): R79.89 - Other specified abnormal findings of blood chemistry (2) Chest pain: Status: Acute Code(s): R07.9 - Chest pain, unspecified Plan #Hypertensive urgency * patient admitted with BP up to 200s systolic. BP came down on its own to 160s systolic * initial troponin was also elevated. * resume BP meds- carvedilol and losartan * IV hydralazine prn * #Chest pain to rule out ACS * troponins also elevated, in the 130s. Chest pain is pressure like * he does have a history of CAD s/p stents * will cycle troponins. * CXR showed no acute cardiopulmonary process nad EKG showed paced rhythm. * SL nitroglycerin prn. PO aspirin 81mg daily nad high intensity statin as well as carvedilol. * also on imdur. * get 2D echo * * #BPH: on finasteride. DVT prophylaxis: lovenox Code status: full code * * # Medications at Discharge Home Medications aspirin 81 mg tablet,delayed release 81 mg PO DAILY ##0 05/02/20 cholecalciferol (vitamin D3) 50 mcg (2,000 unit) capsule 50 mcg PO DAILY supplement 02/05/21 atorvastatin 40 mg tablet 40 mg PO QHS #90 tabs 09/24/22 isosorbide mononitrate 30 mg tablet,extended release 24 hr 30 mg PO DAILY heart #90 tabs 10/18/22 losartan 100 mg tablet 100 mg PO DAILY BP #90 tabs 12/13/22 carvedilol 25 mg tablet 25 mg PO BID this is a dose increase #180 tabs 01/31/23 finasteride 5 mg tablet 5 mg PO DAILY prostate #90 tabs 06/23/23 Hospital Course Operations None Procedures Stress test Summary of Care Provided Minutes Spent on Discharge: 50 Hospital Course: MICHAEL HENRY, is a 83 M with a PMH as outlined who presents via the ED on 08/30/2023 with a complaint of chest pain and pressure. He had a good dinner hte day before he came in and said he ate a sausage rama and baked potato. He subsequently felt bloated, nad developed chest pain and pressure. He says he also had associated irregular beating of his heart. He also had tinnitus. He felt this way throughout the night and couldnt sleep much, so he came in to the ED. He denied any shortness of breath, dizziness or lightheadedness, nausea or vomiting. Review of systems is otherwise negative. Vitals in the ED were BP of 205/60 when he came in to the ED, with DC of 97, temp of 96.6F and RR of 17. He was saturating at 98% on room air. BP came down to 167/73 on its own. CBC showed hb of 13.8, wbc of 13.9, platelets of 279. CBC showed sodium of 133 with potassium of 4.4 and Cr of 0.91. Initial troponin was 163. EKG showed a paced rhythm, and CXR showed no acute cardiopulmonary process. He was admitted to be managed for hypertensive urgency with elevated troponins, to rule out ACS. Patient was placed back on his home BP meds and his blood pressure trended down. His troponins were essentially flat and did not really increase. Chest pain or pressure did not recur. This was discussed with his primary heavy machinery operator Dr. Lopez who recommended stress test. Patient had a nuclear stress test on 08/31/2023 which was negative for any evidence of ischemia. He remained stable and blood pressure improved markedly. He was therefore discharged on 08/31/2023. He is follow-up with his PCP and heavy machinery operator within 1 to 2 weeks. Patient seen and examined prior to discharge. He felt well and had no active complaints. Review of systems otherwise negative. Labs and vitals reviewed. Home medication reviewed and reconciled. Physical Exam Const alert, oriented x3 and no apparent distress General Appearance: cooperative, comfortable, well kempt and well developed HEENT normocephalic, head/scalp atraumatic, hearing grossly normal bilaterally, moist oral mucous membranes and oropharynx normal Mouth: oral and palatal mucosa normal Eyes PERRL and EOMs intact bilaterally Neck no lymphadenopathy and supple General: trachea midline Lymph Lymphatic: no lymphadenopathy noted Resp normal respiratory effort, normal air movement and clear to auscultation bilaterally Cardio regular rate, regular rhythm, S1 normal heart sound, S2 normal heart sound and no murmurs GI normal to inspection, nondistended, normoactive bowel sounds and soft to palpation Extremity normal to inspection, full ROM, normal capillary refill, no clubbing, cyanosis or edema and no calf tenderness General Extremity: no tenderness to palpation of joints or extremities Skin no rashes or lesions noted General Skin Exam: no breakdown and turgor normal Neuro oriented x3, CN's II-XII intact bilaterally, moves all extremities, no focal motor deficits, no sensory deficits noted and deep tendon reflexes 2+ bilaterally Sensorium / Orientation: awake Motor Exam: strength 5/5 throughout and general weakness Psych thought process normal, cooperative and affect normal Appearance: appropriate Weight / BMI Weight Weight: 175 lb 4.28 oz Body Mass Index (BMI) 25.9 ABG / Lab / Microbiology Data 08/31/23 07:55 08/31/23 07:55 Laboratory: Laboratory Results - last 24 hr 08/30/23 13:32: Troponin I High Sens 152 H* 08/31/23 07:55: WBC 8.6, RBC 4.31 L, Hgb 13.6, Hct 40.7, MCV 94.4 H, MCH 31.6, MCHC 33.4, RDW Std Deviation 42.5, RDW Coeff of Yoan 12.2, Plt Count 236, MPV 9.7, Immature Gran % (Auto) 0.500, Neut % (Auto) 67.4, Lymph % (Auto) 18.8 L, [place] % (Auto) 10.1 H, Eos % (Auto) 2.6, Baso % (Auto) 0.6, Absolute Neuts (auto) 5.8, Absolute Lymphs (auto) 1.62, Nucleated RBC % 0, Sodium 133 L, Potassium 3.9, Chloride 104, Carbon Dioxide 24.0, Anion Gap 5, BUN 14, Creatinine 0.86, Estim Creat Clear Calc 63.94, Est GFR (MDRD) Af Amer 109, Est GFR (MDRD) Non-Af 90, BUN/Creatinine Ratio 16.3, Glucose 139 H, Calcium 8.8 D/C Instructions Discharge Diet: Low fat / Low cholesterol Discharge Activity: Return to Normal Activity Weight Bearing Status: Weight bearing as tolerated Call your doctor if you observe: Fever of 101 or Higher, Shortness of breath, Dizziness, Swelling in the ankles, Chest pain and Increased palpitations (irregular heartbeat) Meaningful Use Info Meaningful Use Diagnoses (Choose all that apply): None applicable Discharge Plan Admission Admit Date/Time: 08/30/23 09:01 Primary Reason for Your Visit: hypertensive urgency, chest pressure Attending Provider: Saumya London Primary Care Provider: Evelio Villalba Instructions Patient Instructions: ED High Blood Pressure Hypertension Discharge Orders/Prescriptions Prescriptions: Continued cholecalciferol (vitamin D3) 50 mcg (2,000 unit) capsule 50 mcg PO DAILY aspirin 81 MG tablet 81 mg PO DAILY Qty: 0 0RF atorvastatin 40 mg tablet 40 mg PO QHS Qty: 90 3RF isosorbide mononitrate 30 mg tablet extended release 24 hr 30 mg PO DAILY Qty: 90 3RF losartan 100 mg tablet 100 mg PO DAILY Qty: 90 3RF carvedilol 25 mg tablet 25 mg PO BID Qty: 180 3RF Rx Instructions: must administer with a meal/food finasteride 5 mg tablet 5 mg PO DAILY Qty: 90 3RF Referrals / Follow Up: Evelio Villalba MD [Primary Care Provider] - Within 1 Week Disposition Disposition (needs filled in before D/C Order can be placed): Home, Self Care Charges/Coding Visit Charges Inpatient E&M: 09568 Disch Hosp >30min
--- NOTE | 2023-08-31 12:30 | PHA.DC.MR.R ---
Pharmacy [place] Med Reconciliation Pharmacy Service has performed discharge medication reconciliation for this patient. The patient's discharge medication list was reviewed for discrepancies and discrepancies were resolved. Medications at Discharge Home Medications aspirin 81 mg tablet,delayed release 81 mg PO DAILY ##0 05/02/20 cholecalciferol (vitamin D3) 50 mcg (2,000 unit) capsule 50 mcg PO DAILY supplement 02/05/21 atorvastatin 40 mg tablet 40 mg PO QHS #90 tabs 09/24/22 isosorbide mononitrate 30 mg tablet,extended release 24 hr 30 mg PO DAILY heart #90 tabs 10/18/22 losartan 100 mg tablet 100 mg PO DAILY BP #90 tabs 12/13/22 carvedilol 25 mg tablet 25 mg PO BID this is a dose increase #180 tabs 01/31/23 finasteride 5 mg tablet 5 mg PO DAILY prostate #90 tabs 06/23/23
== END 2023-08-31 14:06 | disposition home or self-care (01) | DRG 313 ==
LOC: ED 08:14 → PCU 09:41
PROVIDERS: Admitting Provider Student in an Organized Health Care Education/Training Program; Emergency Provider Emergency Medicine; PCP Family Medicine; Visit Provider Student in an Organized Health Care Education/Training Program
DX: R07.9 Chest pain, unspecified (principal); E78.5 Hyperlipidemia, unspecified; I16.0 Hypertensive urgency; I10 Essential (primary) hypertension; I25.10 Atherosclerotic heart disease of native coronary artery without angina pectoris; I25.2 Old myocardial infarction; R79.89 Other specified abnormal findings of blood chemistry; Z95.5 Presence of coronary angioplasty implant and graft; I49.3 Ventricular premature depolarization; R77.8 Other specified abnormalities of plasma proteins; Z87.891 Personal history of nicotine dependence; Z66 Do not resuscitate; N40.0 Benign prostatic hyperplasia without lower urinary tract symptoms; Z79.82 Long term (current) use of aspirin
CPT/HCPCS: 36415; 71045; 78452; 80048; 84484; 85025; 93005; 93017; 99285; A9500; A4216; J2785

== ENCOUNTER 2023-09-04 08:23 | Emergency (ER) | payer MEDICARE, SELFPAY ==
[2023-09-04 08:24] VITALS: BP 176/74; PULSE 85; RESP 18; TEMP 36.1; O2SAT 100; BMI 26.2
--- NOTE | 2023-09-04 08:52 | ED.VIS.GI ---
HPI HPI - GI History of Present Illness Chief Complaint: Abd Pain Informant: patient Abdominal Pain/Flank Pain Onset: Today Context: Gradual Onset Timing: Intermittent Quality: Cramping Location: RUQ Worsened by: Nothing Relieved by: Nothing Nausea/Vomiting/Emesis GI Symptom: Negative for Nausea or Vomiting Diarrhea/Melena/Hematochezia GI Symptom: Negative for Diarrhea, Melena or Hematochezia Associated Symptoms Associated Symptoms: Negative for Dysuria, Frequency or Hematuria Narrative Narrative: Patient presents with abdominal pain that began earlier this morning. Patient states his pain was there when he woke up around 4 AM today. Patient states it has been intermittent. Patient describes it as cramping. Patient states it is mainly over the right upper abdomen. Patient states nothing makes it better and nothing makes it worse. Patient states he did eat some vanilla wafers and peanut butter last night before going to bed. Patient denies any nausea or vomiting. Patient denies any diarrhea, melena, or hematochezia. Patient denies any urinary complaints. Patient denies any fevers. Patient admits to occasional hot flashes in his upper chest. Prior similar symptoms: Yes PFSH PFSH Medical History Accelerated hypertension Atherosclerosis of coronary artery without angina pectoris BPH (benign prostatic hyperplasia) Elevated troponin Essential (primary) hypertension History of non-ST elevation myocardial infarction (NSTEMI) (06/21/21) Hyperlipemia Hypokalemia Left ventricular diastolic dysfunction Multiple premature ventricular complexes Third degree heart block (06/20/21) Home Medications aspirin 81 mg tablet,delayed release 81 mg PO DAILY ##0 05/02/20 [Rx Last Taken 06/20/21] cholecalciferol (vitamin D3) 50 mcg (2,000 unit) capsule 50 mcg PO DAILY supplement 02/05/21 [History Last Taken 06/20/21] atorvastatin 40 mg tablet 40 mg PO QHS #90 tabs 09/24/22 [Rx Last Taken Unknown] isosorbide mononitrate 30 mg tablet,extended release 24 hr 30 mg PO DAILY heart #90 tabs 10/18/22 [Rx Last Taken Unknown] losartan 100 mg tablet 100 mg PO DAILY BP #90 tabs 12/13/22 [Rx Last Taken Unknown] carvedilol 25 mg tablet 25 mg PO BID this is a dose increase #180 tabs 01/31/23 [Rx Last Taken Unknown] finasteride 5 mg tablet 5 mg PO DAILY prostate #90 tabs 06/23/23 [Rx Last Taken Unknown] hydrocodone-acetaminophen 5-325mg 5mg-325mg 1 tab PO Q6H PRN PRN Pain 3 days #10 TABLETS 09/04/23 [Rx Last Taken Unknown] ondansetron 4 mg disintegrating tablet 4 mg PO Q8H PRN PRN Nausea #10 tabs 09/04/23 [Rx Last Taken Unknown] Allergy/AdvReac Type Severity Reaction Status Date / Time No Known Allergies Allergy Verified 09/04/23 08:24 Family History Father Heart disease Mother Hypertension Surgical History History of cataract surgery History of coronary artery stent placement (12/25/19) History of left heart catheterization (06/22/21) 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) History of tonsillectomy Social History household members: spouse housing: house Smoking Status: Former smoker substance use type: does not use diet: low salt ROS ROS ED Constitutional Constitutional ED: Denies chills or fever(s) Eyes Eyes: Denies blurry vision or change in vision ENT ENT ED: Denies rhinorrhea or sore throat Cardiovascular Cardiovascular: Denies chest pain or palpitations Respiratory/Chest Respiratory/Chest: Denies cough or dyspnea Gastrointestinal Gastrointestinal: Reports abdominal pain; Denies nausea or vomiting Genitourinary Genitourinary ED: Denies dysuria or hematuria Musculoskeletal Musculoskeletal: Reports back pain; Denies neck pain Integumentary Denies abscess or rash Neurologic Neurologic: Denies headache(s) or weakness Allergic/Immunologic Allergic/Immunologic ED: Denies mouth swelling or urticaria EXAM Physical Exam Const Vital Signs: 09/04/23 08:24 09/04/23 11:16 Temperature 96.9 F L Temperature Source Temporal Pulse Rate 85 68 Respiratory Rate 18 15 Blood Pressure 176/74 H 124/79 H Blood Pressure Mean 108 94 Pulse Ox 100 98 Oxygen Delivery Method Room Air Room Air Positive well nourished and well developed General Appearance ED: well developed and NAD HEENT Reports moist mucous membranes Neck supple and no JVD Resp normal respiratory effort and clear to auscultation bilaterally Cardio regular rate and regular rhythm GI non-distended Palpation: soft and tender RUQ and Ulloa's sign; Negative for guarding or rebound tenderness present Neuro CN's II-XII intact bilaterally, moves all extremities and no sensory deficits noted Sensorium / Orientation: alert Motor Exam: strength 5/5 throughout Psych mental status grossly normal and thought process normal MDM MDM MDM Narrative Medical decision making narrative: Differential diagnosis includes cholecystitis, cholelithiasis, pancreatitis, peptic ulcer disease, duodenal ulcer, pyelonephritis, bowel obstruction, perforation, and gastroenteritis. CBC will be obtained to assess for leukocytosis and anemia. Comprehensive metabolic profile will be obtained to assess for hepatic function, renal function, and electrolyte abnormality. Lipase will be obtained to assess for pancreatitis. Urinalysis will be obtained to assess for urinary tract infection and hematuria. CT scan of the abdomen pelvis will be obtained to assess for bowel obstruction, perforation, cholecystitis, cholelithiasis, and pancreatitis. Lab Data Attestation: I reviewed the patient's lab results. Lab results narrative: CBC was reviewed and was within normal limits. Comprehensive metabolic profile was reviewed. Glucose was slightly elevated at 149. Total bilirubin was normal. AST, ALT, and alkaline phosphatase were all normal. Lipase was reviewed and was normal. Urinalysis was reviewed. There is no evidence of urinary tract infection or hematuria. Labs: Laboratory Results - last 24 hr 09/04/23 09/04/23 09:09 09:31 WBC 7.5 RBC 4.43 L Hgb 14.0 Hct 41.3 MCV 93.2 MCH 31.6 MCHC 33.9 RDW Std Deviation 42.1 RDW Coeff of Yoan 12.1 Plt Count 210 MPV 9.6 Immature Gran % (Auto) 0.500 Neut % (Auto) 76.2 H Lymph % (Auto) 11.5 L [place] % (Auto) 8.7 Eos % (Auto) 2.4 Baso % (Auto) 0.7 Absolute Neuts (auto) 5.7 Absolute Lymphs (auto) 0.86 Nucleated RBC % 0 Sodium 133 L Potassium 3.8 Chloride 101 Carbon Dioxide 27.0 Anion Gap 5 BUN 19 H Creatinine 0.90 Estim Creat Clear Calc 61.10 Est GFR (MDRD) Af Amer 103 Est GFR (MDRD) Non-Af 85 BUN/Creatinine Ratio 21.0 H Glucose 149 H Calcium 9.8 Total Bilirubin 0.80 AST 17 ALT 31 Alkaline Phosphatase 65 Total Protein 7.7 Albumin 4.0 Globulin 3.7 Albumin/Globulin Ratio 1.1 Lipase 54 Urine Color Yellow Urine Clarity Clear Urine pH 7.0 Ur Specific [place] 1.020 Urine Protein 15 H Urine Glucose (UA) Normal Urine Ketones Negative Urine Occult Blood 25 H Urine Nitrite Negative Urine Bilirubin Negative Urine Urobilinogen Normal Ur Leukocyte Esterase Negative Urine RBC 0-5 SEEN Urine WBC 0 SEEN Ur Squamous Epith Cells 0 SEEN Urine Bacteria 0 SEEN Urine Mucus 0 SEEN Radiography Diagnostic Testing: Clinical Impression(s) from Imaging Studies Abdomen/Pelvis CT 09/04/23 08:58 IMPRESSION: 1. Probable acute cholecystitis abnormal gallbladder wall edema and suspicious partial obstructing gallstone in the gallbladder neck. Advise clinical correlation. 2. Large hepatic hemangioma in the posterior aspect of segment 8 and the adjacent the segment 7 liver parenchyma and smaller hepatic hemangiomas in segment 3 and segment 4. 3. Abnormal lobulated enlargement of the central lobe of the prostate gland with heterogeneous densities causing lobulated deformity of the posterior urinary bladder wall. Please correlate with PSA levels. MRI of the prostate gland to be very helpful for further evaluation. 4. 1.8 cm hypodense mass in the right adrenal gland. ACR White Paper guidelines (Freedom et al. JACR 2017; 14(8):0860-9911) suggest the following. If there is no history of malignancy consider a follow-up low dose, non-contrast adrenal CT or chemical-shift adrenal MRI in 12 months. If there is a history of malignancy recommend a low dose, non-emergent, non-contrast adrenal CT or chemical-shift adrenal MRI follow-up study. Electronically Signed: Bebeto Klein MD at 11:25 EST , CT scan of the abdomen and pelvis was obtained. There is acute cholecystitis with gallbladder wall edema. There is a partially obstructing gallstone in the gallbladder neck. There is no evidence of bowel obstruction or perforation. There is no free air or free fluid. This was interpreted by the radiologist and was also independently reviewed by myself. Treatment and Re-Evaluation :: Patient was given IV fluids and Zofran. Patient was also ordered morphine but he did not want this. Patient is feeling better on reevaluation. Patient was advised of his findings. Case was discussed with Dr. Herman. She stated that since he has a hemangioma next to the gallbladder fossa, she would not be able to perform the surgery. She recommended having the patient follow-up with a hepatic surgeon. Patient states he feels better and wants to go home. Patient was to follow-up as an outpatient. Patient was instructed to avoid fried foods, fatty foods, greasy foods. Patient was given a prescription for a short course of Eclectic to take as needed for pain. Patient was given a referral for hepatic surgeon. Patient understood and was agreeable with the plan. All questions were answered. Discharge Plan Triage Chief Complaint: Abd Pain ED Provider: Toni Hurley Dx/Rx/DC Orders Clinical Impression: Acute cholecystitis, Cholelithiasis Instructions: ED Gallstones with Biliary Colic Prescriptions: New hydrocodone-acetaminophen [hydrocodone-acetaminophen] 5-325 mg tablet 1 tab PO Q6H PRN PRN (Reason: Pain) 3 Days Qty: 10 0RF ondansetron [ondansetron] 4 mg tablet,disintegrating 4 mg PO Q8H PRN PRN (Reason: Nausea) Qty: 10 0RF No Action cholecalciferol (vitamin D3) 50 mcg (2,000 unit) capsule 50 mcg PO DAILY aspirin 81 MG tablet 81 mg PO DAILY Qty: 0 0RF atorvastatin 40 mg tablet 40 mg PO QHS Qty: 90 3RF isosorbide mononitrate 30 mg tablet extended release 24 hr 30 mg PO DAILY Qty: 90 3RF losartan 100 mg tablet 100 mg PO DAILY Qty: 90 3RF carvedilol 25 mg tablet 25 mg PO BID Qty: 180 3RF Rx Instructions: must administer with a meal/food finasteride 5 mg tablet 5 mg PO DAILY Qty: 90 3RF Primary Care Provider: Evelio Villalba Referrals: Evelio Villalba MD [Primary Care Provider] - Activity Restrictions/Additional Instructions: The office for Dr. Barbosa, surgeon at [facility] will contact you tomorrow to schedule follow-up appointment. Disposition Disposition: Home, Self Care
--- NOTE | 2023-09-04 08:58 | CT_ITS ---
EXAM: CT ABDOMEN AND PELVIS WITH INTRAVENOUS CONTRAST CLINICAL INDICATION: Abdominal pain. TECHNIQUE: Helically acquired images were obtained of the abdomen and pelvis with intravenous contrast. This CT exam was performed using one or more of the following dose reduction techniques: automated exposure control, adjustment of the mA and/or kV according to patient size, and/or use of iterative reconstruction technique. CONTRAST: Oral Gastrografin and 100mL of IV [id number] RADIATION DOSE: CTDIvol = 16.54 mGy, DLP = 1852.00 mGy-cm COMPARISON: No relevant prior studies available. FINDINGS: LOWER THORAX: Unremarkable. Lung bases are clear. No cardiomegaly. No significant pericardial effusion. ABDOMEN: LIVER: Prominent hyperdense contrast enhancing lesion in the posterior aspect of segment 8 and the adjacent segment 7 of the liver parenchyma with peripheral puddling of contrast in the upper portion. There is also hyperdense contrast enhancement in segment 3 and segment 4 of the liver parenchyma. On delayed post contrast images, the hyperdense attenuation lesions blended imperceptibly with normal liver parenchyma. These are most likely hemangiomas. GALLBLADDER AND BILE DUCTS: Abnormal pericholecystic fluid/gallbladder wall edema. Small solitary calcified gallstone in the gallbladder fundus and 4.5 mm gallstone in the gallbladder neck. No intra- or extrahepatic biliary ductal dilation. PANCREAS: Unremarkable. No focal cystic or solid mass. SPLEEN: Unremarkable. Normal size without focal cystic or solid mass. ADRENALS: 1.8 cm hypodense mass in the right adrenal gland with CT number of 27.[address] number did not change on the delayed postcontrast images. Normal left adrenal gland. KIDNEYS AND URETERS: Unremarkable. Normal renal size and position. No hydronephrosis. Normal and symmetrical nephrograms. Normal symmetrical excretion of contrast into the renal calyces and ureters. STOMACH AND BOWEL: Unremarkable. No stomach or bowel distention. No focal inflammatory change. PELVIS: APPENDIX: Normal. BLADDER: Normal excretion of contrast into the urinary bladder. REPRODUCTIVE: Enlarged central lobe of prostate gland with lobulated contour causing lobulated deformity of the posterior urinary bladder wall. ABDOMEN and PELVIS: INTRAPERITONEAL SPACE: Unremarkable. No ascites or other fluid collection. No free air. BONES/JOINTS: Degenerative disc space height narrowing at L2-L3 down to L5-S1 disc space levels, pronounced at L4-L5 and L5-S1 disc space levels. No suspicious lytic or blastic abnormality. SOFT TISSUES: Unremarkable. No discrete abdominal or pelvic wall hernia. VASCULATURE: Scattered calcified plaques along the abdominal aorta and lower descending thoracic aorta. Calcified plaques in the infrarenal abdominal aorta. Calcified plaques in the iliac arteries. No abdominal aortic aneurysm. LYMPH NODES: Unremarkable. No enlarged lymph nodes. TUBES, LINES AND DEVICES: Dual-chamber pacing lead tips in the right atrium and right ventricle causing streak artifacts. Normal cardiac size. Normal pericardium. CT/Abdomen/Pelvis WITH Contrast IMPRESSION: 1. Probable acute cholecystitis abnormal gallbladder wall edema and suspicious partial obstructing gallstone in the gallbladder neck. Advise clinical correlation. 2. Large hepatic hemangioma in the posterior aspect of segment 8 and the adjacent the segment 7 liver parenchyma and smaller hepatic hemangiomas in segment 3 and segment 4. 3. Abnormal lobulated enlargement of the central lobe of the prostate gland with heterogeneous densities causing lobulated deformity of the posterior urinary bladder wall. Please correlate with PSA levels. MRI of the prostate gland to be very helpful for further evaluation. 4. 1.8 cm hypodense mass in the right adrenal gland. ACR White Paper guidelines (Freedom et al. JACR 2017; 14(8):9715-5037) suggest the following. If there is no history of malignancy consider a follow-up low dose, non-contrast adrenal CT or chemical-shift adrenal MRI in 12 months. If there is a history of malignancy recommend a low dose, non-emergent, non-contrast adrenal CT or chemical-shift adrenal MRI follow-up study. Electronically Signed: Bebeto Klein MD at 11:25 EST ,
[2023-09-04 09:21] LABS: Absolute Lymphocyte Count 0.86 X10^3/uL (0.83-4.51); Absolute Neutrophil Count 5.7 X10^3/uL (2.0-7.7); Basophil# 0.05 X10^3/uL; Basophil% 0.7 % (0-1); Eosinophil# 0.18 X10^3/uL; Eosinophils% 2.4 % (0-5); Hematocrit 41.3 % (40-54); Lymphocyte # 0.86 X10^3/ul (0.83-4.51); Lymphocyte % 11.5 % (19-41); Mean Corp Hgb Conc 33.9 g/dL (32-36); Mean Corpuscular Hgb 31.6 pg (27.0-32.0); Mean Corpuscular Volume 93.2 fL (80-94); Mean Platelet Vol. 9.6 fl (6.2-12.0); Monocyte# 0.65 X10^3/uL; Monocyte% 8.7 % (0-10); NRBC Flagged by Analyzer 0 % (0-5); Neutrophil % 76.2 % (47-70); Platelet Count 210 K/mm3 (150-450); RBC Distribution Width CV 12.1 % (11.6-14.6); RBC Distribution Width SD 42.1 fl (35.1-43.9); Red Blood Count 4.43 M/mm3 (4.6-6.2); White Blood Count 7.5 K/mm3 (4.4-11.0)
[2023-09-04] MEDS: Ondansetron 4 MG/2 ML Vial IV (09:28)
[2023-09-04] MEDS: 0.9% Normal Saline (1000mL) 1,000 ML 1000 ML IV (09:28)
[2023-09-04 09:32] LABS: ALB/GLOB Ratio 1.1 RATIO (0.9-2.4); AST(SGOT) 17 U/L (15-37); Alanine Aminotransfer ALT/SGPT 31 U/L (16-61); Alkaline Phosphatase 65 U/L (45-117); Anion Gap 5 (5-15); BUN 19 mg/dL (7-18); Calcium,Total 9.8 mg/dL (8.5-10.1); Chloride 101 mmol/L (98-107); EST Glomerular Filtration Rate 85 mL/min (>60); Est Glom Filt Rate - Afr Amer 103 mL/min (>60); Globulin 3.7 g/dL (2.2-4.2); Glucose 149 mg/dL (74-106); Lipase 54 U/L (13-75); Potassium 3.8 mmol/L (3.5-5.1); Protein, Total 7.7 g/dL (6.4-8.2); Sodium Level 133 mmol/L (136-145)
[2023-09-04 09:36] LABS: Bacteria 0 SEEN /hpf (None Seen); Mucous, Urine 0 SEEN /hpf (<or=2+); Squamous Epithelial Cells - UA 0 SEEN /hpf (0-5); White Blood Cells 0 SEEN /hpf (0-5)
[2023-09-04 09:52] LABS: Color, Urine Yellow (Yellow); Glucose, Dipstick Normal (Normal); Ketone-Dipstick Negative (Negative); Leukocyte Esterase-Dipstick Negative /ul (Negative); Nitrite-Dipstick Negative (Negative); Occult Blood-Urine 25 /ul (Negative); Protein-Dipstick 15 mg/dl (Negative); Urine Bilirubin Dipstick Negative (Negative); Urine Clarity Clear (Clear); Urine Urobilinogen Normal (Normal)
[2023-09-04 10:13] LABS: Red Blood Cells-Urine 0-5 SEEN /hpf (0-5)
[2023-09-04 11:16] VITALS: BP 124/79; PULSE 68; RESP 15; O2SAT 98
== END 2023-09-04 13:10 | disposition home or self-care (01) ==
PROVIDERS: Emergency Provider Emergency Medicine; PCP Family Medicine; Visit Provider Emergency Medicine
DX: K80.00 Calculus of gallbladder with acute cholecystitis without obstruction (principal); E78.5 Hyperlipidemia, unspecified; I10 Essential (primary) hypertension; Z87.891 Personal history of nicotine dependence; I25.10 Atherosclerotic heart disease of native coronary artery without angina pectoris; I25.2 Old myocardial infarction; I5A Non-ischemic myocardial injury (non-traumatic); Z79.899 Other long term (current) drug therapy; Z79.82 Long term (current) use of aspirin; N40.0 Benign prostatic hyperplasia without lower urinary tract symptoms; Z95.5 Presence of coronary angioplasty implant and graft
CPT/HCPCS: 74177; 80053; 81001; 83690; 85025; 99282; J7030; Q9967; A4216; J2405

== ENCOUNTER → 2023-09-13 | Outpatient (CLI) | payer MEDICARE, SELFPAY ==
--- NOTE | 2023-09-13 13:04 | CDU_ITS ---
Reason For Study: Left carotid bruit Rt. Velocities/BP Lt. Velocities/BP Prox CCA 62.6/8.8 cm/sec. Prox CCA 91/7.8 cm/sec. Mid CCA 84.4/11.6 cm/sec. Mid CCA 94.9/9.1 cm/sec. Dist CCA 71.1/7.8 cm/sec. Dist CCA 89.4/6.9 cm/sec. Prox ICA 52.2/8.8 cm/sec. Prox ICA 49.4/7.8 cm/sec. Mid ICA 71.1/13.5 cm/sec. Mid ICA 70.2/12.6 cm/sec. Dist ICA 76.8/14.5 cm/sec. Dist ICA 74/11.6 cm/sec. Rt. ICA/CCA = 1.08. Lt. ICA/CCA = 0.81. Prox ECA 100.3/4.7 cm/sec. Prox ECA 121.9/2.8 cm/sec. Rt. Vert. 42.9/5.9 cm/sec. Lt. Vert. 40.4/6.4 cm/sec. Right Extracranial There is homogeneous, smooth atherosclerotic plaque noted in the right common carotid artery. There is homogeneous, smooth atherosclerotic plaque noted in the right internal carotid artery. There is homogeneous, smooth atherosclerotic plaque noted in the right external carotid artery. Antegrade flow is noted in the right vertebral artery. Left Extracranial There is homogeneous, smooth atherosclerotic plaque noted in the left common carotid artery. There is heterogeneous, irregular atherosclerotic plaque noted in the left internal carotid artery. There is homogeneous, smooth atherosclerotic plaque noted in the left external carotid artery. Antegrade flow is noted in the left vertebral artery. Procedure Carotid Duplex 29706. This is a Carotid Duplex examination using B-mode, color flow and specral Doppler. Exam performed in department. VL/Carotid Duplex Ultrasound Interpretation Summary Mild (<50%) stenosis right extracranial internal carotid. Mild (<50%) stenosis left extracranial internal carotid. Patent and antegrade vertebrals bilaterally. Ordering Physician: Cristin Valdes Referring Physician: Evelio Villalba Performed By: Courtney Darden RVT
== END | disposition home or self-care (01) ==
LOC: CVS 13:03
PROVIDERS: PCP Family Medicine; Referring Provider Physician Assistant Medical; Visit Provider Physician Assistant Medical
DX: R09.89 Other specified symptoms and signs involving the circulatory and respiratory systems (principal)
CPT/HCPCS: 93880

== ENCOUNTER → 2024-12-05 | Outpatient (CLI) | payer MEDICARE, SELFPAY ==
[2024-12-05 19:45] LABS: Anion Gap 12 (5-15); BUN 18 mg/dL (4-19); Calcium,Total 9.5 mg/dL (7.6-11.0); Carbon Dioxide 21.7 mmol/L (21.0-32.0); Chloride 99 mmol/L (98-108); Cholesterol 105 mg/dL (<=200); Creatinine, Serum 0.91 mg/dL (0.70-1.20); EST Glomerular Filtration Rate 82 (>60); Glucose 105 mg/dL (70-99); High Density Lipoprotein 48 mg/dL; Low Density Lipoprotein Calc. 42 mg/dL; PSA,Total - Annual Screen 1.83 ng/mL (0.02-4.00); Potassium 4.4 mmol/L (3.3-5.1); Sodium Level 132 mmol/L (133-145); Triglycerides 76 mg/dL; Very Low Density Lipoprotein 15 mg/dL (5-40); cholesterol:hdl ratio screen 2.21
== END | disposition home or self-care (01) ==
LOC: MFPLAB 16:11
PROVIDERS: PCP Family Medicine; Referring Provider Family Medicine; Visit Provider Family Medicine
DX: Z00.00 Encounter for general adult medical examination without abnormal findings (principal)
CPT/HCPCS: 36415; 80048; 80061; 84153; G0103

== ENCOUNTER → 2025-06-10 | Outpatient (CLI) | payer MEDICARE, SELFPAY ==
[2025-06-10 19:03] LABS: Anion Gap 13 (5-15); BUN 13 mg/dL (4-19); BUN/Creat Ratio 17.7 RATIO (10-20); Calcium,Total 9.4 mg/dL (7.6-11.0); Carbon Dioxide 21.4 mmol/L (21.0-32.0); Chloride 100 mmol/L (98-108); Glucose 114 mg/dL (70-99); Potassium 4.3 mmol/L (3.3-5.1)
== END | disposition home or self-care (01) ==
LOC: MFPLAB 13:56
PROVIDERS: PCP Family Medicine; Visit Provider Family Medicine
DX: I10 Essential (primary) hypertension (principal)
CPT/HCPCS: 36415; 80048

== ENCOUNTER → 2025-08-15 | Outpatient (CLI) | payer MEDICARE, SELFPAY ==
[2025-08-15 18:05] LABS: Hematocrit 39.5 % (40-54); Hemoglobin 13.8 g/dL (13.0-16.5); Immature Granulocytes Count 0.050 X10^3/uL (0.0-0.0); Mean Corp Hgb Conc 34.9 g/dL (32-36); Mean Corpuscular Volume 92.5 fL (80-94); Mean Platelet Vol. 10.5 fl (6.2-12.0); NRBC Flagged by Analyzer 0 % (0-5); Platelet Count 275 K/mm3 (150-450); RBC Distribution Width CV 11.9 % (11.6-14.6); RBC Distribution Width SD 40.0 fl (35.1-43.9); Red Blood Count 4.27 M/mm3 (4.6-6.2); White Blood Count 11.4 K/mm3 (4.4-11.0)
== END | disposition home or self-care (01) ==
LOC: MTLAB 16:45
PROVIDERS: PCP Family Medicine
DX: R23.2 Flushing (principal)
CPT/HCPCS: 36415; 85025